=== PATIENT | male | born 1960 | race Caucasian/White ===

== ENCOUNTER 2023-03-05 10:44 | Outpatient (OUT) | payer OTHER, SELFPAY ==
--- NOTE | 2023-03-05 11:12 | XR_ITS ---
The [address] [address] Patient Name: BELLE GEORGE MRN: [id number] date: 1960 Sex: M Assigned Patient Location: [facility] Current Patient Location: [facility] Accession/Order Number: [id number] Exam Date: 03/05/2023 11:12 Report Date: 03/05/2023 13:52 At the request of: RAMAN ROSALES Procedure: XR foot LT min 3V EXAM: XR foot LT min 3V HISTORY: LEFT FOOT PAIN . The patient had an injury to the foot 2 years ago. COMPARISON: None. TECHNIQUE: 4 views of the left foot were obtained. FINDINGS: There is no evidence of an acute fracture or dislocation. Mild degenerative changes are seen at the first metatarsophalangeal joint. Remainder the joint spaces throughout the foot are intact. An osteophyte arises from the plantar aspect of the calcaneus. Small amount of arteriovascular calcification is noted. XR/XR foot LT min 3V IMPRESSION: No acute fracture or dislocation. Degenerative changes are seen at the first metatarsophalangeal joint with joint space otherwise intact throughout. A small osteophyte is seen arising from the plantar aspect of the calcaneus. Direct comparison with a previous study may be helpful. Electronically authenticated by: RAMAN ELLIOTT Date: 03/05/2023 13:52
--- NOTE | 2023-03-05 11:12 | XR_ITS ---
[address] [address] Patient Name: BELLE GEORGE MRN: [id number] date: 1960 Sex: M Assigned Patient Location: [facility] Current Patient Location: [facility] Accession/Order Number: [id number] Exam Date: 03/05/2023 11:12 Report Date: 03/05/2023 13:32 At the request of: RAMAN ROSALES Procedure: XR ankle LT min 3V EXAM: XR ankle LT min 3V HISTORY: LEFT ANKLE PAIN COMPARISON: None. TECHNIQUE: 3 views FINDINGS: No acute fracture or dislocation. Maintained ankle mortise. Unremarkable soft tissues. XR/XR ankle LT min 3V IMPRESSION: Unremarkable exam. Electronically authenticated by: DUC NORMAN Date: 03/05/2023 13:32
== END 2023-03-05 10:45 | disposition home or self-care (01) ==
LOC: RAD 10:44
PROVIDERS: PCP Internal Medicine; Visit Provider Podiatrist Foot & Ankle Surgery
DX: M25.572 Pain in left ankle and joints of left foot (principal); M25.775 Osteophyte, left foot
CPT/HCPCS: 73610; 73630

== ENCOUNTER 2023-05-17 17:16 | Emergency (ER) | payer OTHER, SELFPAY ==
[2023-05-17 17:21] VITALS: BP 152/84; PULSE 76; RESP 20; TEMP 36.6; O2SAT 98; BMI 45.4
--- NOTE | 2023-05-17 17:33 | PC.NURSE ---
Complains of pain to back side of left leg from thigh down to ankle area. Skin pink and warm, no warmth, redness, or any break in skin noted. Patient denies injury to left leg.
--- NOTE | 2023-05-17 17:45 | ED.GENADUL1 ---
HPI - General Adult General Chief complaint: Extremity Injury, Lower Stated complaint: L LEG PAIN Time Seen by Provider: 05/17/23 17:21 Source: patient Mode of arrival: Wheelchair History of Present Illness HPI narrative: patient developed pain without provocation along the left lower leg - posterior and lateral left calf. He denied any recent or prior injury to the left lower leg. It started while he was sitting in a movie theater watching a movie and then it got worse throughout the night. He went to [facility] ED around 130am and was given IM Toradol and muscle relaxer. He seemed upset in telling me the details that he did not have testing done. He was diagn osed with calf strain and given instructions to alternate heat and ice, limit activity and take the muscle relaxer prescribed Patient comes to our ED stating that the pain is no better . PMHx includes DM, HTN, high cholesterol and CAD with stents He denied prior history of vascular disease, DVT or PE. Related Data Home Medications Medication Instructions Recorded Confirmed allopurinol 100 mg tablet 100 mg PO DAILY 05/17/23 05/17/23 atorvastatin 40 mg tablet 40 mg PO DAILY 05/17/23 05/17/23 clopidogrel 75 mg tablet 75 mg PO DAILY 05/17/23 05/17/23 clotrimazole-betamethasone 1 1 applic topical BID 05/17/23 05/17/23 %-0.05 % topical cream gabapentin 300 mg capsule 300 mg PO QPM 05/17/23 05/17/23 isosorbide mononitrate 30 mg 30 mg PO DAILY 05/17/23 05/17/23 tablet,extended release 24 hr lisinopril 20 mg tablet 20 mg PO DAILY 05/17/23 05/17/23 metformin 1,000 mg tablet 1,000 mg PO BID 05/17/23 05/17/23 semaglutide 2 mg/dose (8 mg/3 mL) 2 mg subcut QWEEK 05/17/23 05/17/23 subcutaneous pen injector (Ozempic) tamsulosin 0.4 mg capsule 0.4 mg PO DAILY 05/17/23 05/17/23 tizanidine 4 mg tablet 4 mg PO Q6H PRN muscle spasticity 05/17/23 05/17/23 Allergies Allergy/AdvReac Type Severity Reaction Status Date / Time No Known Drug Allergies Allergy Verified 05/17/23 17:26 Exam Narrative Exam Narrative: Nurses notes and vital signs reviewed and patient is not hypoxic. afebrile General: Well-appearing and in no apparent distress. Skin: Warm, dry, no pallor noted. No rash. Cardiovascular: Regular Rate and Rhythm without murmur, gallop or rub. Respiratory: No accessory muscle use or respiratory distress. Lungs are clear to auscultation, no wheezing, rales or rhonchi Musculoskeletal: Soft tissue tenderness along the posterior and lateral aspect of the left lower leg. Leah's negative. No left popliteal tenderness. No erythema, swelling or ecchymosis noted in the left lower leg. No left thigh or hamstring tenderness. No left knee effusion. Left ankle and foot with normal ROM, no calf or popliteal tenderness, no lower extremity edema/swelling Neurological: A&O x4. No cranial nerve dysfunction observed. No truncal ataxia. Moves all extremities. Sensation intact. Psychiatric: Cooperative and interactive. Normal mood and affect. Constitutional Vital Signs, click to edit/add: Last Vital Signs Temp 97.8 F 05/17/23 17:21 Pulse 76 05/17/23 17:21 Resp 20 05/17/23 17:21 BP 152/84 H 05/17/23 17:21 Pulse Ox 98 05/17/23 17:21 O2 Del Method Room Air 05/17/23 17:21 Course Vital Signs Vital signs: Vital Signs Temperature 97.8 F 05/17/23 17:21 Pulse Rate 76 05/17/23 17:21 Respiratory Rate 20 05/17/23 17:21 Blood Pressure 152/84 H 05/17/23 17:21 Pulse Oximetry 98 05/17/23 17:21 Oxygen Delivery Method Room Air 05/17/23 17:21 Temperature 97.8 F 05/17/23 17:21 Pulse Rate 76 05/17/23 17:21 Respiratory Rate 20 05/17/23 17:21 Blood Pressure 152/84 H 05/17/23 17:21 Pulse Oximetry 98 05/17/23 17:21 Oxygen Delivery Method Room Air 05/17/23 17:21 Medical Decision Making MDM Narrative Medical decision making narrative: d-dimer was negative, so I do not suspect deep vein thrombosis based on combination of this result and his examination. The patient has peripheral neuropathy so I cannot say what to what extent this affecting his leg pain. He was given IM Dilaudid in the emergency Department before being discharged home. He takes Plavix I cannot give additional NSAID. Yard he has Percocet at home as well as muscle relaxer. He does take gabapentin daily at night and I recommended he take that twice daily for the next few days see if that this pain. I instructed him to call his primary care provider on Friday to discuss further. Lab Data Labs: Lab Results 05/17/23 Range/Units 17:55 WBC 6.1 (4.0-11.0) 10^3/uL RBC 3.99 L (4.70-6.10) 10^6/uL Hgb 12.4 L (14.0-18.0) g/dL Hct 37.1 L (42.0-54.0) % MCV 93.0 (80.0-94.0) fL MCH 31.1 (25.9-34.0) pg MCHC 33.4 (29.9-35.2) g/dL RDW 12.9 (11.0-15.0) % Plt Count 224 (150-450) 10^3/uL MPV 10.4 (9.5-13.5) fL Neut % (Auto) 65.8 (43.0-75.0) % Lymph % (Auto) 22.8 (20.5-60.0) % Whiteside % (Auto) 8.6 (1.7-12.0) % Eos % (Auto) 2.3 (0.9-7.0) % Baso % (Auto) 0.2 (0.2-2.0) % Neut # (Auto) 4.0 (1.4-6.5) 10^3/uL Lymph # (Auto) 1.4 (1.2-3.8) 10^3/uL Whiteside # (Auto) 0.5 (0.3-0.8) 10^3/uL Eos # (Auto) 0.1 (0.0-0.7) 10^3/uL Baso # (Auto) 0.0 (0.0-0.1) 10^3/uL Abs Immat Gran (auto) 0.02 (0.00-0.03) 10^3/uL Imm/Tot Granulo (auto) 0.3 (0.0-0.5) % D-Dimer 0.22 (<=0.59) mg/L FEU Sodium 139 (136-145) mmol/L Potassium 4.5 (3.5-5.1) mmol/L Chloride 103 (98-107) mmol/L Carbon Dioxide 24.4 (21.0-32.0) mmol/L Anion Gap 16.1 BUN 22.0 H (7.0-18.0) mg/dL Creatinine 1.25 (0.70-1.30) mg/dL Est GFR ( Amer) >60 (>=60) Est GFR (Non-Af Amer) 59 L (>=60) BUN/Creatinine Ratio 17.6 Glucose 100 (74-106) mg/dL Calcium 8.9 (8.5-10.1) mg/dL Discharge Plan Discharge Chief Complaint: Extremity Injury, Lower Clinical Impression: Lower leg pain, Peripheral neuropathy Patient Disposition: Home, Self-Care Time of Disposition Decision: 18:29 Prescriptions / Home Meds: No Action allopurinol 100 mg tablet 100 mg PO DAILY atorvastatin 40 mg tablet 40 mg PO DAILY clopidogrel 75 mg tablet 75 mg PO DAILY clotrimazole-betamethasone 1-0.05 % cream 1 applic TOPICAL BID gabapentin 300 mg capsule 300 mg PO QPM isosorbide mononitrate 30 mg tablet extended release 24 hr 30 mg PO DAILY lisinopril 20 mg tablet 20 mg PO DAILY metformin 1,000 mg tablet 1,000 mg PO BID Ozempic 2 mg/dose (8 mg/3 mL) pen injector 2 mg SUBCUT QWEEK tamsulosin 0.4 mg capsule 0.4 mg PO DAILY tizanidine 4 mg tablet 4 mg PO Q6H PRN (Reason: muscle spasticity) Instructions: Peripheral Neuropathy (ED), Leg Pain (ED) Stand Alone Forms: Portal Instructions Referrals: ROSA M BEARD [Primary Care Provider] - 1 week
[2023-05-17] MEDS: ONDANSETRON 4 MG RAPDIS TABLET SL (17:47)
[2023-05-17 18:03] LABS: Basophils Percent Auto 0.2 % (0.2-2.0); Eosinophils Absolute Auto 0.1 10^3/uL (0.0-0.7); Eosinophils Percent Auto 2.3 % (0.9-7.0); Hematocrit 37.1 % (42.0-54.0); Hemoglobin 12.4 g/dL (14.0-18.0); Immature Granulocytes Abs Auto 0.02 10^3/uL (0.00-0.03); Immature Granulocytes Pct Auto 0.3 % (0.0-0.5); Lymphocytes Absolute Auto 1.4 10^3/uL (1.2-3.8); Lymphocytes Percent Auto 22.8 % (20.5-60.0); Mean Corpuscular HGB Conc 33.4 g/dL (29.9-35.2); Mean Corpuscular Hemoglobin 31.1 pg (25.9-34.0); Mean Platelet Volume 10.4 fL (9.5-13.5); Monocytes Absolute Auto 0.5 10^3/uL (0.3-0.8); Monocytes Percent Auto 8.6 % (1.7-12.0); Neutrophils Percent Auto 65.8 % (43.0-75.0); Platelet Count 224 10^3/uL (150-450); Red Blood Count 3.99 10^6/uL (4.70-6.10); Red Cell Distribution Width 12.9 % (11.0-15.0); White Blood Count 6.1 10^3/uL (4.0-11.0)
[2023-05-17 18:11] LABS: Anion Gap 16.1; BUN Creatinine Ratio 17.6; Calcium 8.9 mg/dL (8.5-10.1); Carbon Dioxide 24.4 mmol/L (21.0-32.0); Chloride 103 mmol/L (98-107); Estimated GFR (African America >60 (>=60); Estimated GFR (Non-African Ame 59 (>=60); Glucose 100 mg/dL (74-106); Potassium 4.5 mmol/L (3.5-5.1); Sodium 139 mmol/L (136-145)
[2023-05-17 18:24] LABS: D Dimer 0.22 mg/L FEU (<=0.59)
[2023-05-17] MEDS: HYDROMORPHONE HCL 1 MG/ML CARTRIDGE IM (18:51)
[2023-05-17 18:54] VITALS: BP 147/68; PULSE 70; RESP 20; O2SAT 97
== END 2023-05-17 19:08 | disposition home or self-care (01) ==
PROVIDERS: Emergency Provider Emergency Medicine; PCP Internal Medicine
DX: G62.9 Polyneuropathy, unspecified (principal); M79.605 Pain in left leg; E11.9 Type 2 diabetes mellitus without complications; I10 Essential (primary) hypertension; E78.00 Pure hypercholesterolemia, unspecified; I25.10 Atherosclerotic heart disease of native coronary artery without angina pectoris; Z95.5 Presence of coronary angioplasty implant and graft; Z79.899 Other long term (current) drug therapy; Z79.84 Long term (current) use of oral hypoglycemic drugs
CPT/HCPCS: 36415; 80048; 85025; 85378; 96372; 99284; J1170

== ENCOUNTER 2023-07-31 10:33 | Outpatient (OUT) | payer OTHER, SELFPAY ==
--- NOTE | 2023-07-31 | CONS_ITS ---
CONSULTATION DATE: 07/31/2023 TO: Dr. Garcia CHIEF COMPLAINT: Includes severe lower back pain, left leg pain. HISTORY OF PRESENT ILLNESS: Review of systems, past medical/surgical history were obtained and documented on the health questionnaire and is available upon request. He reports having a three month history of lower back pain and leg pain, which started suddenly. It occurred spontaneously and increased rapidly to its current state, where he now has 3-7/10 pain in the above mentioned areas, described as deep, aching in character with a sharp component. It is aggravated with activities such as standing, walking and performing transitioning maneuvers. Patient feels most comfortable in the semi-recumbent position. Denies any change in bowel and bladder habits, and reports tingling and numbness of his left lower extremity. CURRENT MEDICATION: Includes gabapentin 300 mg t.i.d. Although he was prescribed t.i.d., he takes this usually twice a day and sometimes even just once a day. He has also been enrolled in physical therapy, mainly aquatic therapy. He has been doing this for at least the last six weeks and reports he will be finishing up supervised therapy shortly. EXAM: His examination is notable for patient having mild hypoesthesia along the left L5 dermatome, very mild weakness of the left EHL. Straight leg raise is positive at approximately 90 degrees. Depressed left Achilles reflex. He had no signs consistent with myelopathy involving the lower extremities. IMAGING: I did review his lumbar MRI, was notable for a left L5 nerve root impingement, significant disc bulge at L4-5, and concomitant left L5 radiculopathy by EMG. IMPRESSION: Patient with chronic pain secondary to left L5 radiculopathy from displaced disc. RECOMMENDATIONS: I recommend he consider lumbar epidural steroid injection. We will reduce the dose of corticosteroid to 40 mg Depo-Medrol 1 mL. I have asked him to discontinue gabapentin. I have given him a weaning protocol, and we will start him on Zonegran 100 mg to 200 mg at h.s., and then we will stagger this with the use of baclofen 10 mg pills, half a pill to one pill at h.s. He is to start this approximately 2-4 days after initiating therapy with Zonegran. I have asked him to continue with aquatic therapy. I have gone over the details of the procedure with the patient. All his questions were answered. He agrees to proceed with the outlined plan. As part of providing excellent, safe, comprehensive care, the following was completed at our patient's visit: 1. A medication reconciliation and review to ensure accurate knowledge of current/active medications, including asking our patients to inform us about any [id number] medications or herbal remedies/nutritional supplements/alternative remedies. 2. A review to specifically ensure our patients have had annual screening for: elevated body mass index (BMI, see intake chart for exact total), tobacco use, screening for depression, and screening for unhealthy alcohol use. When screening is concerning, patients are provided with education and the specific recommendation to discuss the concerning health issue and treatment options with their primary care provider. SUSI
== END 2023-07-31 10:34 | disposition home or self-care (01) ==
LOC: PM 10:34
PROVIDERS: PCP Internal Medicine; Visit Provider Anesthesiology Pain Medicine
DX: M54.16 Radiculopathy, lumbar region (principal); M51.26 Other intervertebral disc displacement, lumbar region
CPT/HCPCS: G0463

== ENCOUNTER 2023-08-19 09:52 | Day surgery (SDC) | payer OTHER, SELFPAY ==
[2023-08-19 10:15] VITALS: BP 142/81; PULSE 70; RESP 16; TEMP 36.2; O2SAT 99
[2023-08-19 10:20] LABS: Glucometer 156 mg/dL (74-106)
[2023-08-19] MEDS: LIDOCAINE HCL 2% PF 100 MG/5 ML VIAL 2 ML INJ (11:41)
[2023-08-19] MEDS: METHYLPREDNISOLONE ACETATE 80 MG/ML VIAL INJ (11:41)
[2023-08-19] MEDS: 0.9 % SODIUM CHLORIDE 10 ML SYRINGE - SALINE FLUSH 2 ML INJ (11:41)
[2023-08-19] MEDS: BUPIVACAINE HCL 0.25% PF 25 MG/10 ML VIAL 2 ML INJ (11:41)
[2023-08-19] MEDS: IOHEXOL 240 MG/ML - 10 ML VIAL INJ (11:41)
--- NOTE | 2023-08-19 11:57 | P.ON_ITS ---
Date of procedure: 08/19/23 Pre-op diagnosis: Lumbar Radiculopathy Post-op diagnosis: same as pre-op Procedure: Lumbar 4/5 Epidural Steroid Injection Under fluoroscopic guidance Immediate complications none Solution used for injection: Marcaine 0.25% 2mL, 2cc Normal saline, Depo-Medrol 80mg Omnipaque 3 mL Anesthesia local 2% lidocaine up to 4ml Timeout process compliant After informed consent obtained. Patient brought to the procedure room placed in the prone position. Skin overlying the area was prepped and draped in a sterile fashion using betadine. 25 gauge needle used to raise a skin wheel with local anesthetic over the target area identified under fluoroscopy. A 17 gauge Touhy needle Was inserted over the anesthetized area and directed towards the inter- space under fluoroscopic guidance. Epidural space was identified with loss of resistance technique to air. Needle Tip placement confirmed with injection of contrast solution. Steroid solution was then injected. Anesthesia: Local Surgeon: Yancy Rodrigues Condition: stable
[2023-08-21 10:55] VITALS: BP 160/90; BP 164/82; PULSE 68; PULSE 72; RESP 20; O2SAT 97; O2SAT 98
== END 2023-08-19 11:52 | disposition home or self-care (01) ==
LOC: SURGOUT 09:52
PROVIDERS: PCP Internal Medicine; Visit Provider Anesthesiology Pain Medicine
DX: M54.16 Radiculopathy, lumbar region (principal)
CPT/HCPCS: 36415; 62323; 82948; J0665; J1040; Q9966

== ENCOUNTER 2023-08-28 09:37 | Outpatient (OUT) | payer OTHER, SELFPAY ==
--- OUTSIDE RECORDS SUMMARY | 2023-08-28 09:45 | XMS_ITS | CCD ---
Author Name Unknown Address [address] [place] [address] Organization [facility] Care Team Providers Care Web Analytics Developer Name Role Phone Sanju Beard Unavailable Unavailable Unavailable SANJU BEARD Primary Care Physician Unavail able Jermaine Turk Unavailable DO Sanju Beard Primary Care Provider DO Sanju Beard Attending Provider [phone] DR SANJU BEARD Primary Care Unavailable DOMINGUEZ, DR MARTE Admitting Unavailable DOMINGUEZ, DR MARTE Attending Unavailable DOMINGUEZ, DR MARTE Consulting Unavailable MARIAMA, DR ANAM Duong Consulting Unavailable DOMINGUEZ, DR MARTE Consulting Unavailable DOMINGUEZ, DR MARTE Admitting Unavailable DOMINGUEZ, DR MARTE Attending Unavailable CHIRAG, DR MEDEROS Primary Care Unavailable DOMINGUEZ, DR MARTE Admitting Unavailable DOMINGUEZ, DR MARTE Attending Unavailable DOMINGUEZ, DR MARTE Consulting Unavailable CHIRAG, DR MEDEROS Primary Care Unavailable MARIAMA, DR ANAM Duong Consulting Unavailable DOMINGUEZ, DR MARTE Admitting Unavailable DOMINGUEZ, DR MARTE Attending Unavailable DOMINGUEZ, DR MARTE Consulting Unavailable CHIRAG, DR MEDEROS Primary Care Unavailable IRENE PATINO Consulting Unavailable DOMINGUEZ, DR MARTE Admitting Unavailable DOMINGUEZ, DR MARTE Attending Unavailable DOMINGUEZ, DR MARTE Consulting Unavailable CHIRAG, DR MEDEROS Primary Care Unavailable CHACHA PANDYA Consulting Unavailable GEENA FLEMING Consulting Unavailable DOMINGUEZ, DR MARTE Admitting Unavailable DOMINGUEZ, DR MARTE Attending Unavailable DOMINGUEZ, DR MARTE Consulting Unavailable CHIRAG, DR MEDEROS Primary Care Unavailable Lani Luevano Admitting Unavailable Lani Luevano Referring Unavailable Sanju Beard Primary Care Unavailable Lani Luevano Attending Unavailable Sanju Beard Primary Care Unavailable Fer Beasley Attending Unavailable Fer Beasley Admitting Unavailable Lani Luevano Admitting Unavailable Sanju Beard Primary Care Unavailable Lani Luevano Attending Unavailable Henny Katz Attending Unavailable Henny Katz Admitting Unavailable Sanju Beard Primary Care Unavailable Estuardo Mix Consulting Unavailable Aleksandr Stewart Consulting Unavailable Steve Plaza Consulting Unavailable Antonio Bartlett Jr Unavailable Denise Mcintosh Consulting Unavailable Daniel Mg Consulting Unavailable Jennifer Ogden Consulting Unavailable Lani Luevano Consulting Unavailable Srinivas Majano Consulting Unavailable Everette Posadas Consulting Unavail able Ishan Justice Consulting Unavailable Ti Martinez Consulting Unavailab Aura Almaraz Consulting Unavailable Maribell Murguia Consulting Unavailable Joseph Boyce Consulting Unavailab Yas Marte Consulting Unavailable Jermaine Turk Consulting Unavailable Lani Luevano Attending Unavailable Lani Luevano Admitting Unavailable Sanju Beard [facility] Unavailable Sanju Beard [facility] Unavailable Sanju Beard Admitting Unavailable Sanju Beard Attending Unavailable Dr. Sanju Beard [facility] Katie Beard, Dr. Sanju Fletcher [facility] Katie Posadas II, Dr. Everette Marte Referring Unavailable Everette Luevano Attending Unavailable Dr. Sanju Beard [facility] Sanju Rowell [facility] Unavailable Axel Light Admitting Unavailable Axel Light Attending Unavailable Leodan GAY Referring Unavailable Leodan GAY Attending Unavailable Leodan GAY Admitting Unavailable Leodan GAY Admitting Unavailable Leodan GAY Attending Unavailable Estuardo MIX Attending Unavailable SANJU BEARD Referring Unavailable Joe Limon Attending Unavailable Leodan GAY Admitting Unavailable Leodan GAY Attending Unavailable NONE, XXXX Referring Unavailable Leodan GAY Attending Unavailable Leodan GAY Admitting Unavailable JAX, XXXX Referring Unavailable Joe Limon Attending Unavailable Joe Limon Admitting Unavailable Joe Limon Referring Unavailable IVA TINSLEY Attending Unavailable SANJU BEARD Referring Unavailable BRANDT ANTONIO Attending Unavailable BRANDT ANTONIO Referring Unavailable BRANDT ANTONIO Attending Unavailable YEYO TRUONG Attending Unavailable SANJU BEARD Attending Unavailable Allergies Allergy Classification Reported Allergen(s) Allergy Type Date of Onset Reaction(s) Facility (1 source) No Known Medication Allergies; Translations: [No Known Medication Allergies] Propensity to adverse reactions to drug (disorder) [facility] Repository Medications Current Medications Medication Drug Class(es) Dates Sig (Normalized) Sig (Original) 3 ML semaglutide 1.34 MG/ML Pen Injector [Ozempic] (6 sources) Start: 07-31-2022 Ozempic (1 mg dose) 4 mg/3 mL subcutaneous solution Refills(s) 0 Start Date: 07/31/22 Status: Ordered allopurinol 100 mg oral tablet (20 sources) Xanthine Oxidase Inhibitor Start: 10-11-2018 take 1 mg by mouth twice daily allopurinol 100 mg Tab mg tab(s), Oral, BID, Refills(s) 0 Start Date: 12/03/21 Status: Ordered take 1 tablet by mouth once ramsey y Allopurinol 100 MG Oral Tablet TAKE 1 TABLET DAILY. Quantity: 90 Refills: 3 Ordered: 30-Oct-2021 DO Active aspirin 81 mg delayed release oral tablet (20 sources) Platelet Aggregation Inhibitor, Nonsteroidal Anti-inflammatory Drug Start: 12-03-2021 take 1 mg by mouth once daily aspirin 81 mg Oral EC Tab mg tab(s), Oral, Daily, Refills(s) 0 Start Date: 12/03/21 Status: Ordered Start: 12-03-2021 take 1 mg by mouth once daily aspirin 81 mg Oral EC Tab mg tab(s), Oral, Daily, Refills(s) 0 Start Date: 12/03/21 Status: Ordered Start: 10-11-2018 take 81 mg by mouth once daily Aspirin Active 81 MG PO Daily October 11, 2018 1:00am atorvastatin 40 mg oral tablet (20 sources) HMG-CoA Reductase Inhibitor Start: 11-19-2021 take 1 mg by mouth once daily atorvastatin 40 mg Tab mg tab(s), Oral, Daily, Refills(s) 0 Start Date: 12/03/21 Status: Ordered Start: 10-16-2018 End: 11-19-2021 take 80 mg by mouth once daily in the evening Atorvastatin Discontinued 80 MG PO Every evening October 16, 2018 1:00am November 19, 2021 2:02pm Start: 10-13-2018 End: 10-16-2018 take 20 mg by mouth at bedtime Atorvastatin Discontinu ed 20 MG PO Bedtime October 13, 2018 1:00am October 16, 2018 10:04am carvedilol 6.25 mg oral tablet (20 sources) alpha-Adrenergic Petr, beta-Adrenergic Petr Start: 02-26-2022 take 1 tablet by mouth twice daily carvedilol 6.25 mg Tab 6.25 mg = 1 tab(s), Oral, BID Start Date: 02/26/22 Status: Ordered Start: 10-16-2018 take 1 tablet by jose th twice daily Carvedilol 12.5 MG Oral Tablet Take 1 tablet twice a day Quantity: 180 Refills: 3 Ordered: 28-Sep-2021 Everette Posadas MD Start : 28-Sep-2021 Active Start: 10-11-2018 End: 10-16-2018 take 1 tablet by mouth twice daily Carvedilol (Coreg) 6.25 mg Tablet Discontinued 6.25 MG PO Twice daily October 11, 2018 1:00am October 16, 2018 10:04am cephalexin 500 mg oral capsule (20 sources) Cephalosporin Antibacterial Start: 01-03-2022 take 1 capsule by mouth once daily Keflex 500 mg Cap 500 mg = 1 cap(s), Oral, Daily, # 30 cap(s), Refills(s) 0, Pharmacy: [id number], 185, cm, 12/03/21 10:02:00 EDT, Height/Length Dosing, 142, kg, 12/03/21 10:02:00 EDT, Weight Dosing Start Date: 01/03/22 Status: Ordered Start: 12-03-2021 take 1 capsule by mo [facility] once daily Keflex 500 mg Cap 500 mg = 1 cap(s), Oral, Daily, # 30 cap(s), Refills(s) 0, Pharmacy: [id number], 185, cm, 12/03/21 10:02:00 EDT, Height/Length Dosing, 142, kg, 12/03/21 10:02:00 EDT, Weight Dosing Start Date: 12/03/21 Status: Ordered Start: 11-23-2021 End: 01-01-2022 take 500 mg by mouth every six hours Cephalexin Active 500 MG PO Q6H January 01, 2022 9:20am Start: 04-16-2021 End: 11-19-2021 take 500 mg by mouth twice daily Cephalexin Discontinued 500 MG PO Twice daily 14 April 16, 2021 12:00am November 19, 2021 2:02pm cholecalciferol 0.125 mg oral tablet (2 sources) Vitamin D Start: 10-15-2018 take 1 tablet by mouth once daily in the morning Cholecalciferol (Vitamin D3) (Vitamin D3) 5,000 unit Tablet Active 5000 UNIT PO Every morning October 15, 2018 1:00am clopidogrel 75 mg oral tablet (20 sources) [id number] Platelet Inhibitor Start: 01-10-2022 End: 12-21-2023 take 1 tablet by mouth once daily Plavix 75 mg Tab 75 mg = 1 tab(s), Oral, Daily, X 90 day(s), # 90 tab(s), Refills(s) 3, Pharmacy: [id number], 185, cm, 07/31/22 11:06:00 EST, Height/Length Dosing, 150, kg, 07/31/22 11:06:00 EST, Weight Dosing Start Date: 12/26/22 Stop Date: 12/21/23 Status: Ordered Start: 01-10-2022 take 4 tablets by mouth once P lavix 75 mg Tab 300 mg = 4 tab(s), Oral, Once, 300 mg Loading Dose, # 4 tab(s), Refills(s) 0, Pharmacy: [id number], 186, cm, 01/10/22 14:52:00 EDT, Height/Length Dosing, 149, kg, 01/10/22 14:52:00 EDT, Weight Dosing Start Date: 01/10/22 Status: Ordered dulaglutide (12 sources) GLP-1 Receptor Agonist Start: 12-03-2021 Trulici ty Pen SubCutaneous, qWeek, Refills(s) 0 Start Date: 12/03/21 Status: Ordered Start: 10-11-2018 End: 11-19-2021 inject 1.5 mg by subcutaneous injection every week Dulaglutide Discontinued 1.5 MG SUBCUT every week October 15, 2018 1:00am November 19, 2021 6:09pm QTHURSDAY Trulicity 4.5 MG /0.5ML as directed Subcutaneous ONCE A WEEK Active Dulaglutide (Trulicity) 4.5 mg/0.5 mL pen injector (2 sources) Start: 11-19-2021 Dulaglutide (Trulicity) 4.5 mg/0.5 mL pen injector Active 4.5 MG SUBCUT TH November 19, 2021 12:00am indomethacin 25 mg oral capsule (7 sources) Nonsteroidal Anti-inflammatory Drug Start: 07-09-2022 take 1 mg by mouth three times daily indomethacin 25 mg Cap mg cap(s), Oral, TID Start Date: 07/09/22 Status: Ordered Insulin Aspart U-100 (Novolog Flexpen U-100 Insulin) 100 unit/mL (3 mL) insulin pen (2 sources) Start: 11-19-2021 inject 1 dose by subcutaneous injection three times daily Insulin Aspart U-100 (Novolog Flexpen U-100 Insulin) 100 unit/mL (3 mL) insulin pen Active 1 sliding scale dose SUBCUT Three times daily November 19, 2021 12:00am NovoLog (18 sources) Insulin Analog Start: 12-03-2021 NovoLog SubCutaneous, TIDAC, Refills(s) 0 Start Date: 12/03/21 Status: Ordered NovoLOG FlexPen 100 UNIT/ML as directed Subcutaneous SLIDING SCALE Active NovoLOG PenFill 100 UNIT/ML SOLN INJECT SUBCUTANEOUSLY DIRECTED. Quantity: 0 Refills: 0 Ordered: 30-Oct-2021 DO Active 3 ml insulin detemir 100 unt/ml pen injector (20 sources) Insulin Analog Start: 12-03-2021 Levemir FlexTo uch 100 units/mL subcutaneous solution SubCutaneous, Refills(s) 0 Start Date: 12/03/21 Status: Ordered Start: 12-03-2021 Levemir FlexTo uch 100 units/mL subcutaneous solution SubCutaneous, Refills(s) 0 Start Date: 12/03/21 Status: Ordered Start: 10-11-2018 Insulin Detemi r U-100 (Levemir Flextouch U-100 Insuln) 100 unit/mL (3 mL) Insulin Pen Active 32 UNIT SUBCUT Twice daily October 11, 2018 1:00am Isosorbide Dinitrate (14 sources) Nitrate Vasodilator Start: 12-03-2021 isosorbide dinitrate Oral, Refills(s) 0 Start Date: 12/03/21 Status: Ordered lisinopril 20 mg oral tablet (20 sources) Angiotensin Converting Enzyme Inhibitor Start: 10-16-2018 End: 01-01-2022 take 1 mg by mouth once daily lisinopril 20 mg Tab mg tab(s), Oral, Daily, Refills(s) 0 Start Date: 12/03/21 Status: Ordered Start: 10-11-2018 End: 10-16-2018 take 10 mg by mouth at bedtime Lisinopril Discontinued 10 MG PO Bedtime October 11, 2018 1:00am October 16, 2018 10:03am metFORMIN hydrochloride 1000 mg oral tablet (20 sources) Biguanide Start: 10-11-2018 End: 01-01-2022 take 1 mg by mouth twice daily metformin 1000 mg oral tablet mg tab(s), Oral, BID, Refills(s) 0 Start Date: 12/03/21 Status: Ordered take 1 tablet by jose th every twelve hours metFORMIN HCl - 1000 MG Oral Tablet TAKE 1 TABLET EVERY 12 HOURS. Quantity: 0 Refills: 0 Ordered: 30-Oct-2021 DO Active Multivitamins and Minerals (14 sources) Start: 12-03-2021 Multivitamins and Minerals Refill(s) 0 Start Date: 12/03/21 Status: Ordered nitroglycerin 0.4 mg/actuat mucosal spray (9 sources) Nitrate Vasodilator Start: 07-09-2022 nitroglyce rin 0.4 mg SubL [place] mg spray(s), SubLingual, q5min Start Date: 07/09/22 Status: Ordered Start: 10-13-2018 End: 02-10-2019 Nitroglycerin Discontinued 0 .4 MG SUBLINGUAL every 5 to 15 minutes October 13, 2018 1:00am February 10, 2019 12:02am until response; do not exceed 3 doses per episode Suflave oral powder for reconstitution kit (3 sources) Start: 05-02-2023 Suflave oral powder for reconstitution kit See Instructions, 1 EA, Refill(s) 0, Oral Please see instructions given by provider, [facility], 185, cm, 05/02/23 11:10:00 EDT, Height/Length Dosing, 158, kg, 05/02/23 11:10:00 EDT, Weight Dosing Start Date: 05/02/23 Status: Ordered tamsulosin hydrochloride 0.4 mg oral capsule (7 sources) alpha-Adrenergic Petr Start: 07-09-2022 take 1 capsule by mouth once daily tamsulosin 0.4 mg Cap 0.4 mg = 1 cap(s), Oral, Daily, # 90 cap(s), Refills(s) 3, Pharmacy: [facility], 185, cm, 07/09/22 10:50:00 EST, Height/Length Dosing, 151.4, kg, 07/09/22 10:50:00 EST, Weight Dosing Start Date: 07/09/22 Status: Ordered temazepam 15 mg oral capsule (7 sources) Benzodiazepine Start: 07-09-2022 take 1 mg by mouth once daily at bedtime temazepam 15 mg Cap mg cap(s), Oral, Once a day (at bedtime) Start Date: 07/09/22 Status: Ordered Vitamin D3 (14 sources) Start: 12-03-2021 Vitamin D3 Refills(s) 0 Start Date: 12/03/21 Status: Ordered Vitamin D3 125 MCG (5000 UT) (1 source) Vitamin D3 125 M CG (5000 UT) as directed Orally Active Zinc (3 sources) Start: 11-19-2021 take 50 mg by mouth once daily at bedtime Zinc Active 50 MG PO Daily at bedtime November 19, 2021 12:00am take 1 tablet by mouth once rasmey y Zinc 50 MG 1 tablet Orally Once a day Active Completed/Discontinued Medications Medication Drug Class(es) Dates Sig (Normalized) Sig (Original) benzonatate 200 mg oral capsule (2 sources) Non-narcotic Antitussive Start: 04-16-2021 End: 11-19-2021 take 200 mg by mouth three times daily Benzonatate Discontinued 200 MG PO Three times daily April 16, 2021 12:00am November 19, 2021 2:02pm celecoxib 200 mg oral capsule (10 sources) Nonsteroidal Anti-inflammatory Drug Start: 11-19-2021 End: 11-23-2021 take 1 capsule by mouth once daily Celecoxib (Celebrex) 200 mg Capsule Discontinued 200 MG PO Daily November 19, 2021 12:00am November 23, 2021 11:34am ciprofloxacin 500 mg oral tablet (4 sources) Quinolone Antimicrobial Start: 02-26-2022 take 1 tablet by mouth every twelve hours Cipro 500 mg Tab 500 mg = 1 tab(s), Oral, q12hr, Take 1 tab after stent removal the day of stent removal and 1 tab 12 hours after that., # 2 tab(s), Refills(s) 0, Pharmacy: [id number], 185, cm, 02/25/22 8:41:00 EDT, Height/Length Dosing, 146, kg, ... Start Date: 02/26/22 Status: Ordered Start: 12-03-2021 take 1 mg by mouth e very twelve hours Cipro 250 mg Tab mg tab(s), Oral, q12hr, Refills(s) 0 Start Date: 12/03/21 Status: Ordered diclofenac sodium 0.01 mg/mg topical gel (9 sources) Nonsteroidal Anti-inflammatory Drug Start: 07-09-2022 Voltaren Gel 1% Gel gm, Topical, QID Start Date: 07/09/22 Status: Ordered Start: 11-21-2021 Diclofenac Sod ium (Voltaren Arthritis Pain) 1 % Gel Active 2 GM TOPICAL Four times daily November 21, 2021 12:00am ibuprofen 800 mg oral tablet (2 sources) Nonsteroidal Anti-inflammatory Drug Start: 10-11-2018 End: 10-13-2018 take 800 mg by mouth three times daily Ibuprofen Discontinued 800 MG PO Three times daily October 11, 2018 1:00am October 13, 2018 3:00pm 3 ml insulin lispro 100 unt/ml pen injector (2 sources) Insulin Analog Start: 10-11-2018 End: 11-19-2021 inject 25 [IU] by subcutaneous injection once Insulin Lispro Discontinued 25 UNITS SUBCUT 3x/Day at 7a,12p,5p October 11, 2018 1:00am November 19, 2021 6:06pm isosorbide mononitrate 20 mg oral tablet (17 sources) Nitrate Vasodilator Start: 11-19-2021 End: 11-19-2021 take 30 mg by mouth once daily Isosorbide Mononitrate Discontinued 30 MG PO Daily November 19, 2021 2:04pm November 19, 2021 6:12pm Start: 09-17-2021 take 1 tablet by jose th once daily Isosorbide Mononitrate ER 30 MG Oral Tablet Extended Release 24 Hour Take 1 tablet daily Quantity: 90 Refills: 3 Ordered: 20-Sep-2021 Everette Posadas MD Start : 17-Sep-2021 Active Start: 10-16-2018 End: 11-19-2021 take 10 mg by mouth twice daily Isosorbide Mononitrate Discontinued 10 MG PO Twice Daily at 0700 and 1400 30 30 October 16, 2018 1:00am November 19, 2021 2:04pm K-Effervescent 25 mEq oral tablet, effervescent (7 sources) Start: 07-09-2022 take 1 tablet by mouth twice daily K-Effervescent 25 mEq oral tablet, effervescent 25 mEq = 1 tab(s), Oral, BID, # 180 tab(s), Refills(s) 3, Pharmacy: [facility], 185, cm, 07/09/22 10:50:00 EST, Height/Length Dosing, 151.4, kg, 07/09/22 10:50:00 EST, Weight Dosing Start Date: 07/09/22 Status: Ordered Multivitamin preparation (2 sources) Start: 10-11-2018 End: 01-01-2022 take 1 tablet by mouth once daily Multivitamin Discontinued 1 TAB PO Daily October 11, 2018 1:00am January 01, 2022 9:20am NovoLOG PenFill 100 UNIT/ML SOLN (5 sources) NovoLOG PenFill 100 UNIT/ML SOLN INJECT SUBCUTANEOUSLY DIRECTED. Quantity: 0 Refills: 0 Ordered: 30-Oct-2021 DO Active phenazopyridine hydrochloride 200 mg oral tablet (2 sources) Start: 04-16-2021 End: 11-19-2021 take 200 mg by mouth three times daily at mealtime Phenazopyridine Discontinued 200 MG PO Three times daily 05 13April 16, 2021 12:00am November 19, 2021 2:23pm administer with a full glass of water after each meal predniSONE 50 mg oral tablet (2 sources) Start: 04-16-2021 End: 11-19-2021 take 50 mg by mouth once daily Prednisone Discontinued 50 MG PO Daily 11 12April 16, 2021 12:00am November 19, 2021 2:03pm simvastatin 40 mg oral tablet (2 sources) HMG-CoA Reductase Inhibitor Start: 10-11-2018 End: 10-13-2018 take 40 mg by mouth at bedtime Simvastatin Discontinued 40 MG PO Bedtime October 11, 2018 1:00am October 13, 2018 3:01pm ticagrelor 90 mg oral tablet (2 sources) Start: 10-13-2018 End: 11-19-2021 take 1 tablet by mouth twice daily Ticagrelor (Brilinta) 90 mg Tablet Discontinued 90 MG PO Twice daily 180 90 October 13, 2018 1:00am November 19, 2021 2:03pm Trulicity 4.5 MG/0.5ML Subcutaneous Solution Pen-injector (8 sources) Trulicity 4.5 MG/0.5ML Subcutaneous Solution Pen-injector Inject once weekly Quantity: 0 Refills: 0 Ordered: 30-Oct-2021 DO Active Problems Active Problems Problem Classification Problem Date Documented Da te Episodic/Chronic Abdominal pain (1 source) Flank pain; Translations: [Flank pain] Episodic Acute myocardial infarction (3 sources) Myocardial infarction; Translations: [Myocardial infarction type 2] Onset: 11-19-2021 11-23-2021 Chronic Calculus of urinary tract (20 sources) Kidney stone; Translations: [Calculus of kidney] Onset: 11-19-2021 Resolved: 12-27-2021 Episodic Chronic obstructive pulmonary disease and bronchiectasis (2 sources) Bronchitis; Translations: [Bronchitis, not specified as acute or chronic] 04-16-2021 Episodic Conditions associated with dizziness or vertigo (1 source) Conditions associated with dizziness or vertigo; Translations: [H81.12 - Benign paroxysmal vertigo, left ear] Onset: 12-25-2021 Coronary atherosclerosis and other heart disease (15 sources) Coronary arteriosclerosis; Translations: [Coronary atherosclerosis of unspecified type of vessel, [place] or graft] Onset: 02-18-2022 10-12-2018 Chronic Diabetes mellitus with complications (2 sources) Hyperosmolarity due to secondary diabetes mellitus; Translations: [Type 2 diabetes mellitus with hyperosmolarity without nonketotic hyperglycemic-hyperos molar coma (NKHHC)] Onset: 12-27-2021 Resolved: 12-27-2021 Chronic Diabetes mellitus without complication (20 sources) Diabetes mellitus; Translations: [Diabetes mellitus without mention of complication, type II or unspecified type, not stated as uncontrolled] Onset: 11-19-2021 12-03-2021 Chronic Diabetes mellitus without complication (2 sources) Acute hyperglycemia; Translations: [Hyperglycemia, unspecified] 11-19-2021 Episodic Disorders of lipid metabolism (20 sources) Hyperlipidemia; Translations: [Other and unspecified hyperlipidemia] Onset: 02-18-2022 12-03-2021 Chronic Essential hypertension (20 sources) Benign essential hypertension; Translations: [Benign essential hypertension] Onset: 11-19-2021 Resolved: 12-27-2021 12-03-2021 Chronic Hyperplasia of prostate (8 sources) Benign prostatic hypertrophy without outflow obstruction; Translations: [Benign prostatic hyperplasia without lower urinary tract symptoms] Onset: 07-09-2022 Chronic Nonspecific chest pain (2 sources) Chest pain; Translations: [Chest pain, unspecified] 10-11-2018 Episodic Osteoarthritis (1 source) Unspecified osteoarthritis, unspecified site; Translations: [UNSPECIFIED OSTEOARTHRITIS UNS SITE] Onset: 02-18-2022 Chronic Other aftercare (1 source) penitentiary (current) use of aspirin; Translations: [SNF CURRENT USE OF ASPIRIN] Onset: 02-18-2022 Episodic Other aftercare (1 source) rat exterminator (current) use of oral hypoglycemic drugs; Translations: [SNF USE ORAL HYPOGLYCEMIC DX] Onset: 02-18-2022 Episodic Other aftercare (1 source) Other alf (current) drug therapy; Translations: [OTH GOLF PROFESSIONAL CURRENT DRUG THERAPY] Onset: 02-18-2022 Episodic Other aftercare (1 source) rat exterminator (current) use of insulin; Translations: [SNF CURRENT USE OF INSULIN] Onset: 02-18-2022 Episodic Other aftercare (2 sources) Long-term current use of aspirin; Translations: [penitentiary (current) use of aspirin] Onset: 07-09-2022 Episodic Other aftercare (1 source) Long-term current use of anticoagulant; Translations: [penitentiary (current) use of anticoagulants] Onset: 05-02-2023 Episodic Other and unspecified benign neoplasm (1 source) Serrated polyp of colon; Translations: [Serrated polyp of colon] Episodic Other connective tissue disease (1 source) Presence of right artificial hip joint; Translations: [PRESENCE RIGHT ARTIFICIAL HIP JOINT] Onset: 02-18-2022 Chronic Other connective tissue disease (8 sources) Muscle pain; Translations: [Myalgia and myositis, unspecified] Episodic Other gastrointestinal disorders (1 source) Abnormal feces; Translations: [Other fecal abnormalities] Onset: 05-02-2023 Episodic Other injuries and conditions due to external causes (1 source) Foreign body in bladder; Translations: [Foreign body in bladder, initial encounter] Onset: 12-03-2021 Episodic Other lower respiratory disease (8 sources) Dyspnea; Translations: [Shortness of breath] Episodic Other nutritional; endocrine; and metabolic disorders (20 sources) Body mass index 40+ - severely obese; Translations: [Body Mass Index 45.0-49.9, adult] Onset: 05-02-2023 Chronic Other nutritional; endocrine; and metabolic disorders (20 sources) Morbid obesity; Translations: [Morbid (severe) obesity due to excess calories] Onset: 12-03-2021 Chronic Other nutritional; endocrine; and metabolic disorders (1 source) Obesity, unspecified; Translations: [OBESITY UNSPECIFIED] Onset: 02-18-2022 Chronic Other nutritional; endocrine; and metabolic disorders (1 source) Body mass index (BMI) 40.0-44.9, adult; Translations: [BODY MASS INDEX BMI 40.0-44.9 ADULT] Onset: 02-18-2022 Chronic Other nutritional; endocrine; and metabolic disorders (1 source) Morbid (severe) obesity due to excess calories; Translations: [E66.01 - Morbid (severe) obesity due to excess calories] Onset: 11-19-2021 Chronic Other nutritional; endocrine; and metabolic disorders (2 sources) History of diabetes mellitus type 2; Translations: [Personal history of other endocrine, nutritional and metabolic disease] 11-19-2021 Episodic Other screening for suspected conditions (not mental disorders or infectious disease) (11 sources) Thallium stress test abnormal; Translations: [Other nonspecific abnormal results of function study of cardiovascular system] Onset: 11-19-2021 10-12-2018 Episodic Residual codes; unclassified (2 sources) Obstructive sleep apnea syndrome; Translations: [Obstructive sleep apnea (adult) (pediatric)] Chronic Residual codes; unclassified (1 source) Sleep apnea, unspecified; Translations: [SLEEP APNEA UNSPECIFIED] Onset: 02-18-2022 Chronic Unclassified (7 sources) Long-term current use of aspirin 07-09-2022 Unclassified (1 source) Z01.812 - Encounter for preprocedural laboratory examination; Translations: [Z01.812 - Encounter for preprocedural laboratory examination] Onset: 01-01-2022 Unclassified (1 source) R06.02 - Shortness of breath; Translations: [R06.02 - Shortness of breath] Onset: 12-26-2021 Unclassified (3 sources) Drug therapy finding 05-02-2023 Urinary tract infections (4 sources) Urinary tract infectious disease; Translations: [Urinary tract infection, site not specified] 11-19-2021 Episodic Urinary tract infections (1 source) Urinary tract infections; Translations: [N39.0 - Urinary tract infection, site not specified] Onset: 11-19-2021 Past or Other Problems Problem Classification Problem Date Documented Da te Episodic/Chronic Acute and unspecified renal failure (6 sources) Acute kidney failure, unspecified; Translations: [Injury of kidney] Onset: 11-19-2021 Resolved: 12-27-2021 Episodic Conditions associated with dizziness or vertigo (1 source) Dizziness and giddiness; Translations: [Dizziness and giddiness] Onset: 04-03-2022 Episodic Coronary atherosclerosis and other heart disease (2 sources) Presence of coronary angioplasty implant and graft; Translations: [PRESENCE COR ANGPLSTY IMPLANT AND GRAFT] Onset: 11-19-2021 Episodic Fluid and electrolyte disorders (3 sources) Hyponatremia; Translations: [Hypo-osmolality and hyponatremia] Onset: 11-19-2021 11-19-2021 Episodic Immunizations and screening for infectious disease (1 source) Contact with and (suspected) exposure to tuberculosis; Translations: [CONTACT WITH EXPOSURE TUBERCULOSIS] Onset: 02-07-2022 Episodic Malaise and fatigue (1 source) Weakness; Translations: [R53.1 - Weakness] Onset: 11-19-2021 Episodic Other aftercare (1 source) penitentiary (current) use of anticoagulants; Translations: [SNF CURRNT USE ANTICOAGULANTS] Onset: 02-07-2022 Episodic Other injuries and conditions due to external causes (1 source) Foreign body in bladder, initial encounter; Translations: [FOREIGN BODY BLADDER INITIAL ENCNTR] Onset: 12-05-2021 Episodic Other nervous system disorders (1 source) Other abnormalities of gait and mobility; Translations: [R26.89 - Other abnormalities of gait and mobility] Onset: 11-19-2021 Episodic Other nutritional; endocrine; and metabolic disorders (1 source) Personal history of other endocrine, nutritional and metabolic disease; Translations: [Z86.39 - Personal history of other endocrine, nutritional and metabolic disease] Onset: 11-19-2021 Episodic Unclassified (8 sources) Never smoked tobacco; Translations: [Never a smoker] Results Test Name Value Interpretation Reference Range Facility [facility] 08-13-2023 Forms [id number]# 1.00TIFF Normal [facility] MR LUMBAR SPINE WO CONTRASTo n 07-09-2023 MR LUMBAR SPINE WO CONTRAST EXAM: MR LUMBAR SPINE WO CONTRAST History: LUMBAR RADICULOPATHY Technique: Multiplanar multisequence MRI of the lumbar spine was obtained without intravenous contrast. Comparison: Lumbar spine radiographs May 23, 2023 Findings: The conus medullaris ends normally. The alignment of the lumbar spine is anatomic. The vertebral body heights are well maintained. There is no aggressive bone marrow signal abnormality. Mild intervertebral disc height loss at L3-L4 through L5-S1 intraosseous hemangiomas noted within multiple vertebral bodies. L1-L2: No significant disc bulge or high-grade spinal canal or neuroforaminal stenosis. L2-L3: Small disc bulge. Mild facet arthropathy. No neural foraminal or spinal canal stenosis. L3-L4: Small disc bulge with tiny central annular fissure. Mild facet arthropathy. Mild bilateral neural foraminal stenosis. Mild spinal canal stenosis. L4-L5: Small disc bulge with tiny central annular fissure. Superimposed left central disc extrusion measures approximately 5 mm in AP dimension by 12 mm in transverse dimension and courses inferiorly along the posterior aspect of L5 for a length of approximately 11 mm. There is impingement of the left L5 nerve between this disc protrusion in the anterior margin of the left L4 facet joint prior to its entry into the neural foramen. Mild bilateral facet arthropathy. Mild bilateral neural foraminal stenosis. L5-S1: Small disc bulge. Mild facet arthropathy. No neural foraminal or spinal canal stenosis. Visualized paravertebral soft tissues appear within normal limits. IMPRESSION: Degenerative changes of the lumbar spine as detailed. ELECTRONICALLY SIGNED BY: Steve Can, DO Normal Not Available Reminderson 07-01-2023 Reminders - From: Lou Bartlett MA To: N - Clinical; Sent: 07/01/2023 09:51:32 EST Show up: 05/12/2026 09:51:00 EDT Subject: Colonoscopy recall 3 years Reminder/Recall Last colonoscopy: 06/12/2023 Repeat: 3 years Reason: Tubular Adenoma Normal [facility] Postoperative Documentson Postoperative Documents [id number]# 1.00TIFF Normal [facility] IntraOperative Documentson 1 08-17-2022 IntraOperative Documents [id number]#1 .00TIFF Normal [facility] Consenton 06-13-2023 Consent [id number]# 1.00TIFF Normal [facility] Discharge Instructionson Discharge Instructions [id number]# 1.00TIFF Normal [facility] Main OR Intraoperative Recor don 06-13-2023 Main OR Intraoperative Record IntraOp Document Type FT Summary Primary Physician: Joe Limon MD Finalized Date/Time: 06/13/23 14:51:07 Pt. Name: MIRABESSYEVERETTE/Sex: 1960 Male Med Rec #: [id number] Physician: Joe Limon MD Financial #: [id number] Pt. Type: O Room/Bed: Endo 10/09 Admit/Disch: 06/12/23 14:00:52 - 06/12/23 15:59:00 Institution: Case Times FT Entry 1 Patient Times In Room 06/12/23 15:02:00 Out Room 06/12/23 15:27:00 Procedure Times Start 06/12/23 15:08:00 Stop 06/12/23 15:25:00 Anesthesia Times Start 06/12/23 15:02:00 Stop 06/12/23 15:27:00 Time at [facility] 06/12/23 15:20:00 Last Modified By: Yola Schreiber RN 06/12/23 15:27:22 General Comments: 06/13/23 chart opened for charge review per Cecelia Santamaria RN. [place] Case Attendance FT Entry 1 Entry 2 Entry 3 Case Attendee Dbe Lopez CRNA, RN, Minerva Long Role Performed [employer] - Primary Staff - Other Time In 06/12/23 15:02:00 06/12/23 15:02:00 06/12/23 15:02:00 Time Out 06/12/23 15:27:00 06/12/23 15:27:00 06/12/23 15:27:00 Procedure COLONOSCOPY(.) COLONOSCOPY(.) COLONOSCOPY(.) Comments Last Modified By: Abdoul PHILLIP, Yola Schreiber RN, Yola Schreiber RN, Yola You 06/12/23 15:27:31 06/12/23 15:27:31 06/12/23 15:27:31 Entry 4 Entry 5 Case Attendee Kaitlyn Salas MD, John E. Role Performed Scrub - Primary Surgeon - Primary Time In 06/12/23 15:02:00 06/12/23 15:02:00 Time Out 06/12/23 15:27:00 06/12/23 15:27:00 Procedure COLONOSCOPY(.) COLONOSCOPY(.) Comments Last Modified By: Abdoul PHILLIP, Yola Schreiber RN, Yola You 06/12/23 15:27:31 06/12/23 15:27:31 Perioperative Protocols FT Pre-Care Text: Implements protective measures prior to operative or invasive procedure, confirms identity before the operative or invasive procedure, verifies operative procedure, surgical site, and laterality Entry 1 Procedure(s) COLONOSCOPY(.) Patient Identity Birthday, ID Band Verified (select at Check, Patient least 2): Participation Consents / H and P Anesthesia Consent, Operative Site N/A Verified HandP, Surgery/Procedure Marking Verified Consent Surgical Site No Laterality Verified n/a Verified Procedure Verified Yes Correct Patient Yes Position Verified Availability Equipment, Medication Prep Dry n/a Verified (If Applicable) PreOp Antibiotic No Time Out Deb Lopez CRNA, Given Participants Abdoul PHILLIP, Aldo Hood Kirstyn K, Kaitlyn Salas Mourany MD, John E. Time Out Complete 06/12/23 15:05:00 Outcomes Met? Yes Last Modified By: Yola Schreiber RN 06/12/23 15:05:21 Post-Care Text: The patient is free from signs and symptoms of injury caused by extraneous objects Allergy Information FT Pre-Care Text: Verifies allergies Entry 1 Allergies Reviewed? Yes Allergies Reviewed Self/Patient With Outcomes Met? Yes Last Modified By: Yola Schreiber RN 06/12/23 15:05:28 Post-Care Text: The patient received appropriate medication(s) safely administered during the perioperative period Surgical Procedures FT Entry 1 Procedure Description Procedure COLONOSCOPY Modifiers . Surgeon Description Colonoscopy with sigmoid colon polypectomy with hot snare. descending colon polypectomies x2. Primary Procedure Yes Primary Surgeon Joe Limon MD Start 06/12/23 15:08:00 Stop 06/12/23 15:25:00 Anesthesia Type General Surgical Service General Wound Class 2 - Clean-Contaminated Last Modified By: Yola Schreiber RN 06/12/23 15:27:36 General Case Data FT Pre-Care Text: Classifies surgical wound, implements aseptic technique, initiates traffic control Entry 1 Case Information OR ENDO 1 FT Case Level Level 2 Wound Class 2 - Clean-Contaminated Specialty General ASA Class 2 Preop Diagnosis Positive cologuard Postop Same As Preop No Postop Diagnosis Sigmoid colon polyp, Outcomes Met? Yes descending colon polyps Last Modified By: Yola Schreiber RN 06/12/23 15:20:53 Post-Care Text: The patient is free from signs and symptoms of infection Skin Assessment (Pre Procedure) FT Pre-Care Text: Implements protective measures to prevent skin/ tissue injury due to thermal or mechanical sources Evaluates for signs and symptoms of physical injury to skin and tissue Entry 1 Skin Integrity Intact, Lucan, Warm, and Skin Abnormality No Dry Outcomes Met? Yes Last Modified By: Yola Schreiber RN 06/12/23 15:06:04 Post-Care Text: The patient is free from signs and symptoms of injury caused by extraneous objects Patient Positioning FT Pre-Care Text: Identifies physical alterations that require additional precautions for procedure-specific positioning, verifies presence of prosthetics or corrective devices, positions the patient, evaluates the patient for signs and symptoms of injury as a result of positioning Entry 1 Procedure COLONOSCOPY(.) Body Position Lateral, (more content not included)... Normal [facility] Consent for Treatmenton Consent for Treatment [id number]#1 .00TIFF Normal [facility] Discharge Instructionson Discharge Instructions EVERETTE GEORGE :1960 Visit Date:06/12/2023 Inpatient Discharge Instructions Your Care Team Admitting Physician - Joe Limon MD Referring Physician - Joe Limon MD Reason for Your Visit POSITIVE COLAGAURD Your Diagnosis Positive colorectal cancer screening using Cologuard test Tests Performed Pathology Tissue Exam -- Results Pending -- Please visit your patient portal for your results or contact your primary care physician. This Is Your Medications List allopurinol (allopurinol 100 mg Tab) aspirin (aspirin 81 mg Oral EC Tab) atorvastatin (atorvastatin 40 mg Tab) carvedilol (carvedilol 6.25 mg Tab) cephalexin (Keflex 500 mg Cap) cholecalciferol (Vitamin D3) clopidogrel (Plavix 75 mg Tab) clopidogrel (Plavix 75 mg Tab) diclofenac topical (Voltaren Gel 1% Gel) gabapentin (gabapentin 300 mg Cap) indomethacin (indomethacin 25 mg Cap) insulin aspart (NovoLog) insulin detemir (Levemir FlexTouch 100 units/mL subcutaneous solution) isosorbide dinitrate lisinopril (lisinopril 20 mg Tab) metformin (metformin 1000 mg oral tablet) multivitamin with minerals (Multivitamins and Minerals) nitroglycerin (nitroglycerin 0.4 mg SubL [place]) potassium bicarbonate (K-Effervescent 25 mEq oral tablet, effervescent) semaglutide (Ozempic (1 mg dose) 4 mg/3 mL subcutaneous solution) tamsulosin (tamsulosin 0.4 mg Cap) temazepam (temazepam 15 mg Cap) Procedure History Cystoscopic removal of ureteric stent (02/26/2022), Cystoscopic removal of ureteric stent (02/14/2022), Stone retrieval basket (02/14/2022), Cardiac catheterization, left heart (01/11/2022), Cystoscopy (11/20/2021), Cystourethroscopy with dilation of urethral stricture, Placement of stent in cardiac conduit, Prosthetic arthroplasty of hip, Total replacement of hip. Discharge Vitals Temperature (Temporal Artery) 36.9 ?C Heart Rate (Monitored) 75 Respiratory Rate 10 Blood Pressure 97/85 Height 185 cm Weight 158 kg BMI 46.17 What to do next Instructions From Your Doctor Event Name Event Result Pharmacy Information Other: [place], [place] Previously Scheduled Follow-Up Appointments Friday 10:30 AM EST With: DOMINGUEZ ACEVEDO, Estuardo Peralta Where: [facility] Comment on above: Result Comment: Elec tronically Signed By: Hermes PHILLIP, Vanessa\.br\Date and Time Signed: 06/12/23 15:40 EDT Inpatient Patient Summaryon 06-12-2023 Inpatient Patient Summary [place] [id number] [facility] Clinical Discharge Instructions PERSON INFORMATION Name: EVERETTE GEORGE [facility]IANS Admitting Physician: Joe Limon MD Attending Physician: Joe Limon MD PCP: SANJU BEARD DO Discharge Diagnosis: Comment: PATIENT EDUCATION INFORMATION Instructions: Colonoscopy, Adult, Care After Medication Leaflets: Follow up: Type Location Start Finish [facility] Office Visit [facility] 07/09/2023 10:30 AM 07/09/2023 10:45 AM Confirmed MEDICATION LIST Medications to Continue with No Changes Other Medications allopurinol (allopurinol 100 mg Tab) By Mouth 2 times a day. aspirin (aspirin 81 mg Oral EC Tab) By Mouth every day. atorvastatin (atorvastatin 40 mg Tab) By Mouth every day. carvedilol (carvedilol 6.25 mg Tab) 1 Tablets By Mouth 2 times a day. cephalexin (Keflex 500 mg Cap) 1 Capsules By Mouth every day. Refills: 0. cholecalciferol (Vitamin D3) clopidogrel (Plavix 75 mg Tab) 1 Tablets By Mouth every day. clopidogrel (Plavix 75 mg Tab) 1 Tablets By Mouth every day for 90 Days. Refills: 3. diclofenac topical (Voltaren Gel 1% Gel) Topical 4 times a day. gabapentin (gabapentin 300 mg Cap) 1 Capsules By Mouth 2 times a day. indomethacin (indomethacin 25 mg Cap) By Mouth 3 times a day. insulin aspart (NovoLog) Subcutaneous before meals. insulin detemir (Levemir FlexTouch 100 units/mL subcutaneous solution) Subcutaneous. isosorbide dinitrate By Mouth. lisinopril (lisinopril 20 mg Tab) By Mouth every day. metformin (metformin 1000 mg oral tablet) By Mouth 2 times a day. multivitamin with minerals (Multivitamins and Minerals) nitroglycerin (nitroglycerin 0.4 mg SubL [place]) Sublingual every 5 minutes. potassium bicarbonate (K-Effervescent 25 mEq oral tablet, effervescent) 1 Tablets By Mouth 2 times a day. Refills: 3. semaglutide (Ozempic (1 mg dose) 4 mg/3 mL subcutaneous solution) tamsulosin (tamsulosin 0.4 mg Cap) 1 Capsules By Mouth every day. Refills: 3. temazepam (temazepam 15 mg Cap) By Mouth once a day (at bedtime). Comment: Normal [facility] Main OR PACU I Recordon Main OR PACU I Record PACU Phase I Document Type FT Summary Primary Physician: Joe Limon MD Finalized Date/Time: 06/12/23 16:15:00 Pt. Name: EVERETTE GEORGE Madeline Hinds./Sex: 1960 Male Med Rec #: [id number] Physician: Joe Limon MD Financial #: [id number] Pt. Type: O Room/Bed: Endo 10/09 Admit/Disch: 06/12/23 14:00:52 - Institution: Case Times PACU I FT Pre-Care Text: Identifies barriers to communication and implements measures to provide psychological support Develops individualized plan of care, and ensures continuity of care Maintains patient's dignity and privacy, and maintains patient confidentiality Identifies and reports philosophical, cultural, and spiritual beliefs and values Identifies individual values and wishes concerning care Implements aseptic technique, and administers prescribed antibiotic therapy and immunizing agents as ordered Evaluates postoperative tissue perfusion Implements thermoregulation measures, and monitors body temperature Evaluates postoperative respiratory status Evaluates postoperative cardiac status Evaluates postoperative neurological status Assesses pain control, collaborated in initiating patient-controlled analgesia and implements alternative methods of pain control Verifies allergies, administers prescribed medications and solutions, evaluates response to medications Entry 1 In PACU I 06/12/23 15:29:00 Discharge from PACU 06/12/23 15:59:00 I Outcomes Met? Yes Last Modified By: Vanessa Mirza RN 06/12/23 16:14:43 Post-Care Text: The patient demonstrates knowledge of the expected response to the operative or invasive procedure The patient's care is consistent with the individualized perioperative plan of care The patient's right to privacy is maintained The patient's value system, lifestyle, ethnicity, and culture are considered, respected, and incorporated into the perioperative plan of care The patient participates in decisions affecting his or her perioperative plan of care The patient is free from signs and symptoms of infection The patient has wound/tissue perfusion consistent with or improved from baseline levels established preoperatively The patient is at or returning to normothermia at the conclusion of the immediate postoperative period The patient's respiratory function is consistent with or improved from baseline levels established preoperatively The patient's cardiovascular status is consistent with or improved from baseline levels established preoperatively The patient's cardiovascular status is consistent with or improved from baseline levels established preoperatively The patient demonstrates and/or reports adequate pain control throughout the perioperative period The patient received appropriate medication(s), safely administered during the perioperative period Acuity Level PACU I FT Entry 1 Start Time 06/12/23 15:29:00 Stop Time 06/12/23 15:59:00 Acuity Level Acuity Level I Last Modified By: Vanessa Mirza RN 06/12/23 16:14:56 Finalized By: Vanessa Mirza RN Document Signatures Signed By: Vanessa Mirza RN 06/12/23 16:15 Normal [facility] Main OR Preoperative Recordo n 06-12-2023 Main OR Preoperative Record Holding Area Document Type FT Summary Primary Physician: Joe Limon MD Finalized Date/Time: 06/12/23 14:16:20 Pt. Name: REYNALDORADHAEVERETTE D.O.B./Sex: 1960 Male Med Rec #: [id number] Physician: Joe Limon MD Financial #: [id number] Pt. Type: O Room/Bed: Endo 10/09 Admit/Disch: 06/12/23 14:00:52 - Institution: Case Times Holding FT Pre-Care Text: Verifies consent for planned procedure, identifies individual values and wishes concerning care, includes family members in perioperative teaching Secures patient's records' belongings, and valuables, maintains patient's dignity and privacy, and maintains patient confidentiality Entry 1 In Holding 06/12/23 14:05:00 Outcomes Met? Yes Last Modified By: Shira Ribeiro RN 06/12/23 14:15:17 Post-Care Text: The patient participates in decisions affecting his or her perioperative plan of care The patient's right to privacy is maintained Surgery Checklist FT Entry 1 Patient Birthday, ID Band Procedure History and Physical, Identification: Check, Patient Verification: Surgical Consent, With Participation Patient NPO after Midnight: Yes Date/Time: 06/12/23 10:00:00 Personal Items: Glasses, Jewelry Personal Items glasses, ring, right Comment: hip replacement, clothes, shoes Limitations: n/A Complaints of Pain: No Pain Comment: denies Operative Site n/a Marking: Marked By: n/a Availability Equipment Verified: Does Patient Smoke No Patient states Yes Comment - Adult - Genet postop adult Supervision supervision available Case Cancelled in No Holding Area see comments below for reason Last Modified By: Shira Ribeiro RN 06/12/23 14:16:17 General Comments: Pt finished colon prep at 1000, states stool is clear liquid yellow /,RN Finalized By: Shira Ribeiro RN Document Signatures Signed By: Shira Ribeiro RN 06/12/23 14:16 Normal [facility] Monitor Recordon 06-12-2023 Monitor Record [id number] 1.00TIFF Normal [facility] Monitor Record [id number]# 1.00TIFF Normal [facility] Operative Reporton Operative Report Patient: EVERETTE GEORGE Age: 63 years Sex: Male : 1960 Associated Diagnoses: None Author: Joe Limon MD Pre-Procedure Procedure Date 06/12/2023 16:13:00 . Procedure Type: Colonoscopy with removal of tumor(s), polyp(s), or other lesion(s) by snare technique. Procedure provider Performed by Joe Limon MD. Current history and physical Documented on chart. Cystoscopic removal of ureteric stent/Lt ([id number]) on 02/26/2022 at 61 Years. Cystoscopic removal of ureteric stent ([id number]) on 02/14/2022 at 61 Years. Stone retrieval basket ([id number]) on 02/14/2022 at 61 Years. Cardiac catheterization, left heart ([id number]) on 01/11/2022 at 61 Years. Cystoscopy laft stent placement ([id number]) on 11/20/2021 at 61 Years. Placement of stent in cardiac conduit ([id number]). Cystourethroscopy with dilation of urethral stricture ([id number]). Total replacement of hip (procedure) ([id number]). Insertion of hip prosthesis (procedure) ([id number]).. Past Medical History No active or resolved past medical history items have been selected or recorded.. Family History Heart disease Father Mother Diabetes mellitus type 2 Brother Sister . Procedure History Cystoscopic removal of ureteric stent/Lt ([id number]) on 02/26/2022 at 61 Years. Cystoscopic removal of ureteric stent ([id number]) on 02/14/2022 at 61 Years. Stone retrieval basket ([id number]) on 02/14/2022 at 61 Years. Cardiac catheterization, left heart ([id number]) on 01/11/2022 at 61 Years. Cystoscopy laft stent placement ([id number]) on 11/20/2021 at 61 Years. Placement of stent in cardiac conduit ([id number]). Cystourethroscopy with dilation of urethral stricture ([id number]). Total replacement of hip (procedure) ([id number]). Insertion of hip prosthesis (procedure) ([id number]).. Colorectal neoplasm risk assessment Average risk. Informed Consent After discussing the rationale, risks and benefits, and alternatives to this procedure, the patient provided signed consent for the procedure. Pre-procedure diagnosis: Diagnostic: Positive Cologuard. Medications (Selected) Inpatient Medications Ordered Lactated Ringers IV Deja 1000 mL 1,000 mL: 1,000 mL, IV, 100 mL/hr, Routine, Start date 06/12/23 14:08:00 EDT, 10 hour(s), Total volume (mL): 1,000 Sodium Chloride 0.9% IV Deja 1000 mL 1,000 mL: 1,000 mL, IV, 20 mL/hr, Routine, Start date 06/12/23 6:40:00 EDT, 50 hour(s), Total volume (mL): 1,000 Prescriptions Prescribed K-Effervescent 25 mEq oral tablet, effervescent: 25 mEq = 1 tab(s), Oral, BID, # 180 tab(s), Refills(s) 3, Pharmacy: [facility], 185, cm, 07/09/22 10:50:00 EST, Height/Length Dosing, 151.4, kg, 07/09/22 10:50:00 EST, Weight Dosing Keflex 500 mg Cap: 500 mg = 1 cap(s), Oral, Daily, # 30 cap(s), Refills(s) 0, Pharmacy: [id number], 185, cm, 12/03/21 10:02:00 EDT, Height/Length Dosing, 142, kg, 12/03/21 10:02:00 EDT, Weight Dosing Plavix 75 mg Tab: 75 mg = 1 tab(s), Oral, Daily, X 90 day(s), # 90 tab(s), Refills(s) 3, Pharmacy: [id number], 185, cm, 07/31/22 11:06:00 EST, Height/Length Dosing, 150, kg, 07/31/22 11:06:00 EST, Weight Dosing tamsulosin 0.4 mg Cap: 0.4 mg = 1 cap(s), Oral, Daily, # 90 cap(s), Refills(s) 3, Pharmacy: [facility], 185, cm, 07/09/22 10:50:00 EST, Height/Length Dosing, 151.4, kg, 07/09/22 10:50:00 EST, Weight Dosing Documented Medications Documented Levemir FlexTouch 100 units/mL subcutaneous solution: SubCutaneous, Refills(s) 0, Blood glucose Multivitamins and Minerals: Refill(s) 0, Prophylaxis NovoLog: SubCutaneous, TIDAC, Refills(s) 0, Blood glucose Ozempic (1 mg dose) 4 mg/3 mL subcutaneous solution: Refills(s) 0, Blood glucose Plavix 75 mg Tab: 75 mg = 1 tab(s), Oral, Daily, Blood Thinner Vitamin D3: Refills(s) 0, Prophylaxis Voltaren Gel 1% Gel: gm, Topical, QID, Pain allopurinol 100 mg Tab: mg tab(s), Oral, BID, Refills(s) 0, Gout pain aspirin 81 mg Oral EC Tab: mg tab(s), Oral, Daily, Refills(s) 0, Prophylaxis atorvastatin 40 mg Tab: mg tab(s), Oral, Daily, Refills(s) 0, High cholesterol carvedilol 6.25 mg Tab: 6.25 mg = 1 tab(s), Oral, BID, High blood pressure gabapentin 300 mg Cap: 300 mg = 1 cap(s), Oral, BID, Refills(s) 0, Neuropathy indomethacin 25 mg Cap: mg cap(s), Oral, TID, Inflammation isosorbide dinitrate: Oral, Refills(s) 0, High blood pressure lisinopril 20 mg Tab: mg tab(s), Oral, Daily, Refills(s) 0, High blood pressure metformin 1000 mg oral tablet: mg tab(s), Oral, BID, Refills(s) 0 nitroglycerin 0.4 mg SubL [place]: mg spray(s), SubLingual, q5min, Chest pain temazepam 15 mg Cap: mg cap(s), Oral, Once a day (at bedtime), Sleep ASA Classification: Class III. . Monitoring: See anesthesia record. . Procedure The procedure was performed in the hospital. See anesthesia record for sedation given during procedure. Rectal exam was performed and was normal. The patient was positioned s (more content not included)... Normal [facility] Comment on above: Result Comment: Elec tronically Signed By: Braxton ACEVEDO, Joe Boyer.br\Date and Time Signed: 06/12/23 16:15 EDT Outpatient Surgery Discharge Instructionon 06-12-2023 Outpatient Surgery Discharge Instruction [place] [id number] Patient Discharge Instructions PERSON INFORMATION Name: EVERETTE GEORGE Date of : 1960 Current Date: 06/12/2023 15:30:43 PHYSICIANS Admitting Physician: Braxton ACEVEDO, Joe Mcknight Discharge Diagnosis: EVERETTE GEORGE has been given the following list of follow-up instructions, prescriptions, and patient education materials: IF UNABLE TO CONTACT YOUR PHYSICIAN AND YOU FEEL IT IS AN EMERGENCY, GO TO THE NEAREST EMERGENCY ROOM OR CALL 911 I, EVERETTE GEORGE, have received the attached patient education materials/instruction s and have verbalized understanding: May we do a follow up call? Yes No I was present when discharge instructions were given Patient Signature Date Clinican/Nurse Signature Date Follow up: Type Location Start Finish State [facility] Office Visit [facility] ANNALEE Mercado 07/09/2023 10:30 AM 07/09/2023 10:45 AM Confirmed Pharmacy Information: Other: [facility] You may receive a survey from [employer] asking you to rate your care experience. Your feedback is important and will help us understand what we do well and how we can improve the quality of care we provide to you, your loved ones and our community. It?s an honor to serve you. Thank you for choosing [facility] HERE ARE THE MEDICATION CHANGES THAT OCCURRED DURING YOUR HOSPITAL STAY Medications to Continue with No Changes Other Medications allopurinol (allopurinol 100 mg Tab) By Mouth 2 times a day. aspirin (aspirin 81 mg Oral EC Tab) By Mouth every day. atorvastatin (atorvastatin 40 mg Tab) By Mouth every day. carvedilol (carvedilol 6.25 mg Tab) 1 Tablets By Mouth 2 times a day. cephalexin (Keflex 500 mg Cap) 1 Capsules By Mouth every day. Refills: 0. cholecalciferol (Vitamin D3) clopidogrel (Plavix 75 mg Tab) 1 Tablets By Mouth every day. clopidogrel (Plavix 75 mg Tab) 1 Tablets By Mouth every day for 90 Days. Refills: 3. diclofenac topical (Voltaren Gel 1% Gel) Topical 4 times a day. gabapentin (gabapentin 300 mg Cap) 1 Capsules By Mouth 2 times a day. indomethacin (indomethacin 25 mg Cap) By Mouth 3 times a day. insulin aspart (NovoLog) Subcutaneous before meals. insulin detemir (Levemir FlexTouch 100 units/mL subcutaneous solution) Subcutaneous. isosorbide dinitrate By Mouth. lisinopril (lisinopril 20 mg Tab) By Mouth every day. metformin (metformin 1000 mg oral tablet) By Mouth 2 times a day. multivitamin with minerals (Multivitamins and Minerals) nitroglycerin (nitroglycerin 0.4 mg SubL [place]) Sublingual every 5 minutes. potassium bicarbonate (K-Effervescent 25 mEq oral tablet, effervescent) 1 Tablets By Mouth 2 times a day. Refills: 3. semaglutide (Ozempic (1 mg dose) 4 mg/3 mL subcutaneous solution) tamsulosin (tamsulosin 0.4 mg Cap) 1 Capsules By Mouth every day. Refills: 3. temazepam (temazepam 15 mg Cap) By Mouth once a day (at bedtime). PATIENT EDUCATION INFORMATION Instructions: Colonoscopy, Adult, Care After The following information offers guidance on how to care for yourself after your procedure. Your health care provider may also give you more specific instructions. If you have problems or questions, contact your health care provider. What can I expect after the procedure? After the procedure, it is common to have: ? A small amount of blood in your stool for 24 hours after the procedure. ? Some gas. ? Mild cramping or bloating of your abdomen. Follow these instructions at home: Eating and drinking ? Drink enough fluid to keep your urine pale yellow. ? Follow instructions from your health care provider about eating or drinking restrictions. ? Resume your normal diet as told by your health care provider. Avoid heavy or fried foods that are hard to digest. Activity ? Rest as told by your health care provider. ? Avoid sitting for a long time without moving. Get up to take short walks every 1?2 hours. This is important to improve blood flow and breathing. Ask for help if you feel weak or unsteady. ? Return to your normal activities as told by your health care provider. Ask your health care provider what activities are safe for you. Managing cramping and bloating ? Try walking around when you have cramps or feel bloated. ? If directed, apply heat to your abdomen as told by your health care provider. Use the heat source that your health care provider recommends, such as a moist heat pack or a heating pad. ? Place a towel between your skin and the heat source. (more content not included)... Normal [facility] Patient Education - Texton 1 08-12-2022 Patient Education - Text Radiology Colonoscopy, Adult, Care After The following information offers guidance on how to care for yourself after your procedure. Your health care provider may also give you more specific instructions. If you have problems or questions, contact your health care provider. What can I expect after the procedure? After the procedure, it is common to have: ? A small amount of blood in your stool for 24 hours after the procedure. ? Some gas. ? Mild cramping or bloating of your abdomen. Follow these instructions at home: Eating and drinking ? Drink enough fluid to keep your urine pale yellow. ? Follow instructions from your health care provider about eating or drinking restrictions. ? Resume your normal diet as told by your health care provider. Avoid heavy or fried foods that are hard to digest. Activity ? Rest as told by your health care provider. ? Avoid sitting for a long time without moving. Get up to take short walks every 1?2 hours. This is important to improve blood flow and breathing. Ask for help if you feel weak or unsteady. ? Return to your normal activities as told by your health care provider. Ask your health care provider what activities are safe for you. Managing cramping and bloating ? Try walking around when you have cramps or feel bloated. ? If directed, apply heat to your abdomen as told by your health care provider. Use the heat source that your health care provider recommends, such as a moist heat pack or a heating pad. ? Place a towel between your skin and the heat source. ? Leave the heat on for 20?30 minutes. ? Remove the heat if your skin turns bright red. This is especially important if you are unable to feel pain, heat, or cold. You have a greater risk of getting burned. General instructions ? If you were given a sedative during the procedure, it can affect you for several hours. Do not drive or operate machinery until your health care provider says that it is safe. ? For the first 24 hours after the procedure: ? Do not sign important documents. ? Do not drink alcohol. ? Do your regular daily activities at a slower pace than normal. ? Eat soft foods that are easy to digest. ? Take [id number]-qsmwrnx and prescription medicines only as told by your health care provider. ? Keep all follow-up visits. This is important. Contact a health care provider if: ? You have blood in your stool 2?3 days after the procedure. Get help right away if: ? You have more than a small spotting of blood in your stool. ? You have large blood clots in your stool. ? You have swelling of your abdomen. ? You have nausea or vomiting. ? You have a fever. ? You have increasing pain in your abdomen that is not relieved with medicine. These symptoms may be an emergency. Get help right away. Call 911. ? Do not wait to see if the symptoms will go away. ? Do not drive yourself to the hospital. Summary ? After the procedure, it is common to have a small amount of blood in your stool. You may also have mild cramping and bloating of your abdomen. ? If you were given a sedative during the procedure, it can affect you for several hours. Do not drive or operate machinery until your health care provider says that it is safe. ? Get help right away if you have a lot of blood in your stool, nausea or vomiting, a fever, or increased pain in your abdomen. This information is not intended to replace advice given to you by your health care provider. Make sure you discuss any questions you have with your health care provider. Document Revised: 03/20/2022 Document Reviewed: 03/20/2022 [employer] Patient Education ? 2022 [employer]. [facility] Progress Note-Physicianon Progress Note-Physician Patient: EVERETTE GEORGE Age: 63 years Sex: Male : 1960 Associated Diagnoses: None Author: Deb Lopez CRNA Preoperative Information Anesthesia Preop Info: Time patient last ate or drank 06/12/2023 09:00:00. Anesthesia history: Patient history: No prior anesthetic problems. Informed consent: Signed by patient. Re-evaluation prior to induction: Initial evaluation reviewed: No significant change. Review of Systems Respiratory: Negative except as documented in history of present illness. Cardiovascular: Negative except as documented in history of present illness. Health Status Allergies: Allergic Reactions (Selected) No Known Allergies, Allergies (1) Active Reaction No Known Allergies None Documented Current medications: (Selected) Inpatient Medications Ordered Lactated Ringers IV Deja 1000 mL 1,000 mL: 1,000 mL, IV, 100 mL/hr, Routine, Start date 06/12/23 14:08:00 EDT, 10 hour(s), Total volume (mL): 1,000 Sodium Chloride 0.9% IV Deja 1000 mL 1,000 mL: 1,000 mL, IV, 20 mL/hr, Routine, Start date 06/12/23 6:40:00 EDT, 50 hour(s), Total volume (mL): 1,000 Prescriptions Prescribed K-Effervescent 25 mEq oral tablet, effervescent: 25 mEq = 1 tab(s), Oral, BID, # 180 tab(s), Refills(s) 3, Pharmacy: [facility], 185, cm, 07/09/22 10:50:00 EST, Height/Length Dosing, 151.4, kg, 07/09/22 10:50:00 EST, Weight Dosing Keflex 500 mg Cap: 500 mg = 1 cap(s), Oral, Daily, # 30 cap(s), Refills(s) 0, Pharmacy: [id number], 185, cm, 12/03/21 10:02:00 EDT, Height/Length Dosing, 142, kg, 12/03/21 10:02:00 EDT, Weight Dosing Plavix 75 mg Tab: 75 mg = 1 tab(s), Oral, Daily, X 90 day(s), # 90 tab(s), Refills(s) 3, Pharmacy: [id number], 185, cm, 07/31/22 11:06:00 EST, Height/Length Dosing, 150, kg, 07/31/22 11:06:00 EST, Weight Dosing tamsulosin 0.4 mg Cap: 0.4 mg = 1 cap(s), Oral, Daily, # 90 cap(s), Refills(s) 3, Pharmacy: [facility], 185, cm, 07/09/22 10:50:00 EST, Height/Length Dosing, 151.4, kg, 07/09/22 10:50:00 EST, Weight Dosing Documented Medications Documented Levemir FlexTouch 100 units/mL subcutaneous solution: SubCutaneous, Refills(s) 0, Blood glucose Multivitamins and Minerals: Refill(s) 0, Prophylaxis NovoLog: SubCutaneous, TIDAC, Refills(s) 0, Blood glucose Ozempic (1 mg dose) 4 mg/3 mL subcutaneous solution: Refills(s) 0, Blood glucose Plavix 75 mg Tab: 75 mg = 1 tab(s), Oral, Daily, Blood Thinner Vitamin D3: Refills(s) 0, Prophylaxis Voltaren Gel 1% Gel: gm, Topical, QID, Pain allopurinol 100 mg Tab: mg tab(s), Oral, BID, Refills(s) 0, Gout pain aspirin 81 mg Oral EC Tab: mg tab(s), Oral, Daily, Refills(s) 0, Prophylaxis atorvastatin 40 mg Tab: mg tab(s), Oral, Daily, Refills(s) 0, High cholesterol carvedilol 6.25 mg Tab: 6.25 mg = 1 tab(s), Oral, BID, High blood pressure gabapentin 300 mg Cap: 300 mg = 1 cap(s), Oral, BID, Refills(s) 0, Neuropathy indomethacin 25 mg Cap: mg cap(s), Oral, TID, Inflammation isosorbide dinitrate: Oral, Refills(s) 0, High blood pressure lisinopril 20 mg Tab: mg tab(s), Oral, Daily, Refills(s) 0, High blood pressure metformin 1000 mg oral tablet: mg tab(s), Oral, BID, Refills(s) 0 nitroglycerin 0.4 mg SubL [place]: mg spray(s), SubLingual, q5min, Chest pain temazepam 15 mg Cap: mg cap(s), Oral, Once a day (at bedtime), Sleep, Home Medications (22) Active allopurinol 100 mg Tab , Oral, BID aspirin 81 mg Oral EC Tab , Oral, Daily atorvastatin 40 mg Tab , Oral, Daily carvedilol 6.25 mg Tab 6.25 mg = 1 tab(s), Oral, BID gabapentin 300 mg Cap 300 mg = 1 cap(s), Oral, BID indomethacin 25 mg Cap , Oral, TID isosorbide dinitrate , Oral K-Effervescent 25 mEq oral tablet, effervescent 25 mEq = 1 tab(s), Oral, BID Keflex 500 mg Cap 500 mg = 1 cap(s), Oral, Daily Levemir FlexTouch 100 units/mL subcutaneous solution , SubCutaneous lisinopril 20 mg Tab , Oral, Daily metformin 1000 mg oral tablet , Oral, BID Multivitamins and Minerals nitroglycerin 0.4 mg SubL [place] , SubLingual, q5min NovoLog , SubCutaneous, TIDAC Ozempic (1 mg dose) 4 mg/3 mL subcutaneous solution Plavix 75 mg Tab 75 mg = 1 tab(s), Oral, Daily Plavix 75 mg Tab 75 mg = 1 tab(s), Oral, Daily tamsulosin 0.4 mg Cap 0.4 mg = 1 cap(s), Oral, Daily temazepam 15 mg Cap , Oral, Once a day (at bedtime) Vitamin D3 Voltaren Gel 1% Gel , Topical, QID , Medications (2) Active Scheduled: (0) Continuous: (2) Lactated Ringers 1,000 mL 1,000 mL, IV, 100 mL/hr Sodium Chloride 0.9% 1,000 mL 1,000 mL, IV, 20 mL/hr PRN: (0) Problem list: All Problems Aspirin long-term use / SNOMED CT 7087854617 / Confirmed BMI 45.0-49.9, adult / SNOMED CT 4750028425 / Confirmed BPH (benign prostatic hyperplasia) / SNOMED CT 026489284 / Confirmed Diabetes / SNOMED CT 033085563 / Confirmed HTN (hypertension) / SNOMED CT 9240649547 / Confirmed Hyperlipidemia / SNOMED CT 96337399 / Confirm (more content not included)... Normal [facility] Comment on above: Result Comment: Elec tronically Signed By: Deb Lopez CRNA\.br\Date and Time Signed: 06/12/23 16:11 EDT Progress Note-Physician Patient: EVERETTE GEORGE Age: 63 years Sex: Male : 1960 Associated Diagnoses: None Author: Deb Lopez CRNA Postoperative Information Postoperative disposition: Postoperative disposition: Home. Optimetrix number: Optimetrix number [id number]. Anesthetic utilized: General. Health Status Allergies: Allergic Reactions (Selected) No Known Allergies Physical Examination Vital Signs 06/12/2023 15:40 EDT Heart Rate Monitored 75 bpm Respiratory Rate Monitored 12 br/min Systolic Blood Pressure 133 mmHg Diastolic Blood Pressure 57 mmHg LOW Blood Pressure Location Left arm Mean Arterial Pressure, Cuff 82 mmHg SpO2 98 % 06/12/2023 15:35 EDT Heart Rate Monitored 75 bpm Respiratory Rate Monitored 10 br/min Systolic Blood Pressure 97 mmHg Diastolic Blood Pressure 85 mmHg Blood Pressure Location Left arm Mean Arterial Pressure, Cuff 89 mmHg SpO2 97 % 06/12/2023 15:29 EDT Temperature Temporal Artery 36.9 DegC Heart Rate Monitored 83 bpm Respiratory Rate Monitored 22 br/min Systolic Blood Pressure 128 mmHg Diastolic Blood Pressure 71 mmHg Blood Pressure Location Left arm Mean Arterial Pressure, Cuff 90 mmHg SpO2 96 % 06/12/2023 15:25 EDT Heart Rate Monitored 81 bpm bpm Respiratory Rate 17 br/min br/min SpO2 98 % % 06/12/2023 15:24 EDT Systolic Blood Pressure 114 mmHg mmHg Diastolic Blood Pressure 77 mmHg mmHg 06/12/2023 15:21 EDT Systolic Blood Pressure 111 mmHg mmHg Diastolic Blood Pressure 69 mmHg mmHg 06/12/2023 15:20 EDT Heart Rate Monitored 84 bpm bpm Respiratory Rate 17 br/min br/min SpO2 98 % % 06/12/2023 15:18 EDT Systolic Blood Pressure 148 mmHg mmHg Diastolic Blood Pressure 93 mmHg mmHg 06/12/2023 15:15 EDT Heart Rate Monitored 77 bpm bpm Respiratory Rate 18 br/min br/min Systolic Blood Pressure 103 mmHg mmHg Diastolic Blood Pressure 94 mmHg mmHg SpO2 99 % % 06/12/2023 15:12 EDT Systolic Blood Pressure 97 mmHg mmHg Diastolic Blood Pressure 68 mmHg mmHg 06/12/2023 15:10 EDT Heart Rate Monitored 79 bpm bpm Respiratory Rate 17 br/min br/min SpO2 99 % % 06/12/2023 15:09 EDT Systolic Blood Pressure 117 mmHg mmHg Diastolic Blood Pressure 67 mmHg mmHg 06/12/2023 15:06 EDT Systolic Blood Pressure 137 mmHg mmHg Diastolic Blood Pressure 73 mmHg mmHg 06/12/2023 15:05 EDT Heart Rate Monitored 75 bpm bpm Respiratory Rate 14 br/min br/min SpO2 100 % % 06/12/2023 15:04 EDT Systolic Blood Pressure 174 mmHg mmHg Diastolic Blood Pressure 96 mmHg mmHg 06/12/2023 15:02 EDT Systolic Blood Pressure 146 mmHg mmHg Diastolic Blood Pressure 125 mmHg mmHg 06/12/2023 14:22 EDT Systolic Blood Pressure 154 mmHg HI Diastolic Blood Pressure 85 mmHg Blood Pressure Location Left arm 06/12/2023 14:20 EDT Temperature Temporal Artery 36.3 DegC Heart Rate Monitored 75 bpm Respiratory Rate Monitored 13 br/min Systolic Blood Pressure 185 mmHg HI Diastolic Blood Pressure 101 mmHg HI Blood Pressure Location Left arm SpO2 97 % Pain Assessment: Controlled, Pain Assessment 06/12/2023 15:29 EDT Numeric Pain Scale 0 = No pain . General: Awake, Alert, Appropriate. Respiratory: Adequate air exchange, Non-labored. Cardiovascular: Stable, Normal peripheral perfusion. Neurological: Neurologic exam at baseline. No changes.. Assessment Anesthetic outcome No anesthetic complications noted. No nausea/vomiting. Review / Management Condition: Stable. Plan Transfer/Discharge: Transfer/Discharge Discharge when meets criteria ( From PACU to Ambulatory Surgery Unit, and To home ). Normal [facility] Comment on above: Result Comment: Elec tronically Signed By: Deb Lopez CRNA.pop\Date and Time Signed: 06/12/23 16:10 EDT Coding Summaryon 05-23-2023 Coding Summary [employer] 64 FuyprnasNIj5tWd+PGhlY WQ+LB6LXWYoC56daZLtlE 8yV1AXJOwGSyieHABLDYu FWiWeykNzSX3icYRiUVWq IC8+SK0pJOIiTxzmrTNma 1Y9oXT4D05ylk1xTWggwZ G1UWPpYpQpljhut4ankYo 6IDcuNmluOyBt SJDedU77REB4dX00Tw32q GTtkYUpa3hgcWq6CoShEJ FoPBV7bKrgEKrpt4JjWKO hC21xfNDum3E1 RRRzaRbnzFZwGsFawQL9b M2hVAbfbbfsz2dkacryVz k3yt34kMMkd8Q7cMU5S7O kxaS2AVDmoGGp TbhrjGNKwU6ujgcmk7lts nluUwGwYTGvLKu6MQl6ZH WxsUucRrLsCF13BMZ7PQY hixVmT9JaIKEq eWkcCkS3k0K0Mm6GB9PMQ jqqR3MHBSFKKYecpZG+PC 36hv78A8BlJrfhKzu7SZH oYAO3cWU4uY9d KQVwYWbid1E0xGK6R5Qaz kZpol7py8kdGYTaTUnzY4 8tpEVpg5C1URDizYT3JCA evUgjSiBikB76 Oyc+KBDuvKdhu0WjKrbnm 4hbc4ksaUo4WfnbSLSsdn RenGevNEA9d6LfQy1dIYW iqKI7uIP3dN7f XjPbZoG8LMzzB429BuFkf EFbWoiaZ44cM5ObpZW+PH XyPbw3RHYxtLsdRY7lV3N hZGRpbmctbGVm mAfkXV0mFQWzfualRCIge G8yDTIgN3a6JgBfYoQ3BL qjO6QmIJBvyctpFh04qI7 hHhFtCgJ0OJkc L7QiweY2DJZbdMWuFDurL PS1T66ya1F2MNUeVUSkZW N0kVT1rM2ubOjjgmftlLG mdDsgdmVydGlj JJgzOBkrM123XZSqxFteV kNvZGluZyBEYXRlOiAgMT AvMTMvMjAyMzwvdGQ+PHR pSTL8dErnNAHa rVDvKYbnTr8hzEpqsRfqW G7tRELuoynaJCKawA6xSY MljPOkaBicBP8kRKMdwqt zw181XcDxWXL8 OHIyeQArR1VpzC3nXhWxX UYxHCAsD5NixJHnTGinD1 16TOetHxM3AQLpqnRrG4L sLWFsaWduOiB0 b4P7Fz1Fe0LunlzqM2Lcd MHvCxRyMgqdQBw0H3BoVb wvdHI+NV65NJNoKS92AVo 5GGG8zWrqKMvc LPXuM1LcjQ6pWdAwBBEkI GRkOyc+PHRhYmxlIHdpZH RoPScxMDAlJyBzdHlsZT0 iKt6aDTRnKGYr lMujsELcCuAsx6gnFZDrA KviPS3hpFcpZ4OtoCB3RO Uah6m0Es27A29tX2UodZB +TZNgsBF0wBX8 gQ3jMmYdTiT9OFscF663Q dJpeFJbDewwk5rcw0vvmY h8IqB3DZTqrnMvkEldWRT 7d7CoPi75L65q IHdpZHRoPSIxNSUiIHZhb Dvauy7cbA9dPw6+PGNvbC O7rBU4pB5vSqXnZxH2UWk dE945XsAofGMk Djcry1kua5fzgKl1EwSsW VZjnaEthHyiDSA5r9XjDw 43O9ZyqVqky9QsQmf9tv1 2wAHku2L3lNR0 C8TtNKCsqbznmAKsyAxiM Q3lUTFfgagsTVNdyN4wIF WpG0x8RhHrIqM6YEnrL2J jfqL8HFRiqYIs ZLArpGFNkH6qgnazq2zok cjzJbKwVQPySMt4FAg7BU KkbUnpLaQzPHR5ObY8OLJ 8aHElgR2lkNlc qsbnaU7lVpc+YXW2hOXol WFGCN7jVacgdAM+PHRkIH U1cMqmXDscHLLqvS1uAYH yW6m7CbIzRcN5 IPysV6CjjmR8VIRfsCAwM RDlnWEXtB2bendny1fgfc jvAsLlKFBfJEd8WDj3GSB saWduOiBsZWZ0 SoC0HQF2tYBuyM6jiXvyf irodC2yRbu+QmlydGggRG U9THr0Z0UzCdp1DDZgvAn qMC7vmZZrTNvj Ud2wwToitCvnLM4tBIPyc mtiw213XbZvn3atJKHlrL QgYUxhEFO4Z72px1U8PQE wOHThCMC5qTH0 iG4lrAhufwtyfHFjfGavh bSchCpbEDoiRBtaH078CR HgmGscAnLeORb6R6UsXme 3YWGaoPwbRA1p yGEtSZxsVb1akXutnZgjI P1bYFQpxvbjx399IxRax3 cfMFFbcYGsLLtyXFL7J84 uh6G7OMRpGASw AUN7pBC7nP3cvOrxbdyqm GVmdDsgdmVydGljYWwtYW jaH749AXZbfCurDoDstHo 8S6AlBhe0ZCEk iZolZD3gjYPvMTxhIn1mk CxpqWsqIR8eQBJtgxvts8 94EcXxw2zlKUDipOXmDYb xLVG0A18jc6Z0 YUVeJSApJXF4mKE5qM1ed GlnbjogbGVmdDsgdmVydG fqZNbkIXlgR709TTGcjVb nPlBhdGllbnQg ACrhPYh6A3IxBbfcnON+P S53OGFkZC57wFSxbCWhc4 bxdZd3CzFyOQYdBVF2wZv cOLmva1FtODVb R25ztXMpv9J6AYKvvXwqg MVcWiPesQO0rX6rDVdrws dzk2aebbpnHoilr7aerk2 6oB17H72oSVhb ZHRoPSIzMCUiIHZhbGlnb v5mqM9xIy5+HSEatHC2pM T6uO1pMXOeGqA3NMfdI53 9InRvcCIvPjxj e0wko1ldyVz1NvU3SEOdq cPvpNsdLVS4f0GgOz69Z7 9sIHdpZHRoPSIyMCUiIHZ coGvkrd8mbM4c Ii8+MNGqePW7mQS1nF6vO dNwRiM1KVaoU749TnZcaR ZlUbkiD49jA6LxwVS+PHR eFpl0YNBrlYlz YI9ecABpLYkmJe1zYBA3G eBiQyWvHYzyY2RzQWSacb dqykvocJG7PYNbSMYpyM4 2Zs2eeDgbDPJj nTWHnA4wnhcmq3xrefsvF gNlIYRaBJo8UKi2TMXzrJ fgIyAnQAY3LmS9FZV8dPF ksT1eyQcdegou gG9pF2JtSAValzeuVj99k E4pBrMnDwW6UCpgZib+U1 GERY1BWspLSdpbQ2yZWDt TKGEOLI30GQ94 qLKdi9K8hHI3D8NdYPWse yphhicwpXG5OSJgIXPbvJ 92zKBhRLrzXh6mh8O8e11 8BCUqZWXzzP94 Rt6cwNrkABZgfUKTiT4am xtjq4kequxyTtMlBKIrLW b6SLo7RMVfqMpdYiToSIF 0ChA9IKL3wYWm gS3dpVhknhxpyV6mTfq+M UytLBAwARl6YXvzrQS+PH TkIID2hSbeFRhgNTPicW1 oOKYlP5p4LcJe AzQ7ONguY4VzJMLkrbjgR k28fO2bGhIvSlB9KOpdW7 IlgsZ3MJUztSDuTExdUYV 0P14pc6O9VBRc FCXnDBV1nIF3uK7buGzwf jogbGVmdDsgdmVydGljYW raXNbbI799VGUrnKqmZsT mQMicDQBdJY35 VP70jXJtv8E4oVT9I2PqE MStewnxefwvjVP5OKWwRG PlfR74rETcPAubXi5st3Q 7w091VELeRVLg fR99An5paJwnCLBfqAOVp C8bvtoni4ujkprjXyRgMA RuJWl0VOu3JNWgoJemOuY bCRX3KpJ0WGC0 eAHlkO2ilCxnzbzmiB2eA yc+TUFMRTwvdGQ+PHRkIH D4vOnqFSfsWHKniX9wDQQ nM7n8JoAaPiH3 TUiaQ0XxGBGjbzhiEg01s W4rKyUuIlJ2RDpmF7Qucm Y4GKPbwTCfBKbdUWL8I69 sd5B8KNTvYADa WNW1jCL0mJ8svLktqjsda GVmdDsgdmVydGljYWwtYW ypQ722SJTbcFxlPmVkBXT tMQ5xjXxsiAH+ UN20lw66S0JxQgbwOqc0V PLtQVH1gBV1oZ5dBLRkBO huu8M7zIH0X1XvzkYnel6 vy5qePNXuIExu N29ryRMrt7Z6JFBmwZN7F MPeuRxuHrYqzF75Hgb+PG UrqJjdj7KsLboym9qde8x nsJt4WiRqHSKs ggYgmOujQMS2z8YzBw12N 29sIHdpZHRoPSIzMCUiIH ZfdXopal5xmI3qBi6+PGN pzTK9mFM9iQ3c NdOlUzW5WIsaU630LtLol ONwWnaur2vzi9twcAy8Uc LdDSFrxoBuwLokSFA3v3Q yFx01Z1MlhEjb j6NfWyf7lc96nREsa5U9j LA5V1UxJTUajifgdHPdkR mbTV3oDXXnahibOLLcjD3 uJHJbN2k4BqHk EgZ5FEidE4WwbeZ2BTPyn KLaCCVgyKETxN3pdbvrx0 fmpimdDoNkCRRtXJb8JYk 0LWFsaWduOiBs VXK3NsL2FTS1pPRuxX0xu TgazcivaI6dVnt+UGh5c2 yidNSbVA5jbEM3QZ23BE6 1iKDne2B6yGP5 T4BrSAAppvzxfbpzaOZ2B YKfDQYbsL25Rr8fqZfvIy 0wFYIxULC1KQEjlWAaB3N dzQ6dIuPrGLWw MLJlV2LdvPBdWBdcJ592J VicZmM7OTMohqVzG8VnMN OnpYboGaR7d7E4He4DQB4 3IC34GE28zBVe o4U4cCV4B7UfMNJrrjkun khddLS8HLAgTJCrlZ29Is 7ylFavAz9gNUQhCWY4ZJT yxEAzY5RyyB2u BvGwNOYuAKQvV1FnuZTkW PumW299LXtbCwA5NHBgem TfF4XvKWOghFhyZoG9l3P 1Wt8DHx83EQ25 BD64pARda4I5lXR8N9YjT RSxmtetwlobwTA0TDYlGW LlxZ31Cd6veZhkZj9sXNF oXUS1INImyNZr Q9ZqsF3qGvKmAOChWOJiT 2YrvEOdMLboF223FAieFk L5QOIhlhIpB7VcKHTddDv nRzS9g6H6Oe0U MNykvat2V7PdEgopaZF+P K13UKZuUL56gVNzlPStb6 fnoUo6WdCbONIyCQB0uKk kHHhcw1TcTEBy Y29 (more content not included)... Normal [facility] Insurance Correspondenceon 1 Insurance Correspondence [id number]# 1.00TIFF Normal [facility] ED Clinical Summaryon 2022 ED Clinical Summary [facility] - Emergency Department [address] [place], [place] [id number] ED Clinical Summary PERSON INFORMATION Name: EVERETTE GEORGE Age: 63 Years Sex: MALE : 1960 MRN: Acct#: Visit Reason: L LEG PAIN Arrival: 05/17/2023 00:50:14 Discharge: 05/17/2023 02:15:00 LOS: 000 01:25 Check In: 05/17/2023 00:50:14 Checkout:05/17/2023 02:15:00 Address: [address] [place], [place] [id number] PCP: Sanju Beard DO PROVIDER INFORMATION Provider Role Assigned Unassigned Axel Light DO ED Provider 05/17/2023 01:04:36 Cookie Cool UNARMED SECURITY GUARD Nurse 05/17/2023 01:17:53 VITALS INFORMATION Vital Sign Triage Latest Temperature Tympanic Temperature Temporal Artery Pulse Rate 78 bpm 72 bpm O2 Sat 100 % 100 % Respiratory Rate 18 br/min 16 br/min Blood Pressure /98 mmHg /98 mmHg MEDICAL INFORMATION Medications Given: Medication Dose Route ketorolac 15 mg IM acetaminophen-oxycodo ne (THP #1 Tab acetaminophen-oxyCODO NE 325 mg-5 mg) 2 packet(s) PO tiZANidine (Zanaflex) 4 mg PO Allergy Information: No Known Medication Allergies PHYSICIAN DOCUMENTATION DISCHARGE INFORMATION: Discharge Disposition: Home Discharge Location: Home PATIENT EDUCATION INFORMATION Instructions: Hypertension, Adult, [id number]; Leg Cramps Follow-Up: With: Address: When: Geena Schroeder DO [address] [place] [id number] Within 2 to 4 days Comments: Try using heat and ice for symptom relief Do regular stretches of your back, hip, leg Use the Zanaflex muscle relaxer as needed but do not drive or operate heavy machinery while taking this or narcotic pain medications as they can make you drowsy Follow-up with your regular physician next week if your symptoms or not improving As we discussed return to the emergency department for worsening or uncontrolled pain, chest pain or shortness of breath, coughing up blood, leg swelling, fevers or redness or other concerns DIAGNOSIS: 1:Left leg pain; 2:Muscle cramp; 3:HTN (hypertension); Acute leg pain Patient Understands: Yes - Patient/family/caregi evans verbalizes understanding of instructions given Comment: Normal [facility] ED Patient Summaryon 023 ED Patient Summary [facility] - Emergency Department [address] [place] [address] PATIENT DISCHARGE INSTRUCTIONS Patient Information Name: EVERETTE GEORGE Age: 63 Years Date of : 1960 Reason For Visit: L LEG PAIN Arrival Time: 05/17/2023 00:50:14 Primary Care Physician: Sanju Beard DO Attending Physician: Axel Light DO Comment: Visit Diagnosis: Diagnoses This Visit Acute leg pain (M79.606) HTN (hypertension) (I10) Left leg pain (M79.605) Muscle cramp (R25.2) The Pharmacy at [facility] is open Friday through Friday from 9A to 6P and Friday and Friday from 9A to 5P Prescription Information: If you have been given a prescription for narcotics, seek immediate medical attention if you have any difficulty breathing or any sudden status changes such as confusion and sleepiness. If you or anyone you know is experiencing suicidal thoughts, mental health, alcohol and/or drug addiction problems; contact the [facility] 03/03 Crisis Hotline -Text 4HKQU lh 859017. If you received any narcotics, sedation, or any other medication that causes drowsiness for the next 24 hours, unless otherwise directed: ? Do not drive a car. ? Do not operate machinery such as power tools, lawn mowers, drills, sewing machines, or stoves ? Avoid alcoholic beverages and drugs for allergies, nerves, or sleep ? Do not make important personal or business decisions or sign any legal documents With: Address: When: Geena Schroeder DO [address] [place] [address] Within 2 to 4 days Comments: Try using heat and ice for symptom relief Do regular stretches of your back, hip, leg Use the Zanaflex muscle relaxer as needed but do not drive or operate heavy machinery while taking this or narcotic pain medications as they can make you drowsy Follow-up with your regular physician next week if your symptoms or not improving As we discussed return to the emergency department for worsening or uncontrolled pain, chest pain or shortness of breath, coughing up blood, leg swelling, fevers or redness or other concerns Medication Information: The exam and treatment you received today in the [facility] Emergency Department were for an urgent problem and are not intended as complete care. It is important for you to follow up with a doctor, nurse practitioner, or physician?s litigation assistant for ongoing care. If your symptoms become worse or you do not improve as expected and you are unable to reach your usual health care provider, you should return to the Emergency Department, we are available 24 hours a day. For those patients who have received Radiology results, the interpretation of your X-ray as given to you by our Emergency Department physician is only a preliminary report. The Radiologist will review your films and if there is a change in the diagnosis you will be notified by phone. Please make sure you have provided a working phone number so we can reach you if necessary. In the event that you had a lab culture while you were a patient in the Emergency Department, you will be notified by phone if there is a need to change your antibiotic. Please make sure you have provided a working phone number so we can reach you if necessary. [facility] Emergency Department has provided you with a complete list of medications post discharge. Please inform your isotope technologist/provider of your visit and for further instruction on these medications. Any specific questions regarding your chronic medications and dosages should be discussed with your primary care physician(s) and/or pharmacist. New Medications [facility], [address], [place] [id number], [phone] tiZANidine (Zanaflex 4 mg oral tablet) 1 tab(s) Oral Every 8 hours. Refills: 0. Medications to Continue That Have Not Changed Other Medications betamethasone-clotrim azole topical (betamethasone-clotri mazole 0.05%-1% topical cream) 1 sarah Topical 2 times a day. clopidogrel (clopidogrel 75 mg oral tablet) 1 tab(s) Oral every day. clopidogrel (clopidogrel 75 mg oral tablet) 1 tab(s) Oral every day. gabapentin (gabapentin 300 mg oral capsule) 1 cap(s) Oral 3 times a day. indapamide 25 Milligram Oral every day. insulin detemir (Levemir FlexPen 100 units/mL subcutaneous solution) isosorbide mononitrate (isosorbide mononitrate 30 mg oral tablet, extended release) 1 tab(s) Oral once a day (in the morning). lisinopril (lisinopril 20 mg oral tablet) 1 tab(s) Oral every day. metFORMIN (metFORMIN 1000 mg oral tablet) 1 tab(s) Oral 2 times a day. nitroglycerin as needed as needed for chest pain. semaglutide (Ozempic 8 mg/3 mL (2 mg dose) subcutaneous solution) sildenafil 50 Milligram Oral every day. tamsulosin (tamsulosin 0.4 mg oral capsule) 1 cap(s) Oral every day. temazepam (temazepam 15 mg o (more content not included)... Normal [facility] Ambulatory Visit Summaryon 0 05-02-2023 Ambulatory Visit Summary EVERETTE GEORGE :1960 Visit Date:05/02/2023 Ambulatory Visit Instructions Your Diagnosis Positive colorectal cancer screening using Cologuard test On clopidogrel therapy HTN (hypertension) Diabetes Aspirin long-term use BMI 45.0-49.9, adult Morbid obesity Your Care Team Attending Physician - Joe Limon MD Primary Care Physician - SANJU BEARD DO Referring Physician - SANJU BEARD DO This Is Your Medications List allopurinol (allopurinol 100 mg Tab) aspirin (aspirin 81 mg Oral EC Tab) atorvastatin (atorvastatin 40 mg Tab) carvedilol (carvedilol 6.25 mg Tab) cephalexin (Keflex 500 mg Cap) cholecalciferol (Vitamin D3) clopidogrel (Plavix 75 mg Tab) clopidogrel (Plavix 75 mg Tab) diclofenac topical (Voltaren Gel 1% Gel) indomethacin (indomethacin 25 mg Cap) insulin aspart (NovoLog) insulin detemir (Levemir FlexTouch 100 units/mL subcutaneous solution) isosorbide dinitrate lisinopril (lisinopril 20 mg Tab) metformin (metformin 1000 mg oral tablet) multivitamin with minerals (Multivitamins and Minerals) nitroglycerin (nitroglycerin 0.4 mg SubL [place]) potassium bicarbonate (K-Effervescent 25 mEq oral tablet, effervescent) semaglutide (Ozempic (1 mg dose) 4 mg/3 mL subcutaneous solution) tamsulosin (tamsulosin 0.4 mg Cap) temazepam (temazepam 15 mg Cap) Procedures Performed Cystoscopic removal of ureteric stent (02/26/2022), Cystoscopic removal of ureteric stent (02/14/2022), Stone retrieval basket (02/14/2022), Cardiac catheterization, left heart (01/11/2022), Cystoscopy (11/20/2021), Cystourethroscopy with dilation of urethral stricture, Placement of stent in cardiac conduit, Prosthetic arthroplasty of hip, Total replacement of hip. Discharge Vitals Heart Rate (Peripheral) 72 Respiratory Rate 16 Blood Pressure 123/72 Height 185 cm Height 73 in Weight 158 kg Weight 347.6 lb BMI 46.17 What to do next Scheduled Follow-Up Appointments Friday 10:30 AM EST With: DOMINGUEZ ACEVEDO, Estuardo Peralta Where: [facility] CHEMISTRYOrdered By: SYSTEM SYSTEM on 05-02-2023 Cholesterol [Mass/Vol] 109 mg/dL Low 120 - 200 mg/dL [facility] Remisol Cholesterol in HDL [Mass/Vol] 40 mg/dL Invalid Interpretation Code [facility] Remisol Cholesterol in LDL [Mass/Vol] 56 mg/dL Normal <=129mg/dL [facility] Remisol Cholesterol in VLDL [Mass/Vol] 18 mg/dL Normal 7 - 40 mg/dL [facility] Remisol Triglyceride [Mass/Vol] 89 mg/dL Normal <=149mg/dL [facility] Remisol Consent for Procedure/Surger yon 05-02-2023 Consent for Procedure/Surgery [id number]# 1.00CD:127 Normal [facility] Consent for Treatmenton 04-12 Consent for Treatment [id number] .00CD:127 Normal [facility] General Surgery Office/Clini c Noteon 05-02-2023 General Surgery Office/Clinic Note Chief Complaint PROCESSING REP Colonoscopy HPI Staff PROCESSING REP Everette is a 63 y.o. male here for positive Cologuard Dr. Beard referring Last colonoscopy- over 10 years ago Denies family history of colon cancer Denies rectal pain/abdominal pain/rectal bleeding/black stools/constipation Anti-coagulant Plavix History of Present Illness Everette George is a 63-year-old male who was referred to us for positive Cologuard. He did undergo a cardiac catheterization with placement of a Promus Synergy XD stent in the mid left anterior descending coronary artery on 01/11/2022. He is more than 1 year from his operation. The patient still takes aspirin. He denies family history of colon cancer. He does report occasional blood per rectum, which he suspects maybe due to hemorrhoid. Review of Systems PHQ Score Initial Depression Screen Score: 0 Constitutional: No fever, no sweats, no weight loss. Eyes: No glasses, no blurred vision, no visual loss. ENMT: No dentures, no hoarseness, no swallowing difficulties, no hearing loss, no ear infection (s), no nose bleeds. Cardiovascular: Normal blood pressure, no chest pain, regular heartbeat, no heart murmur. Respiratory: No shortness of breath, no cough, no wheezing, no asthma. Gastrointestinal: No nausea, no vomiting, no diarrhea, no constipation, no change in bowel habits, no abdominal pain, no hepatitis. Genitourinary: No kidney stones, no urine infection, no difficulty passing urine. Musculoskeletal: No pain, no weakness. Skin: No changing moles, no rash, no skin lumps. Neurologic: No seizures, no epilepsy, no headache. Psychiatric: No emotional, no psychiatric problem. Endocrine: No thyroid, no diabetes. Heme/Lymph: No bleeding problems, no anemia, no blood clots, no transfusions. Allergy/Immunologic: No swollen lymph nodes/glands, no IV drug abuse. Other: Additional ROS info: Except as noted in the above Review of Systems and in the History of Present Illness, all other systems have been reviewed and are negative or noncontributory. Physical Exam Vitals & Measurements HR: 72(Peripheral) RR: 16 BP: 123/72 SpO2: 99% HT: 73 in HT: 185 cm WT: 158 kg WT: 347.6 lb BMI: 46.17 General: No acute distress Respiratory: Unlabored breathing on room air Cardiac: Regular rate and rhythm Abdomen: Soft nontender nondistended Assessment/Plan The patient is a 63-year-old male with a recent history of cardiac catheterization performed 1 year ago with positive Cologuard. 1. Positive colorectal cancer screening using Cologuard test (R19.5: Other fecal abnormalities) Proceed with diagnostic colonoscopy after cardiac clearance from Dr. Gay. 2. On clopidogrel therapy (Z79.01: penitentiary (current) use of anticoagulants) We will need clearance from Dr. Gay to hold Plavix for 5 days before the procedure as there will likely be a polypectomy involved in this case given that it is for a positive Cologuard. 3. HTN (hypertension) (I10: Essential (primary) hypertension) The patient is to hold his lisinopril on the day of the procedure. 4. Diabetes (E11.9: Type 2 diabetes mellitus without complications) The patient is to take half dose of Levemir the morning of the procedure as it is a long-acting insulin. 5. Aspirin long-term use (Z79.82: penitentiary (current) use of aspirin) The patient is to continue his aspirin without interruption as the bleeding risk from just aspirin alone is minimal. 6. BMI 45.0-49.9, adult (Z68.42: Body mass index [BMI] 45.0-49.9, adult) Education was provided. The patient is interested in a referral to bariatric surgery, which we will pursue postoperatively. 7. Morbid obesity (E66.01: Morbid (severe) obesity due to excess calories) See above. Portions of this record may have been created with voice recognition artificial intelligence software, specifically Cuciniale, EZBOB and or Chloe + Isabel. Substitutions may have occurred voice recognition and artificial intelligence software. Documentation services were performed after patient or guardian consented to allow Process Data [employer] to record this visit. BENIGNO nanofabrication specialist and provider reviewed before signing. BENIGNO: Magy Singletary Follow-up No qualifying data available Patient Education Obesity, Adult Problem List/Past Medical History Ongoing Aspirin long-term use BMI 45.0-49.9, adult BPH (benign prostatic hyperplasia) Diabetes HTN (hypertension) Hyperlipidemia Kidney stone Morbid obesity On clopidogrel therapy Positive colorectal cancer screening using Cologuard test Ureteral stone Historical No qualifying data Procedure/Surgical History Cystoscopic removal of ureteric stent (02/26/2022), Cystoscopic removal of ureteric stent (02/14/2022), Stone retrieval basket (02/14/2022), Cardiac catheterization, left heart (01/11/2022), Cystoscopy (11/20/2021), Cystourethroscopy with dilation of urethral stricture, Placement of stent in cardiac conduit, Pr (more content not included)... Normal [facility] Comment on above: Result Comment: Elec tronically Signed By: Joe Limon MD\.br\Date and Time Signed: 05/02/23 12:47 EDT\.br\Electronically Co-Signed By: Magy Singletary.br\Date and Time Co-Signed: 05/02/23 12:44 EDT Lipid Panelon 05-02-2023 Cholesterol [Mass/Vol] 109 mg/dL Low 120-200 [facility] Comment on above: Performed By: #### 2 [id number] ####[facility] [address] [place] [address] Cholesterol in HDL [Mass/Vol] 40 mg/dL Invalid Interpretation Code [facility] Comment on above: Result Comment: HDL > or equal to 60 mg/dL: Low cardiovascular risk HDL < 40 mg/dL : High cardiovascular risk Performed By: #### 2 [id number] ####[facility] [address] [place] [address] Cholesterol in LDL [Mass/Vol] 56 mg/dL Normal <=129 [facility] Comment on above: Performed By: #### 2 [id number] ####[facility] [address] [place] [address] Cholesterol in VLDL [Mass/Vol] 18 mg/dL Normal 7-40 [facility] Comment on above: Performed By: #### 2 [id number] ####[facility] [address] [place] [address] Triglyceride [Mass/Vol] 89 mg/dL Normal <=149 [facility] Comment on above: Performed By: #### 2 [id number] ####[facility] [address] [place] [address] Patient Educationon 05-02-20 Patient Education Gastroenterology Obesity, Adult Obesity is the condition of having too much total body fat. Being overweight or obese means that your weight is greater than what is considered healthy for your body size. Obesity is determined by a measurement called BMI (body mass index). BMI is an estimate of body fat and is calculated from height and weight. For adults, a BMI of 30 or higher is considered obese. Obesity can lead to other health concerns and major illnesses, including: ? Stroke. ? Coronary artery disease (CAD). ? Type 2 diabetes. ? Some types of cancer, including cancers of the colon, breast, uterus, and gallbladder. ? High blood pressure (hypertension). ? High cholesterol. ? Gallbladder stones. Obesity can also contribute to: ? Osteoarthritis. ? Sleep apnea. ? Infertility problems. What are the causes? Common causes of this condition include: ? Eating daily meals that are high in calories, sugar, and fat. ? Drinking high amounts of sugar-sweetened beverages, such as soft drinks. ? Being born with genes that may make you more likely to become obese. ? Having a medical condition that causes obesity, including: ? Hypothyroidism. ? Polycystic ovarian syndrome (PCOS). ? Binge-eating disorder. ? Perta syndrome. ? Taking certain medicines, such as steroids, antidepressants, and seizure medicines. ? Not being physically active (sedentary lifestyle). ? Not getting enough sleep. What increases the risk? The following factors may make you more likely to develop this condition: ? Having a family history of obesity. ? Living in an area with limited access to: ? [place], recreation centers, or sidewalks. ? Healthy food choices, such as grocery stores and [employer] markets. What are the signs or symptoms? The main sign of this condition is having too much body fat. How is this diagnosed? This condition is diagnosed based on: ? Your BMI. If you are an adult with a BMI of 30 or higher, you are considered obese. ? Your waist circumference. This measures the distance around your waistline. ? Your skinfold thickness. Your health care provider may gently pinch a fold of your skin and measure it. You may have other tests to check for underlying conditions. How is this treated? Treatment for this condition often includes changing your lifestyle. Treatment may include some or all of the following: ? Dietary changes. This may include developing a healthy meal plan. ? Regular physical activity. This may include activity that causes your heart to beat faster (aerobic exercise) and strength training. Work with your health care provider to design an exercise program that works for you. ? Medicine to help you lose weight if you are unable to lose one pound a week after six weeks of healthy eating and more physical activity. ? Treating conditions that cause the obesity (underlying conditions). ? Surgery. Surgical options may include gastric banding and gastric bypass. Surgery may be done if: ? Other treatments have not helped to improve your condition. ? You have a BMI of 40 or higher. ? You have life-threatening health problems related to obesity. Follow these instructions at home: Eating and drinking ? Follow recommendations from your health care provider about what you eat and drink. Your health care provider may advise you to: ? Limit fast food, sweets, and processed snack foods. ? Choose low-fat options, such as low-fat milk instead of whole milk. ? Eat five or more servings of fruits or vegetables every day. ? Choose healthy foods when you eat out. ? Keep low-fat snacks available. ? Limit sugary drinks, such as soda, fruit juice, sweetened iced tea, and flavored milk. ? Drink enough water to keep your urine pale yellow. ? Do not follow a fad diet. Fad diets can be unhealthy and even dangerous. ? Other healthful choices include: ? Eat at home more often. This gives you more control over what you eat. ? Learn to read food labels. This will help you understand how much food is considered one serving. ? Learn what a healthy serving size is. Physical activity ? Exercise regularly, as told by your health care provider. ? Most adults should get up to 150 minutes of moderate-intensity exercise every week. ? Ask your health care provider what types of exercise are safe for you and how often you should exercise. ? Warm up and stretch before being active. ? Cool down and stretch after being active. ? Rest between periods of activity. Lifestyle ? Work with your health care provider and a dietitian to set a weight-loss goal that is healthy and reasonable for you. ? Limit your screen time. ? Find ways to reward yourself that do not involve food. ? Do not drink alcohol if: ? Your health care provider tells you not to drink. ? You are , may be , or are planning to become . ? If you drink alcohol: ? Limit how much you have to (more content not included)... Normal [facility] Physician Referralon 023 Physician Referral [id number]. 00CD:127 [facility] Consent for Treatmenton 03-11 Consent for Treatment [id number] .[id number]:127 [facility] Heart and Vascular Office/Cl inic Noteon 03-25-2023 Heart and Vascular Office/Clinic Note History of Present Illness Patient is a very pleasant 62-year-old lifelong non-smoker with a history of obesity, obstructive sleep apnea using CPAP, diabetes, hypertension, hypercholesterolemia, coronary artery disease status post angioplasty reportedly of [address] Luevano at [facility] and previously seen with Dr. Posadas. Referred to our office for abnormal stress test and apparent preoperative stratification. Patient apparently became septic with a kidney stone, and had abnormal troponins. Patient apparently requires lithotripsy for kidney stones and underwent an outpatient Lexiscan nuclear stress test which was abnormal. Apparently he was unable to get a cardiac catheterization with Dr. Luevano due to insurance issues. He was referred to us for further evaluation. We were able to obtain the Lexiscan component of the stress test but not the myocardial perfusion imaging. The patient has no recollection of where his stents were placed by Dr. Luevano, or where the stress test was abnormal. His anginal equivalent in 2019 was pain shooting across his chest as well as left arm pain all of which have resolved since his stenting. He denies any exertional chest pain, angina, or shortness of breath. He is taking and tolerating his medicines well. Given his abnormal stress test he underwent a diagnostic coronary angiogram on 01/11/2022 with the following results: CONCLUSIONS: 1. Significant critical lesion in the midportion of the left anterior descending upstream from his previously placed mid-left anterior descending stent 2. Widely patent posterolateral stent. 3. Minor nonobstructive disease of the left circumflex and RC system. 4. Hyperdynamic LV function with an ejection fraction of 65%. 5. Normal left ventricular end diastolic pressure. [1] Immediately following the cath procedure he underwent successful angioplasty on 01/11/2022 with the following results: CONCLUSIONS: 1. Successful complex Heparin and Plavix assisted angioplasty and drug-eluting stenting to the mid-left anterior descending utilizing double wire technique and multiple balloon inflations finally culminating in a 2.5 x 16 Promus Synergy XD stent postdilated in its entirety with a 3.0 x 8 noncompliant balloon. 2. Successful Mynx closure device. 3. No additional lesions that require correction at this time. [2] Subsequent to that he underwent an echocardiogram on 01/29/2022 with the following results: (01/29/2022 12:30 EDT Echo Transthoracic Complete) SUMMARY/CONCLUSION: 1. Normal left ventricular size and function with a left ventricular ejection fraction of 55-60%. 2. Trivial tricuspid regurgitation with normal right ventricular systolic pressure of 23 mmHg. 3. Stage 1 diastolic dysfunction. 4. No old echocardiograms for comparison. [3] As part of his evaluation he underwent a stress test on 03/07/2023 with the following results: (03/07/2023 13:59 EDT NM Myocardial Spect Multi Rest) CONCLUSIONS: 1. Abnormal adequate Lexiscan/MPI. The patient appears to have subtle inferior hypoperfusion which worsens slightly during Lexiscan infusion. The total extent of this hypoperfusion is 6% making this a low to medium risk study. 2. No anginal symptoms or arrhythmias noted. 3. Normal TID of 1.10. 4. Normal LV size and function with an ejection fraction of 59%. 5. This is an intermediate risk study. Recommend clinical correlation or alternative mode of testing if coronary occlusive disease is strongly suspected. [1] Patient patient is now here for follow-up to go over his testing. Testing results given to the patient.. Patient states that he feels much better, denies any chest pain, angina, shortness of breath or dyspnea on exertion. He is compliant with his CPAP. He has occasional positional lightheadedness but this is well-tolerated and has known vertigo. His main complaint is dyspnea on exertion but he is quite overweight. He has been on Isordil since his first angioplasty with Dr. Luevano. Patient is scheduled for left ankle surgery possibly in April 2023. In our office today his blood pressure is 134/74 and pulse of 72 and regular. Physical exam is as below. EKG dated 10/30/2021 shows normal sinus rhythm, low voltage, borderline EKG. EKG dated 01/10/2022 shows normal sinus rhythm at a rate of 72 beats a minute, leftward axis, no previous myocardial infarction. EKG dated 02/13/2023 shows normal sinus rhythm, left axis deviation, left anterior hemiblock, no previous myocardial infarction. [1] Review of Systems Constitutional: no fever, no chills, no weakness, no fatigue Respiratory: no shortness of breath, no cough, no orthopnea, no wheezing Cardiovascular: no chest pain, no palpitations, no edema Neuro: no dizziness no light headed no syncope Additional ROS info: Except as noted in the above Review of Systems and in the History of Present Illness all other systems have been reviewed and are negative or noncontributory. Physical Exam General: alert, no acute distres (more content not included)... Normal [facility] Comment on above: Result Comment: Elec tronically Signed By: VICTOR HUGO ACEVEDO, Leodan Doherty\.pop\Date and Time Signed: 03/25/23 11:49 EDT Physician Orderon 03-25-2023 Physician Order [id number]# 1.00CD:127 Normal [facility] NM Myocardial Spect Rest/Str ess 2 Dayon 03-11-2023 NM Myocardial Spect Rest/Stress 2 Day Exam Date/Time: 03/10/2023 15:14 EDT 03/07/2023 13:59 EDT Reason for Exam: I25.10;CAD Coronary artery disease I25.10;CAD Coronary artery disease Report LEXISCAN/MPI OVER 2 DAYS 03/06/2023 AND 03/10/2023 INDICATIONS: Coronary artery disease. STUDY: After informed consent was obtained the patient was injected with 28.9 millicuries of Cardiolite on 03/07/2023 for rest/SPECT imaging. The patient then returned on 03/10/2023 and underwent Lexiscan infusion per protocol receiving an additional 30.3 millicuries of Cardiolite for stress/SPECT imaging. RESTING ELECTROCARDIOGRAM: The patient has normal sinus rhythm, leftward axis, low voltage in the precordial and limb leads, no previous myocardial infarction noted. The patient has poor R wave progression across the precordium that may be secondary to lead misplacement. LEXISCAN ELECTROCARDIOGRAM: During Lexiscan infusion the patient's heart rate remained the same. The patient had no dynamic electrocardiogram changes or anginal symptoms noted. IMAGING: The patient appears to have normal LV size and function with an ejection fraction of 59% with normal LV end diastolic volume. TIDE is normal at 1.10. Rest perfusion imaging demonstrates subtle inferior hypoperfusion which appears to slightly worsen during stress totaling 6%. There are no other areas of ischemia noted. CONCLUSIONS: 1. Abnormal adequate Lexiscan/MPI. The patient appears to have subtle inferior hypoperfusion which worsens slightly during Lexiscan infusion. The total extent of this hypoperfusion is 6% making this a low to medium risk study. 2. No anginal symptoms or arrhythmias noted. 3. Normal TID of 1.10. 4. Normal LV size and function with an ejection fraction of 59%. 5. This is an intermediate risk study. Recommend clinical correlation or alternative mode of testing if coronary occlusive disease is strongly suspected. FINAL REPORT Signed (Electronic Signature): 03/11/2023 10:37 am Signed by: Leodan GAY MD Transcribed by: nelly Technologist: DEBI Technical Comments NM Myocardial Spect Part 2: Please See Report for NM Myocardial Spect Rest/Stress 2 Day Stress Dose (mCi Tc99M Cardiolite): 30.3 NM Myocardial Spect Rest/Stress 2 Day: Rest Dose (mCi Tc99m Cardiolite): 28.9 Normal [facility] Stress EKG Tracingson 2022 Stress EKG Tracings [id number] #1.00CD:127 [facility] Consent for Treatmenton 02-09 Consent for Treatment [id number]#1 .00CD:127 [facility] Pre-Certification Formon Pre-Certification Form [id number]# 1.00CD:127 [facility] Consent for Treatmenton Consent for Treatment [id number]#1 .00CD:127 [facility] Heart and Vascular Office/Cl inic Noteon 02-13-2023 Heart and Vascular Office/Clinic Note History of Present Illness Patient is a very pleasant 62-year-old lifelong non-smoker with a history of obesity, obstructive sleep apnea using CPAP, diabetes, hypertension, hypercholesterolemia, coronary artery disease status post angioplasty reportedly of [address] Luevano at [facility] and previously seen with Dr. Posadas. Referred to our office for abnormal stress test and apparent preoperative stratification. Patient apparently became septic with a kidney stone, and had abnormal troponins. Patient apparently requires lithotripsy for kidney stones and underwent an outpatient Lexiscan nuclear stress test which was abnormal. Apparently he was unable to get a cardiac catheterization with Dr. Luevano due to insurance issues. He was referred to us for further evaluation. We were able to obtain the Lexiscan component of the stress test but not the myocardial perfusion imaging. The patient has no recollection of where his stents were placed by Dr. Luevano, or where the stress test was abnormal. His anginal equivalent in 2019 was pain shooting across his chest as well as left arm pain all of which have resolved since his stenting. He denies any exertional chest pain, angina, or shortness of breath. He is taking and tolerating his medicines well. Given his abnormal stress test he underwent a diagnostic coronary angiogram on 01/11/2022 with the following results: CONCLUSIONS: 1. Significant critical lesion in the midportion of the left anterior descending upstream from his previously placed mid-left anterior descending stent 2. Widely patent posterolateral stent. 3. Minor nonobstructive disease of the left circumflex and RC system. 4. Hyperdynamic LV function with an ejection fraction of 65%. 5. Normal left ventricular end diastolic pressure. [1] Immediately following the cath procedure he underwent successful angioplasty on 01/11/2022 with the following results: CONCLUSIONS: 1. Successful complex Heparin and Plavix assisted angioplasty and drug-eluting stenting to the mid-left anterior descending utilizing double wire technique and multiple balloon inflations finally culminating in a 2.5 x 16 Promus Synergy XD stent postdilated in its entirety with a 3.0 x 8 noncompliant balloon. 2. Successful Mynx closure device. 3. No additional lesions that require correction at this time. [2] Subsequent to that he underwent an echocardiogram on 01/29/2022 with the following results: (01/29/2022 12:30 EDT Echo Transthoracic Complete) SUMMARY/CONCLUSION: 1. Normal left ventricular size and function with a left ventricular ejection fraction of 55-60%. 2. Trivial tricuspid regurgitation with normal right ventricular systolic pressure of 23 mmHg. 3. Stage 1 diastolic dysfunction. 4. No old echocardiograms for comparison. [3] Patient patient is now here for follow-up. Patient states that he feels much better, denies any chest pain, angina, shortness of breath or dyspnea on exertion. He is compliant with his CPAP. He has occasional positional lightheadedness but this is well-tolerated and has known vertigo. His main complaint is dyspnea on exertion but he is quite overweight. He has been on Isordil since his first angioplasty with Dr. Luevano. Patient is scheduled for left ankle surgery possibly in April 2023. In our office today his blood pressure is 129/74 and pulse of 77 and regular. Physical exam is as below. EKG dated 10/30/2021 shows normal sinus rhythm, low voltage, borderline EKG. EKG dated 01/10/2022 shows normal sinus rhythm at a rate of 72 beats a minute, leftward axis, no previous myocardial infarction. EKG dated 02/13/2023 shows normal sinus rhythm, left axis deviation, left anterior hemiblock, no previous myocardial infarction. Review of Systems Constitutional: no fever, no chills, no weakness, no fatigue Respiratory: no shortness of breath, no cough, no orthopnea, no wheezing Cardiovascular: no chest pain, no palpitations, no edema Neuro: no dizziness no light headed no syncope Additional ROS info: Except as noted in the above Review of Systems and in the History of Present Illness all other systems have been reviewed and are negative or noncontributory. Physical Exam General: alert, no acute distress Neck: Supple, noJVD nocarotid bruit Cardiovascular: regular rate and rhythm, no murmur normal peripheral perfusion Respiratory: Lungs CTA, respirations non labored Extremities: no edema Neurological: oriented x 4, LOC appropriate for age, sensation equal & normal bilaterally, speech normal Skin: Warm, dry, intact- no rash or concerning lesions Assessment/Plan 1. Coronary artery disease: The patient requires left ankle surgery in the near future, and with his known history of coronary disease, shortness of breath I recommended that he undergo a Lexiscan/MPI to evaluate for possible anterior ischemia. If this is grossly abnormal for ischemia particularly in the anterior wall and have a low threshold for repeat catheterization. If it is n (more content not included)... Normal [facility] Comment on above: Result Comment: Elec tronically Signed By: Victor Hugo ACEVEDO, Leodan Renee.br\Date and Time Signed: 02/13/23 16:00 EDT Physician Orderon 02-13-2023 Physician Order [id number]# 1.00CD:127 Normal [facility] Physician Order [id number]# 1.00CD:127 Normal [facility] Coding Summary.on 10-09-2022 Coding Summary. CD:[id number] G h0bWw+PGhlYWQ+BE1DRRK lD26sgLKdfJ2NH6jVPJ4Z JMCMCCZYML2MSZ7oxDH3U BpcP0OeurLw ZifquZFaNQ30UPp1ITT8z CbmLJrciA3poDDiX0o9La WzDL93hW72IOwtLDRlPcB 3LjZpbjsgbWFy S3gzAgDzhAYaGvf+PHRhY mxlIHdpZHRoPScxMDAlJy FnpNvaAH3uBf7nQBNsHHV vbGxhcHNlOiBj e2ucEWZtIDptLH5itDdjY 5FdkZG7ABQfs4x1Jm74nJ I+QGWcTZJ3uRjxCWljx19 2YyCxe9edFPL8 sOLxMSjxFIS4B88jb0M3K ONjBMCbKJT7zJZ2pL8ciU cmqkpnS7WseOLrQoQ2PAR 1hOTuyN4gxIzz vtzsfH7sObe+H14YMB6ZD DXQXA0OMfw7V1XuGfiixX I+FX49MWHzDD60fAVkyTD yq3oisBw6KoNr OIJgFYI4oTreWIjci4XoS ONbE68xaBVke4O5SWZfbE knvRBlUzEuaUF1kZ4uLOz ljkosk7wmrqgy Myzgk3bpet57kY33A18mS TicMWSkSMJ6NSIxKMJglW rhir8enG8dPo7+FGsqh6a qc6wotGb6QtAa KXDqmxIprBwcHSG9o1MyJ e05K4IhcJthr7PqVme3zl 05vXOux3V7zMS0PHmhKIY bgP5uJVjnYiO7 WIXoQzFvlD47vIAzCBpxJ k4lhKtsfDxqHW9rZBQobz utGWKbeC4cXLFzbMMqpWv bZK1cKGZousfu a564SuMrHRU3USFndRUiO 1SsuT2eZyZiAELvIPOeR4 PtaRLwKLvsY367YHxoAzO 8LLBlbiSwV4Gk DCVszCdnPvF6f5C7Ph5Jw 6LlmjnqOVH0RYmgDXArEb RuNgExLbX1L4WfNpe7RXI cjRptDR6wA2Uv ZCGherzkhnmukUR7VZTuD ZOvjS56mUFcEIixVw2kk3 X1r624SNTbXRQvyI83Zf3 udDogMTBwdCBU fC0pyimae4buaxufAiXuE JLuTCi5TUv2YNAuyQzhSj WsCSM7WxK3ANC7pGVjaO6 cnTiymlfpwK0a Oyc+F69hsW4mNTF4ZTA4t fwgMXFjgfSzUR04LX45D5 RyPjwvdGFibGU+PGRpdiB evBkmRE2kUsKv p7uyr1EqQMesK5XiNGJwT PbqKbd5XALmQQK1tLL1kU 6xVDXpNUsyh3T9wMQ9E3B myoJtdz6mq1tv FMEkSZszI63bmHMvw6S6N CDxoLK4DMXsbDcgGjBvdE 93Oyc+FIWrnXwlc8UpGtu bl4dpb1kdpKl7 UfHfKIJbpxJmaPzoYMP9u 9JwWv81K38qMMnvSZRdCD FpHDArTASffGpyhd3pdR8 wIi8+PGNvbCB3 wFC9lP7aHPBnYuF1YOljS 862NnKjlMDjZdkmf2dpc6 akkOg6UqFbUGVetmBxhGt eCMU2w1NjWt56 S69bDDmrXKPzBNRxWREzO COwuRybyy4oqR5zIu9+PC 1wd6pcse54bP08yEY+PHR sFWB0eNkmGLnh LKTtuH4sAFsmXmB3QKPiM sSynY05uZGbHIjxRp8flJ ijgAluNT4gVRYoxpumf24 4LyZoc5uiVJJv lXRlRKxwITE9X53dn2V4Z VDeRKIpAXC4gFE2vV5tmD lnbjogbGVmdDsgdmVydGl lEOxvGOwcF893 IHRvcDsnPlBhdGllbnQgT wZsTIg4M0AlFhg0XJPlfU guJO5kfWVwXFpyXm6laEd oyVrpYK0vJKEa rrnes792NvOvh2dzJZGow TGmGXoyAJW2L46me0B5MG RhHQWjOTK2wNT9iF1pbUb nbjogbGVmdDsg rtDjcArjLUjtHJcfM737D HRvcDsnPkJpcnRoIERhdG L1WS26HA20jSCpu2L3kTM 0G7AtBQAfukry vfvdkGK2YUEdAAVnoI24H e4moNcwHy3yKLTiMTD2CO MjsIVnU8NhiH8jMqNtMLE yOUZfY4KbpYKe IJqzP236KVqhZcQ2AOKmq qFoH3AfONNjrVqbJsO2r9 O7Or3YB1K6TR82VM32aMN ne2V2hIP5S0Rb DGXunfmjdqxauAO4WWZsW SKzhS10Fa9muWbjNi3hKO WpJVA0GLFuxAIzG4DakQ6 yOiAjMDAwMDAw X2TdtYSiKKdrI952HErfD wD7BRQtetHkJ3GlOSChwM oxScT0e9C0Li8TCJn6HP5 5MM91jGTqa8C7 aRN0R0QvBNPpsczfxlxbp LC4PFMcJIRulK59Iy0ckI bkNw8qBKTyUVR1VJAslYG nB3UwnF0bUsZm WCDxABXbL3PimZJrYFndX 047GSuoFoD3UEFwrrAfH9 VxMYXmmXekObY0i4Q2Kt7 WQHWlHJ87UFI1 vDR8EG99HC16M1AtCveqk GFibGU+PHRhYmxlIHdpZH RoPScxMDAlJyBzdHlsZT0 rZr5xIJCdKBXr rKhvrDDcQcEcb1qbVINbS NqhGE4ilDgtN9LbqPQ2NI Clf9r2Hi67T10zX5IdsZY +SNFesOQ9iGM9 iR0tQkHjKvE5JRnwQ542D qIpsTEpIvfya5kns6cocD n4VrU2XOHxitMrrGcyQER 3d8QrQz94D98j IHdpZHRoPSIxNSUiIHZhb Hnqao3ixO2mFj1+PGNvbC U8xCP7bI9lZeBhXlQ9XMu tV227XwDrnYGl Phfsi6icg6zvyYj0DnNzB KLywwXssXhwCQU8m1SdSy 04D7PaoTrdt4KhIiw0ow6 3fRGex0Z5qMM6 V6YaYIThgfwsrSJqhCmgC V0hDFFnqrfmRIEfeN4jMT JcL7d3HkFoEgN9ZNihP8M dteH3PFHgdJNe PJyqNRZ6O70hu6Q5YWPqH PDsATC6rOR8cY0wvFlaqd ogbGVmdDsgdmVydGljYWw jNOhmQ741ELLy vOyaIHNzsF2tUDAdyEBvs XtbLE9eFMHijazfQrEOZK tIDoITL4fyCZeNGNgAZJ0 gQzwvdGQ+PHRk SFG5hGnlSJhvYUQpcW3pD TAwP6o0OtGsGrW5UGaaY5 EmDRZycpamQb40rJ7tWdC yTyC0PCkoC2Th ftW1MBHtmEFjBAzjYRD4X 84lz7B1OQDaDGAzUQN2aU Q7tO0rnDiraxxazALqzAi gdmVydGljYWwt QVvoB883CXCevQcnFiH5L rZlRhX1NuB1X5IkZnt8KJ AkqYxxFV0wbPGgCYvbSl8 wlLajrRmiKJ7a WGBcykdxPNLjvR1jPIFgd RMjoIvaRE1nEBClekqpp0 42SeEhHHR5UYGvkWXeW4M yfW8xOxDvXDFs HYAnL6RxeOPlKAsjU515C DvcPmS6CVAtusHdB2KoOI ObeRzbDhL7y7M3Zv13EKB ZZWFyczwvdGQ+ JDOjGWH3pHelNYuqFWOjo H9kABYwS3x5ZoIlXyN0FQ ouN9SqBYDldmuzGn27nJ3 bLsQiQyU6OWvv I0TpmcJ0LTFmnBNhWWyeV CV3U49iz2O6SEWdDUMpZU O9tSJ9nD7udAqlkoidoTC mdDsgdmVydGlj IMvwVNozT279PUWflMvbO y7sfAB1S4GuTzw5DFVshF buWY0rnNPuUHhiDd5yzRu izDngAY1qUTUz kvhhOPJqpT8mLIQvuPTae GlvWR9lILBouwlqc228Ld TzOON8EDHyzFPxO2RxcF0 yOiAjMDAwMDAw V3XgxLSoTMckE152OHwzF pT9TEPirwAdL8ZyEJVdvV naBpW4l5Z3Ks1GJBA5ftB jmpl0I7DwVimv dHI+HQ93BDUuNT50aEGrl QMok6fucPy7MfOfXNBbWT U8dPolERcgs8WyFBYhZ41 vqIXkt9U2MTFt yEotcLKgNnYksVC1cI3fW Mrqalhig2ksuesuWatfy0 cwsh68bB52V27dBCipTBX oPSIzMCUiIHZh dJpqnj2tbA1tCm5+PGNvb ZH4rIU7hZ0mRfBsDpT6TT nxA385ZhUeiPCxJpibq7x hd8etdJt5KlQe VCDpcbYbqMzzZVS2m1ZsF h01V72fEKuwWZBxDYDfVE IbFTEmnDfobh7jwP3tCb0 +JZ2it6lxsc26 sS51qHH+KJEjDQU9eTxsI OsjWDGcxO1jVPukMgA0UH YuMqQgiQ02cYQxZCpqLn2 lkSpaiVloQN0k BBWqjlbhl869BmPuk4piL GCpuMSuZPzqFVL9G11cv1 K4KTZvAJFmLCW7bRS1iR1 hbGlnbjogbGVm dDsgdmVydGljYWwtYWxpZ 576HIWapQvgGzCfnBHwP5 cxguYLCL4eJwuclVN+PHR hGKX0vCugNKsl ZFRfyR9aMHDyE6m4ZtBfW sH8DYkpZ2WeboE4INVkuE HrKQJfbXPCcR7drdqsw8f vcjogIzAwMDAw DHr9QVy8VZEkcJnfFjXwG CT1IjH6TVV5kBFahZ1ztD adlstpmW2xJhn+RklOOjw vdGQ+PHRkIHN0 vDseAHtvBPSefK8zJLUcE 3e5JjObFrW2AFqwP3Ponv U9TEUwiNMyUCXeaMQXoT7 mnumsu8stdoik OmSwISHtFQo4ICv7RGIis LnbDmYeDYD1UyX0LZL4lR LegL0nlJztypifiU2tZxe +TVJOOjwvdGQ+ QULeUSZ8xYyxAKjhRNOxb R3mAFSoB4c8YhTgRoQ3OE fnU5LjsiU3NBOqlZGbLGK fjSJOqT7cuowe y3zmuaygNvUhGGRiUGt4C Qh0GTMwvVfdHpIlIOU5Hm S8SSX1nRKjfD4jgEyojru srR0eFgh+UGF5 EZJ8XG13UD33I0YaZfexi GFibGU+PHRhYmxlIHdpZH RoPScxMDAlJyBzdHlsZT0 yFm0eXQJrOCRm bGxh (more content not included)... Normal [facility] XR Abdomen Single View (KUB) *on 10-01-2022 XR Abdomen Single View (KUB)* Findings: Gas and stool in colon. Gas in small bowel. No diffuse small bowel dilatation. No mass effect. No abnormal calcifications. Remote bipolar right hip arthroplasty. IMPRESSION: Nonspecific abdomen. No calculi identified. Report reported and signed by Joseph Patten on 10/01/2022 1256 Normal [facility] [employer] Coding Summary.on 08-15-2022 Coding Summary. CD:[id number] G h0bWw+PGhlYWQ+RZ9ESTV zT02ddLTqtO0TO1mEFD3R ZMXLRDPGIF9JQN5zjDR5U OvuJ6ToblWk GvazrCEoZT85YYg8AYU0u XxpZRbnaK5boPKlQ8g4Rk HzYO18hR27LPmbNKFfSgJ 3LjZpbjsgbWFy T5gfKwMelSExHqd+PHRhY mxlIHdpZHRoPScxMDAlJy RbrNgbJU0pVp4pDQZyVVM vbGxhcHNlOiBj u0iaCBYfFSxuVH0xcJmtQ 3GerSM5AOMqa8q3Ea45vZ I+IFDuAIC0gIlcMBbzz42 6KdSzn8trTOX1 lPSsVBhiWHV0L26pi2B3D ZDxKQWhCHZ1vGM9yK8wkU wxmrjkU0ZcrRIpJyA2ELG 6yEMmsP3kuKkp juqqzJ3xHyk+I97ATX1UF XWDSL1CFnj8Q0UpBlmflR I+OG30MDXoDT37xKOaiDV lo8elqXp5QfIp MJEeUVS3yRaiBJgun3PpO BHgA51fnEUyz8T8GOAhdH sqxBOxDtQliCQ8mL6iGKq nyvbmc5scxwnm Htvmj2lldm87bX03A36xJ TdvLMSbUOQ6BUDmHMPorE bcnz4cnA4aSv4+MSuwn0q vs5svdXr5CzRd UGJfrvLpzUsxXIR6l4UsZ w95G8YomFxlt4VdEbs5lw 15lUDmt3O0pZC6LDumTTI ayQ4wSPqpCoD4 HBDsQnRdwD98vBFmVKucJ o2chGzxzLxkKC7gYZXehf jxDTUinF1qHWFtnJYflCo lHK4mHUUdnskw b599ZiLqBMY3ROWaeCEcZ 8OtfJ7nJhAfRMDmMWQwN5 CwpCLeDZejQ925QIlrIkM 8RMZqblNbI9Oc OGJbcBgbRsE6s0Z5Zi7Mz 4VmmmjvMDZ2MRwbPKGyPk M9QcXhQfL7H9PrQor3DPQ upBbiZF7kJ3Qc PPRtzapicznawJF6LRHnJ BSitR21oILqLCwwZl1bb6 N4u686NCTiRJUjrV52Uy2 udDogMTBwdCBU kL5hkggrr9uemqctJqAkJ PCdVWx2IAg0WPYahCmgQt BjOHT4MmR9QBL8kMZttL1 rwJvrpjxcfL6u Oyc+K61qfG3dTCM8HMA5b oktZRZvhwQvQE94JE49V2 RyPjwvdGFibGU+PGRpdiB jlKfwOZ6qDdNk e7bxr8AjSHtsS7EyGLXvF ObaQzi8XIBdERR6zYG8dT 0fYRAsMSrch3C0sXE3I9O etzYivg5nj4mx HDHmQTcwJ53wpXHwe7M4Q AMvsVM6SKSynGrjBvVfxF 93Oyc+DPAqqSqlt5PuWia oh5foy0vjxGd8 ZcMpZOMpsoHsqYqmIVK6c 0RgWp38G05iGYcmHQDhVG PvTKTqJEZwyFhfil6lvZ7 wIi8+PGNvbCB3 oGP7lU2aWFTvEqN0ZKwoI 170NkZcnOZuLajcq0zll4 nbsSd2XpSeTSUhyfCnsFx wWBH2e8FyYg04 S29aKMejVKYaOFGrYLCnW KEeqGnsep1ldM1hZf1+PC 1fn1kxsp69uR77nEI+PHR bIXZ3mUtdWGfv EYYbkE2vLBatAkI9SKKwR hQheX84cPCzLEgeIt4sqB aimIrjQZ6vHXNyulgcg65 2ZnNes1htTVUn sSGjADytWCR8N69ns0Q0Q JBmVWZaCFU4lGQ5dN3ogB lnbjogbGVmdDsgdmVydGl yNItbXThjJ122 IHRvcDsnPlBhdGllbnQgT aZaNNp9T7SlAcd4NUYpqA vuFG3jkBMmHXrhSz6ysPy svXxcSI5tEXKu aspde190JlMnc3jnUZIyt QQpVMeyNOA5C98vr8F4YK ZbMZVbZXD0oIM8sW9nxFx nbjogbGVmdDsg zjMjtJlbHSgbTLdmU507B HRvcDsnPkJpcnRoIERhdG W9YQ91GZ60pCBiu4Q9xEX 9P0EhXHMiruno fhuanNQ0UXAtWFJowK09Q w4ueKpsAb7vDRVxBKT3DX XhtEPpY2GmgF9yEjCoRGH sCWBzI9IheVQv NBhvH968DPmbOjP6VQVjj eCfP8JuGXYoaRyeJuP2t3 V8Fs9WU7J9SV97KI58qCB js2F1tPR4Y2Vg IYXocqixhkoxzHF8RPDwI IQzjP37Fk0otRgcGl5fFL JjFGP2ITPxqTKjW4RfeT1 yOiAjMDAwMDAw A1ChoRNlORbtH051SLxmJ iC3RHCodnImS2TcDISqjL gvYgA1v1I7Ac4ZJYc4RS9 1RZ56wHJmq1S4 hXU0X1WtPDWcaulejbnaz NY2MZIvMKKxxX10Kp5dzK ebVg2fOEJnCPS5YEFbyDQ wB3JkoC5cTqUq TTYdISJkD2EhnZHzMKlwY 624FYqbIzA0RQGuseEsU3 BkHJMcvGysPdC2d7Y9Fr4 ITMWxAL51SKC9 wTF9SS91NS63Z0MlQiazo GFibGU+PHRhYmxlIHdpZH RoPScxMDAlJyBzdHlsZT0 oUa5hPZHtBSMo iCijoZXoWuZam2tzVQAmW HpyXP5cyMvhN2CpiWA1GE Knq7y6Gm28B97fT7VlqUM +TEPhvMJ9sCO9 fA7hItQaCmV3LEqaV681X xBcbVGwUgneu0qjm4pzoR s7GuY1CAByadQzgRrqPJO 0v1HnEk57P74j IHdpZHRoPSIxNSUiIHZhb Bmdzi4tqF0kUi2+PGNvbC V6zFQ7aZ1rIkKsHmB5OAt vC599AgRcyPJk Ffujn3flh6ftlZn2GxApG GNtkvKsePjqIFA8i8AbPe 45X0EthFqqf3HvQmo2iy9 5dGMdi3J9nWW0 Y7HcHOOhcysviOOtbXiwT S6zITPttcqeYMAmaR8qGK WeT7d7KgSgBlC7RUtzW1L ixnX2PHDxjCCi YKxeRXI3I30cv0G1PXEeG SJpZSL7gSX6jR9njBtnpy ogbGVmdDsgdmVydGljYWw vHVntD830TRPe hOxdHFOfnM5yIWChnMHhr FjdLG3eRRUjwbtzBdRXUY cOQhTVK1tqROhGDSqNTJ8 gQzwvdGQ+PHRk BYJ1mEghSYukWRGxlN1cZ WHqA2u9NwZdCpE1BCdsL7 HzHEMblpwuNy58cX2pHuT kEnF5SUgmT7Om wmA0NPCxjTYeXFrhFHV6S 52yr0Y1DTDqGVTsLSQ8rZ R8qV0pcGiuqmqvcEXzmGd gdmVydGljYWwt IVqhL727BNTdrDnyMcK3O iDfOeC0ZlU1M3GtItc2CX IiwQgbBV0ryEDwSUhyEt9 uzRgjvKmmXJ5p WKHyebcjQBEiaL9zIRLhk UVvwQfpHY1sZKSchknrp4 43ZiZzBMC1JGSzcXOkH3L jrU7cNoIcGTKg TSSdL4GabVCpPOdhA991O YtfAmZ2HELughAsJ9GsKH JqtXioPqB9a7L6Qi20XLG ZZWFyczwvdGQ+ JNZcLDI9xSifKApuWNYuq Z8cEVWhC0y9JmNoTwB1KY oyB6JoFYEufjosKl76hI3 oTiAuFkV3LRbg M6QddpN8LCAcxQDdEOezR WH5X45vr8B2SMZsAGWeDI D6zFH8eO1ccZsrwapbyPC mdDsgdmVydGlj ZJpfDJukX384YGWqsTkzF x4krIY8W3OoNwt9LMEhiI vnDV4cjKXyGSchCi1wbYe qhZdfTX5hMDGk hkuzIZPasU3pVVRjnZUqv SixOZ0uOTBfclnfo328Px CqAUL1WCDpjYCdU9CpyK8 yOiAjMDAwMDAw T5ZhvKJuTRwmQ206JIzgV kQ7DECkxaPlK6MbGIWxjY tpCoS0i7U6Or7AwWMbORC cEV06BT23IR97 K6DrMorfxEZawQG+PHRhY mxlIHdpZHRoPScxMDAlJy CtlWyhRA9dRj1jTKMkJCD vbGxhcHNlOiBj o4goKXViCIgqMO8gnUovR 9BwwTX2PHRwb1c1Hz98B6 9sF2UfnYT+UGNpwZP6tOL 4dQ5qQdOgBbF4 OSfhR481SbYkuGFlWlihj 1vpz1fchIh9DoHiCVUnmj OzuPwkWMY4s0IsNb40O38 sIHdpZHRoPSIy DKLgAOBsfMsppr6jqE1pT i8+YUOsrOC7iUB2vL1qHo WfPuQ4XSqjB055SmKesXX sHwsoL41bK0Lw dXA+VXUsYdk6BJGheEvqW X1mfVIjEEwuTx6cWJQ9Ed RjNcEgLNleI2LhJVAxxdq czvegnNH7MQVw UYQdoN11Vn9nbTyhUe8nK VChIPD0PWHnrTEiZ7KmzD 3jVvUfQRNhCQBfR4LdjJD nYDlcM150LFqo XdE0KBOjqoWnY9TxPJXnz PpoLbZ5v0L7Pi3MaCkapV MdEJ7gPoWbOBb5J9IdVyz 2MGZdyPqpXG0l sOUjVTejGd1khSazhLgaH T3aFRYdwdruk409EfDmh7 gfTRPfsYIlGLbdZSB9N69 xn4Z6TVJrOTXc NLI0oYL2hT8trMjqmkxbf GVmdDsgdmVydGljYWwtYW jnI811JQKgzGrsQgRFFyo 5E2MiDgb9RKYp cTftDU7edSTaCVpjPd9wf FmdrKwmHF4uARAhkngxb9 26NkTyy6vlVTVwjECfZJa qTBC3T31za6K9 GCJsLHLkPNV9yPA5oK3ln GlnbjogbGVmdDsgdmVydG vuSVveVXzqZ194TCWyzEm hYq0YNab1F4Xk Ufj2FELhtKrcLY3fgVAuO LibCk6fmNrdgSmeLE9mDQ Ltasbpe077KqWsq6pePAC wcHQgVGltZXM7 A91rx9R6DYRcCZZgPNS6n UM8uT8rrWkvoutttBKvrF rxloQzrLxhUSxkHSraI98 6IHRvcDsnPlBh eWVyOjwvdGQ+BH84px58P 7XhImykUbw5GVLoNUN0kR R3mH4sSGMwBWmvl5U9wTK 3J2FsrkGyrz5h b2xs (more content not included)... Normal [facility] OXALATE 24HR URINEon 022 Oxalates, Urine 15 mg/L Normal Undefined [facility] Comment on above: Performed By: #### P THINT #### [facility] [address] [place] [address] Dr. Noemy Garrett Oxalates, Urine 24hr 45 mg/24 hr Critically high 7-44 [facility] Comment on above: Performed By: #### P THINT #### [facility] [address] [place] [address] Dr. Noemy Garrett CITRATE URINE 24HRon 022 Citric Acid, U, 24hr 480 mg/24 hr Normal 320-1240 [facility] Comment on above: Result Comment: This test was developed and its performance characteristics determined by [facility]. It has not been cleared or approved by the Food and Drug Administration. Performed By: #### C ITRATU #### [facility] [address] [place] [address] Dr. Noemy Garrett Citric Acid, Urine 160 mg/L Normal Undefined [facility] Comment on above: Performed By: #### C ITRATU #### [facility] [address] [place] [address] Dr. Noemy Garrett CHEMISTRYOrdered By: Lab ROP User on 05-01-2022 Glucose [Mass/Vol] 137 mg/dL High 55 - 99 mg/dL FTM C POC Subsection Comment on above: Result Comment: Summer elba Meter POC Device SN [id number] Invalid Interpretation Code FT POC Subsection POC User ID [id number] Invalid Interpretation Code FT POC Subsection POC Username FER FLANNERY Invalid Interpretation Code FT POC Subsection Glucose [Mass/Vol] 130 mg/dL High 55 - 99 mg/dL FTM C POC Subsection Comment on above: Result Comment: Summer elba Meter POC Device SN [id number] Invalid Interpretation Code [facility] POC Subsection POC User ID [id number] Invalid Interpretation Code FT POC Subsection POC Username FER FLANNERY Invalid Interpretation Code [facility] POC Subsection MAGNESIUM 24HR URINEon 05-01 Magnesium 24hr Urine Comment Normal 12.0-293.0 [facility] Comment on above: Result Comment: No t otal volume submitted. Unable to calculate 24 hour result. Performed By: #### P THINT #### [facility] [address] [place] [address] Dr. Noemy Garrett Magnesium UR 3.5 mg/dL Normal Not Estab. [facility] Comment on above: Performed By: #### P THINT #### [facility] [address] [place] [address] Dr. Noemy Garrett PHOSPHORUS 24HR URINEon 04-12 Phosphorus, Urine 22.9 mg/dL Normal Not Estab. [facility] Comment on above: Performed By: #### C IVORY, CL, URIC, NA, CO2, BUN, K, CA #### [facility] [address] [address] [address] Noemy Garrett Phosphorus, Urine 24hr Comment Normal 390-1425 [facility] Comment on above: Result Comment: No t otal volume submitted. Unable to calculate 24 hour result. Performed By: #### C IVORY, CL, URIC, NA, CO2, BUN, K, CA #### [facility] [address] [place] [address] Dr. Noemy Garrett PTH INTACTon 05-01-2022 PTH, Intact 17 pg/mL Normal 15-65 [facility] Comment on above: Performed By: #### P THINT #### [facility] [address] [address] [address] Noemy Garrett URIC ACID 24 HR URINEon 04-12 Uric Acid, Urine 11.2 mg/dL Normal Not Estab. The [facility] Comment on above: Performed By: #### P THINT #### [facility] [address] [address] [address] Noemy Garrett Uric Acid, Urine 24hr Comment Normal 182.4-936.8 [facility] Comment on above: Result Comment: No t otal volume submitted. Unable to calculate 24 hour result. Performed By: #### P THINT #### [facility] [address] [place] [address] Dr. Noemy Garrett BUNon 04-30-2022 Urea nitrogen [Mass/Vol] 21.0 mg/dL Critically high 7.0-18.0 [facility] Comment on above: Performed By: #### C IVORY, CL, URIC, NA, CO2, BUN, K, CA #### [facility] [address] [place] [address] Dr. Noemy Garrett CALCIUMon 04-30-2022 Calcium [Mass/Vol] 9.0 mg/dL Normal 8.5-10.1 [facility] Comment on above: Performed By: #### C IVORY, CL, URIC, NA, CO2, BUN, K, CA #### [facility] [address] [place] [address] Dr. Noemy Garrett CALCIUM 24 HR URINEon 2021 CALC, 24 HR UR 69.0 mg/24 hr Critically low 100.0-300.0 [facility] Comment on above: Performed By: #### P THINT #### [facility] [address] [place] [address] Dr. Noemy Garrett UR CALCIUM 2.3 mg/dL Critically low 5.1-21.0 [facility] Comment on above: Performed By: #### P THINT #### [facility] [address] [place] [address] Dr. Noemy Garrett CHLORIDEon 04-30-2022 Chloride [Moles/Vol] 105 mmol/L Normal 98-107 [facility] Comment on above: Performed By: #### C IVORY, CL, URIC, NA, CO2, BUN, K, CA #### [facility] [address] [place] [address] Dr. Noemy Garrett CO2on 04-30-2022 CO2 [Moles/Vol] 23.6 mmol/L Normal 21.0-32.0 [facility] Comment on above: Performed By: #### C IVORY, CL, URIC, NA, CO2, BUN, K, CA #### [facility] [address] [place] [address] Dr. Noemy Garrett CREA 24 HR URINEon 2 CREA, 24 HR UR 1733.10 mg/24 hr Normal 1,000.00- 2,00 0.00 [facility] Comment on above: Performed By: #### P THINT #### [facility] [address] [place] [address] Dr. Noemy Garrett UR TOT VOL 3000 ml/[address] [facility] Comment on above: Performed By: #### P THINT #### [facility] [address] [place] [address] Dr. Noemy Garrett URINE CREAT 57.77 mg/dL Normal 20.00-300.00 [facility] Comment on above: Performed By: #### P THINT #### [facility] [address] [place] [address] Dr. Noemy Garrett CREATININEon 04-30-2022 Creatinine [Mass/Vol] 1.17 mg/dL Normal 0.70-1.30 [facility] Comment on above: Performed By: #### C IVORY, CL, URIC, NA, CO2, BUN, K, CA #### [facility] [address] [place] [address] Dr. Noemy Garrett EGFR-AF NIGERIAN >60 Normal >=[address] [facility] Comment on above: Performed By: #### C IVORY, CL, URIC, NA, CO2, BUN, K, CA #### [facility] [address] [place] [address] Dr. Noemy Garrett EGFR-NON AF NIGERIAN >60 Normal >=60 [facility] Comment on above: Performed By: #### C IVORY, CL, URIC, NA, CO2, BUN, K, CA #### [facility] [address] [place] [address] Dr. Noemy Garrett NAon 04-30-2022 Sodium [Moles/Vol] 137 mmol/L Normal 136-145 [facility] Comment on above: Performed By: #### C IVORY, CL, URIC, NA, CO2, BUN, K, CA #### [facility] [address] [place] [address] Dr. Noemy Garrett POTASSIUMon 04-30-2022 Potassium [Moles/Vol] 5.1 mmol/L Normal 3.5-5.1 [facility] Comment on above: Performed By: #### C IVORY, CL, URIC, NA, CO2, BUN, K, CA #### [facility] [address] [place] [address] Dr. Noemy Garrett SODIUM 24 HR URINEon 022 NA, 24 HR UR 138 mmol/24 hr Normal 40-220 [facility] Comment on above: Performed By: #### P THINT #### [facility] [address] [place] [address] Dr. Noemy Garrett Sodium (U) [Moles/Vol] 46 mmol/L Normal 30-90 [facility] Comment on above: Performed By: #### P THINT #### [facility] [address] [place] [address] Dr. Noemy Garrett URIC ACID SERUMon 04-30-2022 Urate [Mass/Vol] 7.2 mg/dL Normal 3.5-7.2 [facility] Comment on above: Performed By: #### C IVORY, CL, URIC, NA, CO2, BUN, K, CA #### [facility] [address] [place] [address] Dr. Noemy Garrett CHEMISTRYOrdered By: Lab ROP User on 04-26-2022 Glucose [Mass/Vol] 163 mg/dL High 55 - 99 mg/dL FT C POC Subsection Comment on above: Result Comment: Summer elba Meter POC Device SN [id number] Invalid Interpretation Code [facility] POC Subsection POC User ID [id number] Invalid Interpretation Code [facility] POC Subsection POC Username FER FLANNERY Invalid Interpretation Code [facility] POC Subsection XR KUB 1 VIEWon 04-26-2022 XR KUB 1 VIEW EXAMINATION: XR KUB 1 VIEW HISTORY: Kidney stone COMPARISON: No relevant comparison available. FINDINGS: KIDNEY/URETER - RIGHT: No visible renal or ureteral calcifications. KIDNEY/URETER - LEFT: No visible renal or ureteral calcifications. PELVIS: No visible ureteral calcifications. Any visible calcifications favor phleboliths. BOWEL: No abnormal dilation or deviation. BONES: No acute abnormality. Mild degenerative changes. Right hip arthroplasty OTHER: Negative. No abnormal gaseous collections. IMPRESSION: No definite urinary tract calculi Electronically authenticated by: ANAM LESLIE Date: 2022-04-26 16:41 Normal [facility] XR KUB 1 VIEWon 02-27-2022 XR KUB 1 VIEW EXAMINATION: XR KUB 1 VIEW HISTORY: Kidney stone on left COMPARISON: XR KUB 12/03/2021 FINDINGS: KIDNEY/URETER - RIGHT: No visible renal or ureteral calcifications. KIDNEY/URETER - LEFT: Left ureteral stent has been removed. No visible renal or ureteral calcifications. PELVIS: No visible ureteral calcifications. Stable calcification in the caudal margin of right sacroiliac joints favoring the phleboliths.. BOWEL: No abnormal dilation or deviation. BONES: Right hip replacement. No acute abnormality. OTHER: Negative. No abnormal gaseous collections. IMPRESSION: 1. No visible urinary tract calculi. 2. Interval removal of left ureteral stent. Electronically authenticated by: GEENA MENJIVAR Date: 2022-02-27 21:01 Normal [facility] CALCULI, URINARYon 2 2,8 Dihydroxyadenine Normal [facility] Comment on above: Performed By: #### P THINT #### [facility] [address] [place] [address] Dr. Noemy Garrett Ammonium Acid Urate Normal [facility] Comment on above: Performed By: #### P THINT #### [facility] [address] [address] [address] Noemy Garrett Bilirubin Ql (U) Normal [facility] Comment on above: Performed By: #### P THINT #### [facility] [address] [address] [address] Noemy Garrett Ca Oxalate Dihydrate Normal [facility] Comment on above: Performed By: #### P THINT #### [facility] [address] [address] [address] Noemy Garrett CaHPO4 (Brushite) [facility] Comment on above: Performed By: #### P THINT #### [facility] [address] [address] [address] Noemy Garrett Calcium Bilirubinate [facility] Comment on above: Performed By: #### P THINT #### [facility] [address] [address] [address] Noemy Garrett Calcium Carbonate [facility] Comment on above: Performed By: #### P THINT #### [facility] [address] [address] [address] Noemy Garrett Calcium Oxalate Monohydrate [facility] Comment on above: Performed By: #### P THINT #### [facility] [address] [address] [address] Noemy Garrett Calcium Palmitate [facility] Comment on above: Performed By: #### P THINT #### [facility] [address] [address] [address] Noemy Garrett Calcium Phosphate Normal [facility] Comment on above: Performed By: #### P THINT #### [facility] [address] [address] [address] Noemy Garrett Calcium Stearate [facility] Comment on above: Performed By: #### P THINT #### [facility] [address] [address] [address] Noemy Garrett Carbonate Apatite [facility] Comment on above: Performed By: #### P THINT #### [facility] [address] [address] [address] Noemy Garrett Cellular Material [facility] Comment on above: Performed By: #### P THINT #### [facility] [address] [place] [address] Dr. Noemy Garrett Cholesterol [facility] Comment on above: Performed By: #### P THINT #### [facility] [address] [place] [address] Dr. Noemy Garrett Color (U) [place] Normal [facility] Comment on above: Performed By: #### P THINT #### [facility] [address] [address] [address] Noemy Garrett Comment Normal [facility] Comment on above: Performed By: #### P THINT #### [facility] [address] [place] [address] Dr. Noemy Garrett Comment Comment [facility] Comment on above: Result Comment: Calc ulus received in liquid. Wet calculi must be dried before analysis, which delays reporting of results. Leaving calculi in liquid (such as water, saline, blood, urine) may lead to changes in composition. Performed By: #### P THINT #### [facility] [address] [place] [address] Dr. Noemy Garrett Comment: Comment Normal [facility] Comment on above: Result Comment: Sara ugalde questions regarding Calculi Analysis contact [facility] at: [phone]. Performed By: #### P THINT #### [facility] [address] [place] [address] Dr. Noemy Garrett Composition Comment [facility] Comment on above: Result Comment: Perc entage (Represents the % composition) Performed By: #### P THINT #### [facility] [address] [place] [address] Dr. Noemy Garrett Cystine [facility] Comment on above: Performed By: #### P THINT #### [facility] [address] [place] [address] Dr. Noemy Garrett Disclaimer: Comment [facility] Comment on above: Result Comment: This test was developed and its performance characteristics determined by [facility]. It has not been cleared or approved by the Food and Drug Administration. Performed By: #### P THINT #### [facility] [address] [address] [address] Noemy Garrett Dried Blood [facility] Comment on above: Performed By: #### P THINT #### [facility] [address] [address] [address] Noemy Garrett Drug or Metabolite Normal [facility] Comment on above: Performed By: #### P THINT #### [facility] [address] [address] [address] Noemy Garrett Hydroxyapatite [facility] Comment on above: Performed By: #### P THINT #### [facility] [address] [address] [address] Noemy Garrett Mg NH4 PO4 (Struvite) [facility] Comment on above: Performed By: #### P THINT #### [facility] [address] [address] [address] Noemy Garrett MgHPO4 (Newberyite) Normal [facility] Comment on above: Performed By: #### P THINT #### [facility] [address] [address] [address] Noemy Garrett Other component(s) Normal [facility] Comment on above: Performed By: #### P THINT #### [facility] [address] [address] [address] Noemy Garrett PDF . Normal [facility] Comment on above: Performed By: #### P THINT #### [facility] [address] [address] [address] Noemy Garrett Photo Comment Normal [facility] Comment on above: Result Comment: Phot ograph will follow under a separate cover Performed By: #### P THINT #### [facility] [address] [address] [address] Noemy Garrett Please note: Comment Normal [facility] Comment on above: Result Comment: Calc mary report will follow via computer, mail or monomer recovery supervisor delivery. Performed By: #### P THINT #### [facility] [address] [address] [address] Noemy Garrett Size 2x2 [facility] Comment on above: Result Comment: Mult iple pieces received. Dimensions of the largest piece reported. Performed By: #### P THINT #### [facility] [address] [address] [address] Noemy Garrett Sodium Acid Urate Normal [facility] Comment on above: Performed By: #### P THINT #### [facility] [address] [place] [address] Dr. Noemy Garrett Source Comment [facility] Comment on above: Result Comment: Left Ureter Performed By: #### P THINT #### [facility] [address] [place] [address] Dr. Noemy Garrett Triamterene [facility] Comment on above: Performed By: #### P THINT #### [facility] [address] [place] [address] Dr. Noemy Garrett Uric Acid 100 % [facility] Comment on above: Performed By: #### P THINT #### [facility] [address] [place] [address] Dr. Noemy Garrett Uric Acid Dihydrate Normal [facility] Comment on above: Performed By: #### P THINT #### [facility] [address] [place] [address] Dr. Noemy Garrett Weight 15 mg [facility] Comment on above: Performed By: #### P THINT #### [facility] [address] [place] [address] Dr. Noemy Garrett Xanthine [facility] Comment on above: Performed By: #### P THINT #### [facility] [address] [place] [address] Dr. Noemy Garrett POINT OF CARE GLUCOSEon 07-0 Glucose [Mass/Vol] 119 mg/dL Critically high 74-106 T [facility] Comment on above: Performed By: #### C IVORY, CL, URIC, NA, CO2, BUN, K, CA #### [facility] [address] [place] [address] Dr. Noemy Garrett Glucose [Mass/Vol] 149 mg/dL Critically high 74-106 T [facility] Comment on above: Performed By: #### P THINT #### [facility] [address] [place] [address] Dr. Noemy Garrett CBC AUTO DIFFon 02-04-2022 BASO # 0.0 103/ul Normal 0.0-0.1 [facility] Comment on above: Performed By: #### P THINT #### [facility] [address] [place] [address] Dr. Noemy Garrett Basophils/100 WBC (Bld) 0.6 % Normal 0.2-2.0 [facility] Comment on above: Performed By: #### P THINT #### [facility] [address] [place] [address] Dr. Noemy Garrett EO # 0.2 103/ul Normal 0.0-0.7 [facility] Comment on above: Performed By: #### P THINT #### [facility] [address] [place] [address] Dr. Noemy Garrett Eosinophils/100 WBC (Bld) 4.3 % Normal 0.9-7.0 [facility] Comment on above: Performed By: #### P THINT #### [facility] [address] [place] [address] Dr. Noemy Garrett Erythrocyte distribution width (RBC) [Ratio] 14.0 % Normal 11.0-15.0 [facility] Comment on above: Performed By: #### P THINT #### [facility] [address] [place] [address] Dr. Noemy Garrett Hematocrit (Bld) [Volume fraction] 36.3 % Critically low 42.0-54.0 [facility] Comment on above: Performed By: #### P THINT #### [facility] [address] [place] [address] Dr. Noemy Garrett Hemoglobin (Bld) [Mass/Vol] 11.7 g/dL Critically low 14.0-18.0 [facility] Comment on above: Performed By: #### P THINT #### [facility] [address] [address] [address] Noemy Garrett IG # 0.01 10e3/ul Normal 0.00-0.03 [facility] Comment on above: Performed By: #### P THINT #### [facility] [address] [place] [address] Dr. Noemy Garrett IG % 0.2 % Normal 0.0-0.5 [facility] Comment on above: Performed By: #### P THINT #### [facility] [address] [place] [address] Dr. Noemy Garrett LYMPH # 1.4 103/ul Normal 1.2-3.8 [facility] Comment on above: Performed By: #### P THINT #### [facility] [address] [place] [address] Dr. Noemy Garrett Lymphocytes/100 WBC (Bld) 26.9 % Normal 20.5-60.0 [facility] Comment on above: Performed By: #### P THINT #### [facility] [address] [place] [address] Dr. Noemy Garrett MANUAL DIFF REQ NO Normal [facility] Comment on above: Performed By: #### P THINT #### [facility] [address] [place] [address] Dr. Noemy Garrett MCH (RBC) [Entitic mass] 29.7 pg Normal 25.9-34.0 [facility] Comment on above: Performed By: #### P THINT #### [facility] [address] [place] [address] Dr. Noemy Garrett MCHC (RBC) [Mass/Vol] 32.2 g/dL Normal 29.9-35.2 [facility] Comment on above: Performed By: #### P THINT #### [facility] [address] [place] [address] Dr. Noemy Garrett MCV (RBC) [Entitic vol] 92.1 fL Normal 80.0-94.0 [facility] Comment on above: Performed By: #### P THINT #### [facility] [address] [place] [address] Dr. Noemy Garrett MONO # 0.4 103/ul Normal 0.3-0.8 [facility] Comment on above: Performed By: #### P THINT #### [facility] [address] [address] [address] Noemy Garrett Monocytes/100 WBC (Bld) 7.9 % Normal 1.7-12.0 [facility] Comment on above: Performed By: #### P THINT #### [facility] [address] [address] [address] Noemy Garrett NEUT # 3.1 103/ul Normal 1.4-6.5 [facility] Comment on above: Performed By: #### P THINT #### [facility] [address] [place] [address] Dr. Noemy Garrett Neutrophils/100 WBC (Bld) 60.1 % Normal 43.0-75.0 [facility] Comment on above: Performed By: #### P THINT #### [facility] [address] [place] [address] Dr. Noemy Garrett Platelet mean volume (Bld) [Entitic vol] 10.7 fL Normal 9.5-13.5 [facility] Comment on above: Performed By: #### P THINT #### [facility] [address] [place] [address] Dr. Noemy Garrett PLT 202 103/ul Normal 150-450 [facility] Comment on above: Performed By: #### P THINT #### [facility] [address] [address] [address] Noemy Garrett RBC 3.94 106/ul Critically low 4.70-6.10 [facility] Comment on above: Performed By: #### P THINT #### [facility] [address] [place] [address] Dr. Noemy Garrett WBC 5.2 103/ul Normal 4.0-11.0 [facility] Comment on above: Performed By: #### P THINT #### [facility] [address] [place] [address] Dr. Noemy Garrett PROF CHEM 8 (BAS METB)on Anion gap [Moles/Vol] 13.9 mmol/L Normal [facility] Comment on above: Performed By: #### P THINT #### [facility] [address] [place] [address] Dr. Noemy Garrett Calcium [Mass/Vol] 9.0 mg/dL Normal 8.5-10.1 [facility] Comment on above: Performed By: #### P THINT #### [facility] [address] [address] [address] Noemy Garrett Chloride [Moles/Vol] 109 mmol/L Critically high 98-107 [facility] Comment on above: Performed By: #### P THINT #### [facility] [address] [place] [address] Dr. Noemy Garrett CO2 [Moles/Vol] 21.3 mmol/L Normal 21.0-32.0 [facility] Comment on above: Performed By: #### P THINT #### [facility] [address] [place] [address] Dr. Noemy Garrett Creatinine [Mass/Vol] 1.09 mg/dL Normal 0.70-1.30 [facility] Comment on above: Performed By: #### P THINT #### [facility] [address] [place] [address] Dr. Noemy Garrett EGFR-AF NIGERIAN >=60 Normal >=[address] [facility] Comment on above: Performed By: #### P THINT #### [facility] [address] [place] [address] Dr. Noemy Garrett EGFR-NON AF NIGERIAN >=60 Normal >=60 [facility] Comment on above: Performed By: #### P THINT #### [facility] [address] [place] [address] Dr. Noemy Garrett Glucose [Mass/Vol] 150 mg/dL Critically high 74-106 [facility] Comment on above: Performed By: #### P THINT #### [facility] [address] [place] [address] Dr. Noemy Garrett Potassium [Moles/Vol] 5.2 mmol/L Critically high 3.5-5.1 [facility] Comment on above: Performed By: #### P THINT #### [facility] [address] [place] [address] Dr. Noemy Garrett Sodium [Moles/Vol] 139 mmol/L Normal 136-145 [facility] Comment on above: Performed By: #### P THINT #### [facility] [address] [address] [address] Noemy Garrett Urea nitrogen [Mass/Vol] 17.0 mg/dL Normal 7.0-18.0 [facility] Comment on above: Performed By: #### P THINT #### [facility] [address] [place] [address] Dr. Noemy Garrett Urea nitrogen/Creatinine [Mass ratio] 15.6 mg/mg Normal [facility] Comment on above: Performed By: #### P THINT #### [facility] [address] [place] [address] Dr. Noemy Grarett PROTIMEon 02-04-2022 INR Coag (PPP) [Relative time] 0.95 {INR} Normal [facility] Comment on above: Performed By: #### C IVORY, CL, URIC, NA, CO2, BUN, K, CA #### [facility] [address] [place] [address] Dr. Noemy Garrett INR GUIDELINES SEE BELOW Normal [facility] Comment on above: Result Comment: KIMBERLY RED INR: 2.0 - 3.0 CONDITIONS NOT LISTED BELOW 2.5 - 3.5 FOR PROSTHETIC HEART VALVE REPLACEMENT 2.5 - 3.5 RECURRENT THROMBOSIS Performed By: #### C IVORY, CL, URIC, NA, CO2, BUN, K, CA #### [facility] [address] [place] [address] Dr. Noemy Garrett PT Coag (PPP) [Time] 10.3 s Normal 9.0-11.6 [facility] Comment on above: Performed By: #### C IVORY, CL, URIC, NA, CO2, BUN, K, CA #### [facility] [address] [address] [address] Noemy Garrett PTTon 02-04-2022 aPTT Coag (Bld) [Time] 28.0 s Normal 22.3-36.2 [facility] Comment on above: Performed By: #### C IVORY, CL, URIC, NA, CO2, BUN, K, CA #### [facility] [address] [address] [address] Noemy Garrett Blood Urea Nitrogenon 2021 Urea nitrogen [Mass/Vol] 11 mg/dL Normal 9-23 [facility] Comment on above: Performed By: #### A 1C [facility] #### [facility] [address] COVID-19 Antigenon 2 COVID-19 Antigen Healthcare Worker?: N Reference Range: Negative Negative results, from patients with symptom onset beyond five days, should be treated as presumptive and confirmation with a molecular assay, if necessary, for patient management, may be performed. Negative results do not rule out COVID-19 and should not be used as the sole basis for treatment or patient management decisions, including infection control decisions. Negative results should be considered in the context of a patient's recent exposures, history and the presence of clinical signs and symptoms consistent with COVID-19. The Zuleyka SARS Antigen ELIDA does not differentiate between SARS-CoV and SARS-CoV-2. This test was developed and its performance characteristic determined by [employer] and validated at [facility]. This test has not been FDA cleared or approved. This test has been authorized by FDA under an Emergency Use Authorization (EUA). This test has been validated in accordance with the FDA's Guidance Document (Policy for Diagnostics Testing in Laboratories Certified to Perform High Complexity Testing under CLIA prior to Emergency Use Authorization for Coronavirus Disease-2019 during the Public Health Emergency) issued on November 11, 2019. This test is only authorized for the duration of time the declaration that circumstances exist justifying the authorization of the emergency use of in vitro diagnostic tests for detection of SARS-CoV-2 virus and/or diagnosis of COVID-19 infection under section 564(b)(1) of the Act, 21 U.S.C. 360bbb-3(b)(1), unless the authorization is terminated or revoked sooner. SARS-CoV+SARS-CoV-2 (COVID-19) Ag [Presence] in Respiratory specimen by Rapid immunoassay Negative for SARS Antigen by ELIDA PERFORMED BY: [place] [address] PATHOLOGIST LANGUAGES AND LITERATURE INSTRUCTOR RUDY MARIANO M.D. Normal [facility] Comment on above: Performed By: #### B PROCESSING REP #### [address] Coagulation Profileon 2021 aPTT Coag (Bld) [Time] 39.2 s High 25.1-36.5 [facility] Comment on above: Result Comment: PERF ORMED BY: [place] [address] PATHOLOGIST LANGUAGES AND LITERATURE INSTRUCTOR RUDY MARIANO M.D. Performed By: #### A 1C [facility] eA #### [address] INR Coag (PPP) [Relative time] 1.0 {INR} Normal [facility] Comment on above: Result Comment: INR Therapeutic Range A) Pre- and Peroperative OAT started two weeks before surgery. NOT HIP SURGERY: 1.5 - 2.5 HIP SURGERY: 2 - 3 B) Primary and secondary prevention of venous THROMBOSIS: 2 - 3 C) Active venous thrombosis, pulmonary embolism and prevention of recurrent venous thrombosis: 2 - 3 D) Prevention of arterial thromboembolism including patients with mechanical heart valves: 3 - 4.5 Performed By: #### A 1C [facility] eA #### [address] PT Coag (PPP) [Time] 11.1 s Normal 9.0-12.9 [facility] Comment on above: Performed By: #### A 1C [facility] eA #### [address] Complete Blood Count Auto Di ffon 01-01-2022 Basophils (Bld) [#/Vol] 0.0 10*3/uL Normal 0.0-0.2 [facility] Comment on above: Result Comment: PERF ORMED BY: [place] [address] PATHOLOGIST LANGUAGES AND LITERATURE INSTRUCTOR RUDY MARIANO M.D. Performed By: #### A 1C WT eA #### [facility] [address] Basophils/100 WBC (Bld) 0.6 % Normal . [facility] Comment on above: Performed By: #### A 1C WT eA #### [address] Eosinophils (Bld) [#/Vol] 0.4 10*3/uL Normal 0.0-0.45 [facility] Comment on above: Performed By: #### A 1C WT eA #### [address] Eosinophils/100 WBC (Bld) 8.4 % Normal . [facility] Comment on above: Performed By: #### A 1C WT eA #### [address] Erythrocyte distribution width (RBC) [Ratio] 13.8 % Normal 12.0-14.8 [facility] Comment on above: Performed By: #### A 1C WT eA #### [address] Hematocrit (Bld) [Volume fraction] 37.4 % Low 38.8-50.0 [facility] Comment on above: Performed By: #### A 1C WT eA #### [address] Hemoglobin (Bld) [Mass/Vol] 12.3 g/dL Low 13.0-17.0 [facility] Comment on above: Performed By: #### A 1C WT eA #### [address] Lymphocytes (Bld) [#/Vol] 1.5 10*3/uL Normal 1.00-4.8 [facility] Comment on above: Performed By: #### A 1C WT eA #### [facility] [address] Lymphocytes/100 WBC (Bld) 29.4 % Normal . [facility] Comment on above: Performed By: #### A 1C [facility] eA #### [facility] [address] MCH (RBC) [Entitic mass] 29.7 pg Normal 27.5-35.2 [facility] Comment on above: Performed By: #### A 1C [facility] eA #### [address] MCV (RBC) [Entitic vol] 90.0 fL Normal 83.5-101 [facility] Comment on above: Performed By: #### A 1C [facility] eA #### [address] Mean Corpuscular HGB Conc 33.0 g/dL Normal 32.5-35.6 [facility] Comment on above: Performed By: #### A 1C [facility] #### [place] [address] [place] Monocytes (Bld) [#/Vol] 0.4 10*3/uL Normal 0.0-0.8 [facility] Comment on above: Performed By: #### A 1C [facility] #### [place] [address] [place] Monocytes/100 WBC (Bld) 6.9 % Normal . [facility] Comment on above: Performed By: #### A 1C [facility] eA #### [address] Neutrophils (Bld) [#/Vol] 2.8 10*3/uL Normal 1.8-7.7 [facility] Comment on above: Performed By: #### A 1C [facility] e[facility] #### [address] Neutrophils/100 WBC (Bld) 54.7 % Normal . [facility] Comment on above: Performed By: #### A 1C [facility] eA #### [address] [address] [place] Nucleated RBC/100 WBC (Bld) [Ratio] 0.2 % Normal 0-0.5 [facility] Comment on above: Performed By: #### A [facility] eA #### [address] Platelet mean volume (Bld) [Entitic vol] 8.9 fL Normal 6.6-10.1 [facility] Comment on above: Performed By: #### A 1C [facility] eA #### [address] Platelets (Bld) [#/Vol] 231 10*3/uL Normal 150-450 [facility] Comment on above: Performed By: #### A [facility] eA #### [address] RBC (Bld) [#/Vol] 4.15 10*6/uL Normal 3.90-5.60 [facility] Comment on above: Performed By: #### A [facility] e[facility] #### [address] WBC (Bld) [#/Vol] 5.1 10*3/uL Normal 4.5-11.0 [facility] Comment on above: Performed By: #### A [facility] e[facility] #### [address] Creatinineon 01-01-2022 Creatinine [Mass/Vol] 1.09 mg/dL Normal 0.64-1.27 [facility] Comment on above: Performed By: #### A [facility] e[facility] #### [address] Estimated GFR ( Isabelle > [address] [facility] Comment on above: Result Comment: GFR estimated reference range: According to KDOQI guidelines, <60 ml/min/1.73m2 is sufficient to diagnose a patient with chronic kidney disease. Performed By: #### A 1C [facility] e[facility] #### [address] Estimated GFR (Non- Am > 60 [facility] Comment on above: Performed By: #### A 1C WT eA #### [facility] [address] [place] [address] [place] ECG 12 lead ECGon 01-01-2022 ECG 12 lead ECG [facility] [address] [place] [address] [place] [address] Electrocardiograph Report Signed Patient: Everette George MR#: [id number] : 1960 Acct:[id number] Age/Sex: 61 / M ADM Date: 01/01/22 Loc: Room: Type: [facility] Attending Dr: Lani Luevano DO Ordering Provider: Lani Luevano DO Date of Service: 01/01/22 ECG/ECG 12 lead ECG: cardiac cath Copies to: Test Reason : Blood Pressure : / mmHG Vent. Rate : 072 BPM Atrial Rate : 072 BPM P-R Int : 186 ms QRS Dur : 078 ms QT Int : 368 ms P-R-T Axes : 051 -15 049 degrees QTc Int : 402 ms Normal sinus rhythm Low voltage QRS Borderline ECG When compared with ECG of 22-NOV-2021 07:24, ST no longer depressed in Inferior leads T wave inversion no longer evident in Inferior leads T wave inversion no longer evident in Anterolateral leads QT has shortened Confirmed by RESHMA ACEVEDO, ISHAN (Formerly [facility], [facility]) on 01/01/2022 10:43:18 AM Referred By: CHIRAG LUEVANO Electronically Signed By:ISHAN JUSTICE MD Transcribed By: MUS Signed By Ishan Justice MD 0 01/01/[address] [facility] Electrolyteson 01-01-2022 Chloride [Moles/Vol] 106 mmol/L Normal 95-114 [facility] Comment on above: Performed By: #### A 1C WT eA #### [facility] [address] [id number] [place] CO2 [Moles/Vol] 21.1 mmol/L Low 22.0-30.0 [facility] Comment on above: Performed By: #### A 1C WT eA #### [facility] [address] [place] [address] [facility] Potassium [Moles/Vol] 4.5 mmol/L Normal 3.5-5.1 [facility] Comment on above: Performed By: #### A 1C [facility] eA #### [facility] [address] [place] [address] [facility] Sodium [Moles/Vol] 139 mmol/L Normal 136-146 [facility] Comment on above: Performed By: #### A 1C [facility] eA #### [facility] [address] [place] [address] [facility] Laboratory - Chemistry and C hemistry - challengeon 01-01-2022 Cholesterol [Mass/Vol] 94\S\94 below low threshold 140-200 [facility] 250 DO Work Phone: Comment on above: Chol less than 200 m g/dl low risk Chol 201-239 mg/dl borderline risk Chol 240 mg/dl and greater high risk Cholesterol in LDL [Mass/Vol] 37\S\37 Normal 0-100 [facility] 250 DO Work Phone: Comment on above: LDL ATP III CLASSIFI CATION LDL less than 100 mg/dL Optimal LDL 100-129 mg/dL Near or above optimal LDL 130-159 mg/dL Borderline high LDL 160-189 mg/dL High LDL greater than 189 mg/dL Very high Laboratory - Microbiology an d Antimicrobial susceptibilityon 01-01-2022 SARS-CoV-2 (COVID-19) RNA JO ANN+probe Ql (Unsp spec) [facility] 250 DO Work Phone: Lipid Panelon 01-01-2022 Cholesterol [Mass/Vol] 94 mg/dL Low 140-200 [facility] Comment on above: Result Comment: Chol less than 200 mg/dl low risk Chol 201-239 mg/dl borderline risk Chol 240 mg/dl and greater high risk Performed By: #### A 1C [facility] e[facility] #### [facility] [address] [place] [address] [facility] Cholesterol in HDL [Mass/Vol] 32 mg/dL Normal 29-71 [facility] Comment on above: Result Comment: HDL CHOL ATP-III CLASSIFICATION Cardiovascular Risk HDL > or equal to 60 mg/dL LOW HDL < 40 mg/dL HIGH Performed By: #### A 1C [facility] e[facility] #### [address] Cholesterol.total/Ch olesterol in HDL [Mass ratio] 2.9 {ratio} Normal <5.0 [facility] Comment on above: Result Comment: PERF ORMED BY: [place] [address] PATHOLOGIST LANGUAGES AND LITERATURE INSTRUCTOR RUDY MARIANO M.D. Performed By: #### A 1C [facility] e[facility] #### [address] LDL Cholesterol,Calculat ed 37 mg/dL Normal 0-100 [facility] Comment on above: Result Comment: LDL ATP III CLASSIFICATION LDL less than 100 mg/dL Optimal LDL 100-129 mg/dL Near or above optimal LDL 130-159 mg/dL Borderline high LDL 160-189 mg/dL High LDL greater than 189 mg/dL Very high Performed By: #### A [facility] e[facility] #### [address] Triglyceride w/Reflex 123 mg/dL Normal 35-149 [facility] Comment on above: Result Comment: TRIG ATP III CLASSIFICATION TRIG less than 150 mg/dL Normal TRIG 150-199 mg/dL Borderline high TRIG 200-500 mg/dL High TRIG greater than 500 mg/dL Very high Standard traceable to the Center for Disease Conrtrol and Prevention (CDC) test method. Performed By: #### A 1C [facility] e[facility] #### [address] VLDL CHOLESTEROL 24 mg/dL Normal [facility] Comment on above: Performed By: #### A 1C [facility] e[facility] #### [address] No Panel Informationon 01-01 54.7\S\54.7 Normal . [facility] 250 DO Work Phone: 8.9\S\8.9 Normal 6.6-10.1 [facility] 250 DO Work Phone: 231\S\231 Normal 150-450 [facility] 250 DO Work Phone: 13.8\S\13.8 Normal 12.0-14.8 [facility] 250 DO Work Phone: 33.0\S\33.0 Normal 32.5-35.6 [facility] 250 DO Work Phone: 29.7\S\29.7 Normal 27.5-35.2 [facility] 250 DO Work Phone: 2.8\S\2.8 Normal 1.8-7.7 [facility] 250 DO Work Phone: 0.2\S\0.2 Normal 0-0.5 [facility] 250 DO Work Phone: 0.6\S\0.[address] [facility] 250 DO Work Phone: 8.4\S\8.[address] [facility] 250 DO Work Phone: 6.9\S\6.[address] [facility] 250 DO Work Phone: 29.4\S\29.[address] [facility] 250 DO Work Phone: 0.0\S\0.0 Normal 0.0-0.2 [facility] 250 DO Work Phone: Comment on above: PERFORMED BY:[address] [address] [address] [place] [phone] MEDICAL DIRECTORRUDY MARIANO M.D. 0.4\S\0.4 Normal 0.0-0.8 [facility] 250 DO Work Phone: [phone] 1.5\S\1.5 Normal 1.00-4.8 [facility] 250 DO Work Phone: [phone] 90.0\S\90.0 Normal 83.5-101 [facility] 250 DO Work Phone: [phone] 37.4\S\37.4 below low threshold 38.8-50.0 [facility] 250 DO Work Phone: [phone] 12.3\S\12.3 below low threshold 13.0-17.0 [facility] 250 DO Work Phone: [phone] 4.15\S\4.15 Normal 3.90-5.60 [facility] alexis 250 DO Work Phone: [phone] 5.1\S\5.1 Normal 4.1-10.5 [facility] alexis 250 DO Work Phone: [phone] 39.2\S\39.2 above high threshold 25.1-36.5 [facility] alexis 250 DO Work Phone: [phone] Comment on above: PERFORMED BY:[address] [address] [address] [place], [place] [phone] MEDICAL DIRECTORRUDY MARIANO M.D. 1.0\S\1.[address] [facility] Lorie alexis 250 DO Work Phone: Comment on above: INR Therapeutic Rang e A) Pre- and Peroperative OAT started two weeks before surgery. NOT HIP SURGERY: 1.5 - 2.5 HIP SURGERY: 2 - 3 B) Primary and secondary prevention of venous THROMBOSIS: 2 - 3 C) Active venous thrombosis, pulmonary embolism and prevention of recurrent venous thrombosis: 2 - 3 D) Prevention of arterial thromboembolism including patients with mechanical heart valves: 3 - 4.5 11.1\S\11.1 Normal 9.0-12.9 [facility] 250 DO Work Phone: [phone] Negative Normal Negative -[facility] 250 DO Work Phone: [phone] Comment on above: This is a duplicate Zuleyka SARS Antigen (ELIDA) result to be used for statistical tracking purpose only.PERFORMED BY:[facility] [place], [place] [phone] MEDICAL DIRECTORRUDY MARIANO M.D. 21.1\S\21.1 below low threshold 22.0-30.0 -[facility] 250 DO Work Phone: [phone] 106\S\106 Normal 95-114 [facility] 250 DO Work Phone: [phone] 4.5\S\4.5 Normal 3.5-5.1 -[facility] 250 DO Work Phone: [phone] 139\S\139 Normal 136-146 -[facility] 250 DO Work Phone: [phone] 11\S\11 Normal 9-23 -[facility] 250 DO Work Phone: [phone] > 60 Normal -[facility] 250 DO Work Phone: [phone] Comment on above: GFR estimated refere nce range: According to KDOQI guidelines, <60 ml/min/1.73m2 is sufficient to diagnose a patient with chronic kidney disease. 1.09\S\1.09 Normal 0.64-1.27 -[facility] 250 DO Work Phone: [phone] 2.9\S\2.9 Normal <5.0 [facility] 250 DO Work Phone: [phone] Comment on above: PERFORMED BY:[facility] [place] [phone] MEDICAL DIRECTORRUDY MARIANO M.D. 24\S\24 Normal -[facility] 250 DO Work Phone: 123\S\123 Normal 35-149 -[facility] 250 DO Work Phone: Comment on above: TRIG ATP III CLASSIF ICATION TRIG less than 150 mg/dL Normal TRIG 150-199 mg/dL Borderline high TRIG 200-500 mg/dL High TRIG greater than 500 mg/dL Very high Standard traceable to the Center for Disease Conrtrol and Prevention (CDC) test method. 32\S\32 Normal 29-71 -[facility] 250 DO Work Phone: Comment on above: HDL CHOL ATP-III CLA SSIFICATION Cardiovascular Risk HDL > or equal to 60 mg/dL LOW HDL < 40 mg/dL HIGH Zuleyka Ag Negativeon 01-02-20 22 Zuleyka Ag Negative Negative Normal Negative [facility] Comment on above: Result Comment: This is a duplicate Zuleyka SARS Antigen (ELIDA) result to be used for statistical tracking purpose only. PERFORMED BY: [place] [address] PATHOLOGIST LANGUAGES AND LITERATURE INSTRUCTOR RUDY MARIANO M.D. Performed By: #### B PROCESSING REP #### [address] Complete Blood Count with Au to Diffon 12-31-2021 Basophils (Bld) [#/Vol] 0.04 10*3/uL Normal 0.00-0.20 [facility] Continuous Miner Operator Helper Comment on above: Performed By: #### L IPD, TSH, CBCAD, CMP #### [facility] [address] [place], [place] [id number] Basophils/100 WBC (Bld) 0.7 % Normal [facility] Specialist Comment on above: Performed By: #### L IPD, TSH, CBCAD, CMP #### [facility] [address] [place], [place] [id number] Eosinophils (Bld) [#/Vol] 0.42 10*3/uL Normal 0.02-0.50 [facility] [employer] Operator Helper Comment on above: Performed By: #### L IPD, TSH, CBCAD, CMP #### [facility] [address] [place], [place] [id number] Eosinophils/100 WBC (Bld) 7.6 % Normal [facility] [employer] Operator Helper Comment on above: Performed By: #### L IPD, TSH, CBCAD, CMP #### [facility] [address] [place], [place] [id number] Erythrocyte distribution width (RBC) [Ratio] 13.5 % Normal 11.0-15.0 [facility] [employer] Operator Helper Comment on above: Performed By: #### L IPD, TSH, CBCAD, CMP #### [facility] [address] [place], [place] [id number] Hematocrit (Bld) [Volume fraction] 37.4 % Low 38.5-50.0 [facility] Specialist Comment on above: Performed By: #### L IPD, TSH, CBCAD, CMP #### [facility] [address] [place], [place] [id number] Hemoglobin (Bld) [Mass/Vol] 11.8 g/dL Low 13.0-17.1 [facility] [employer] Operator Helper Comment on above: Performed By: #### L IPD, TSH, CBCAD, CMP #### [facility] [address] [place], [place] [id number] Lymphocytes (Bld) [#/Vol] 1.8 10*3/uL Normal 0.9-3.9 [facility] [employer] Operator Helper Comment on above: Performed By: #### L IPD, TSH, CBCAD, CMP #### [facility] [address] [place], [place] [phone] Lymphocytes/100 WBC (Bld) 33.3 % Normal [facility] [employer] Operator Helper Comment on above: Performed By: #### L IPD, TSH, CBCAD, CMP #### [facility] [address] [place], [place] [id number] MCH (RBC) [Entitic mass] 29.4 pg Normal 27.0-33.0 [facility] [employer] Operator Helper Comment on above: Performed By: #### L IPD, TSH, CBCAD, CMP #### [facility] [address] [place], [place] [id number] MCHC (RBC) [Mass/Vol] 31.6 g/dL Low 32.0-36.0 [facility] Continuous [employer] Operator Helper Comment on above: Performed By: #### L IPD, TSH, CBCAD, CMP #### [facility] [address] [place], [place] [id number] MCV (RBC) [Entitic vol] 93 fL Normal 80-100 [facility] Specialist Comment on above: Performed By: #### L IPD, TSH, CBCAD, CMP #### [facility] [address] [place], [place] [id number] Monocytes (Bld) [#/Vol] 0.4 10*3/uL Normal 0.2-0.9 [facility] Specialist Comment on above: Performed By: #### L IPD, TSH, CBCAD, CMP #### [facility] [address] [place], [place] [id number] Monocytes/100 WBC (Bld) 7.2 % Normal [facility] Specialist Comment on above: Performed By: #### L IPD, TSH, CBCAD, CMP #### [facility] [address] [place], [place] [id number] Neutrophils (Bld) [#/Vol] 2.8 10*3/uL Normal 1.5-7.8 [facility] Specialist Comment on above: Performed By: #### L IPD, TSH, CBCAD, CMP #### [facility] [address] [place], [place] [id number] Neutrophils/100 WBC (Bld) 51.0 % Normal [facility] Specialist Comment on above: Performed By: #### L IPD, TSH, CBCAD, CMP #### [facility] [address] [place], [place] [id number] Platelet mean volume (Bld) [Entitic vol] 11.80 fL Normal 7.50-12.50 [facility] Comment on above: Performed By: #### L IPD, TSH, CBCAD, CMP #### [facility] [address] [place], [place] [id number] Platelets (Bld) [#/Vol] 248 10*3/uL Normal 140-400 [facility] Specialist Comment on above: Performed By: #### L IPD, TSH, CBCAD, CMP #### [facility] [address] [place], [place] [id number] RBC (Bld) [#/Vol] 4.01 10*6/uL Low 4.20-5.80 [facility] Continuous Miner Operator Helper Comment on above: Performed By: #### L IPD, TSH, CBCAD, CMP #### [facility] [address] [place], [place] [id number] RDW-SD 46.0 fL Normal 37.0-50.0 [facility] Specialist Comment on above: Performed By: #### L IPD, TSH, CBCAD, CMP #### [facility] [address] [place], [place] [id number] WBC (Bld) [#/Vol] 5.5 10*3/uL Normal 3.8-11.0 [facility] Continuous Miner Operator Helper Comment on above: Performed By: #### L IPD, TSH, CBCAD, CMP #### [facility] [address] [place], [place] [id number] Comprehensive Met[facility] 12-31-2021 Albumin [Mass/Vol] 4.4 g/dL Normal 3.6-5.1 [facility] Continuous Miner Operator Helper Comment on above: Performed By: #### L IPD, TSH, CBCAD, CMP #### [facility] [address] [place], [place] [id number] Albumin/Globulin [Mass ratio] 1.5 {ratio} Normal 1.0-2.5 [facility] Specialist Comment on above: Performed By: #### L IPD, TSH, CBCAD, CMP #### [facility] [address] [place], [place] [id number] ALP [Catalytic activity/Vol] 121 U/L Normal 40-129 [facility] Specialist Comment on above: Performed By: #### L IPD, TSH, CBCAD, CMP #### [facility] [address] [place], [place] [id number] ALT [Catalytic activity/Vol] 18 U/L Normal 9-46 [facility] Specialist Comment on above: Result Comment: Spec imen is hemolyzed. Results may be affected. 07/11/2021 Female reference range changed. Performed By: #### L IPD, TSH, CBCAD, CMP #### [facility] [address] [place], [place] [id number] Anion gap [Moles/Vol] 20 mmol/L Normal 12-20 [facility] [employer] Helper Comment on above: Result Comment: Effe ctive 08/16/2019 reference range changed. Performed By: #### L IPD, TSH, CBCAD, CMP #### [facility] [address] [place], [place] [id number] AST [Catalytic activity/Vol] 27 U/L Normal 10-40 [facility] Comment on above: Result Comment: Spec imen is hemolyzed. Results may be affected. Performed By: #### L IPD, TSH, CBCAD, CMP #### [facility] [address], [place] [id number] Bilirubin [Mass/Vol] 0.43 mg/dL Normal 0.30-1.20 [facility] Comment on above: Performed By: #### L IPD, TSH, CBCAD, CMP #### [facility] [address], [place] [id number] BUN/CREA 17 Ratio Normal 6-22 [facility] Comment on above: Performed By: #### L IPD, TSH, CBCAD, CMP #### [facility] [address], [place] [id number] Calcium [Mass/Vol] 9.9 mg/dL Normal 8.6-10.2 [facility] Comment on above: Performed By: #### L IPD, TSH, CBCAD, CMP #### [facility] [address], [place] [id number] Chloride [Moles/Vol] 107 mmol/L Normal 98-107 [facility] Comment on above: Performed By: #### L IPD, TSH, CBCAD, CMP #### [facility] [address], [place] [id number] CO2 [Moles/Vol] 18 mmol/L Low 20-31 [facility] Comment on above: Performed By: #### L IPD, TSH, CBCAD, CMP #### [facility] [address], [place] [id number] Creatinine [Mass/Vol] 1.0 mg/dL Normal 0.7-1.4 [facility] Comment on above: Performed By: #### L IPD, TSH, CBCAD, CMP #### [facility] [address], [place] [id number] eGFRAA 90 mL/min/1.73m2 Normal >60 [facility] [employer] Comment on above: Performed By: #### L IPD, TSH, CBCAD, CMP #### [facility] [address], [place] [id number] eGFRNAA 74 mL/min/1.73m2 Normal >60 [facility] [employer] Comment on above: Performed By: #### L IPD, TSH, CBCAD, CMP #### [facility] [address], [place] [id number] Globulin (S) [Mass/Vol] 3.0 g/dL Normal 1.9-3.7 [facility] [employer] Comment on above: Performed By: #### L IPD, TSH, CBCAD, CMP #### [facility] [address], [place] [id number] Glucose [Mass/Vol] 148 mg/dL High 65-99 [facility] [employer] Comment on above: Result Comment: For FASTING Glucose --- ADA reference ranges: Normal 65-99 mg/dl Prediabetes 100-125 Diabetes >/= 126 Performed By: #### L IPD, TSH, CBCAD, CMP #### [facility] [address], [place] [id number] Potassium [Moles/Vol] 5.4 mmol/L Normal 3.5-5.5 [facility] [employer] Comment on above: Result Comment: Spec imen is hemolyzed. Results may be affected. Performed By: #### L IPD, TSH, CBCAD, CMP #### [facility] [address], [place] [id number] Protein [Mass/Vol] 7.4 g/dL Normal 6.1-8.1 [facility] [employer] Comment on above: Performed By: #### L IPD, TSH, CBCAD, CMP #### [facility] [address], [place] [id number] Sodium [Moles/Vol] 140 mmol/L Normal 135-146 [facility] [employer] Comment on above: Performed By: #### L IPD, TSH, CBCAD, CMP #### [facility] [address], [place] [id number] Urea nitrogen [Mass/Vol] 17 mg/dL Normal 7-25 [facility] [employer] Comment on above: Performed By: #### L IPD, TSH, CBCAD, CMP #### [facility] [address], [place] [id number] Lipid Panelon 12-31-2021 Cholesterol [Mass/Vol] 95 mg/dL Low 125-200 [facility] [employer] Comment on above: Result Comment: Low risk < 200mg/dL Borderline risk 201-239 mg/dl High risk > or equal to 240 Performed By: #### L IPD, TSH, CBCAD, CMP #### [facility] [address], [place] [id number] Cholesterol in HDL [Mass/Vol] 34 mg/dL Low >40 [facility] [employer] Comment on above: Result Comment: High Cardiovascular Risk HDL <40 mg/dL Low Cardiovascular Risk HDL > or equal to 60 mg/dl Performed By: #### L IPD, TSH, CBCAD, CMP #### [facility] [address], [place] [id number] Cholesterol in LDL [Mass/Vol] 37 mg/dL Normal [facility] Comment on above: Result Comment: LDL ATP III CLASSIFICATION LDL less than 100 mg/dl Optimal LDL 100-129 mg/dl Near or above optimal LDL 130-159 Borderline high LDL 160-189 High LDL greater than 189 mg/dl Very High Performed By: #### L IPD, TSH, CBCAD, CMP #### [facility] [address], [place] [id number] Cholesterol in VLDL [Mass/Vol] 24 mg/dL Normal [facility] Comment on above: Performed By: #### L IPD, TSH, CBCAD, CMP #### [facility] [address], [place] [id number] Cholesterol.total/Ch olesterol in HDL [Mass ratio] 3 {ratio} Normal [facility] Comment on above: Performed By: #### L IPD, TSH, CBCAD, CMP #### [facility] [address] [facility] [place] [id number] Triglyceride [Mass/Vol] 118 mg/dL Normal 30-150 [facility] [employer] Comment on above: Result Comment: TRIG ATPIII CLASSIFICATIONS TRIG less than 150 mg/dl Normal TRIG 150-199 mg/dl Borderline High TRIG 200-500 mg/dl High TRIG greather than 500 mg/dl Very High Performed By: #### L IPD, TSH, CBCAD, CMP #### [facility] [address], [place] [id number] Microalbumin (with Creat)on 12-31-2021 mALB 8.6 mg/dL Normal [facility] Comment on above: Result Comment: mALB reference range not established. Performed By: #### m ALBC #### [facility] [address], [place] [id number] mALB/Creat Ratio 96.6 MCG/MG Normal [facility] Comment on above: Result Comment: The ADA (Diabetes Care 26:S94-S98, 2002) defines abnormalities in Albumin excretion as follows: Category Result (MCG/MG Creatinine) Normal <30 Microalbuminuria 30-299 Clinical Albuminuria > or = 300 Performed By: #### m ALBC #### [facility] [address], [place] [id number] UCREA 89 mg/dL Normal 39-259 [facility] [employer] Comment on above: Performed By: #### m ALBC #### [facility] [address], [place] [id number] TSHon 12-31-2021 TSH 1.610 uIU/mL Normal 0.400-4.500 [facility] [employer] Comment on above: Performed By: #### L IPD, TSH, CBCAD, CMP #### [facility] [address], [place] [id number] NM zachariah perf SPECT rest stron 12-27-2021 NM zachariah perf SPECT rest str [facility] [place] [address] Nuclear Medicine Report Signed Patient: Everette George MR#: [id number] : 1960 Acct:[id number] Age/Sex: 61 / M ADM Date: 12/26/21 Loc: Room: Type: [facility] Attending Dr: Lani Luevano DO Ordering Provider: Lani Luevano DO Date of Service: 12/26/21 NM/NM zachariah perf SPECT rest str: CHEST PAIN Copies to: DO Ishan Pepe MD W Scott Sheldon, DO REFERRING PHYSICIAN: Benjamin Luevano DO REASON FOR STUDY: Chest pain. PROCEDURE: The patient underwent 2-day rest/stress protocol. Rest images obtained by injecting 29.1 mCi of Cardiolite. Stress images obtained by injecting 28.5 mCi of Cardiolite. Subsequently, gated SPECT and ejection fraction studies were performed. IMAGING RESULT: This appears to be a fair study. There is a small to moderate sized anteroseptal and apical wall defect that appears to be reversible consistent with yzeko-ec-omwafity area of anteroseptal and apical wall ischemia. Left ventricular ejection fraction appears normal, calculated at 60%. TID index normal at 0.64. CONCLUSION: 1. Bjewl-wb-dwifjxgp area of anteroseptal and apical wall ischemia. 2. No prior myocardial infarction. 3. Normal left ventricular systolic function and wall motion. 4. Study compared to previous study done back in 2019, previous study also reported ischemia in the anterior wall. Transcribed By: DALTON 12/27/21 1136 Dictated By: Ishan Justice MD 12/27/21 1129 Signed By: 12/27/21 1219 [facility] No Panel Informationon 12-[address] [facility] 250 DO Work Phone: No Panel Informationon 12-26 [facility] 250 DO Work Phone: STR cardiac stress/lexiscano n 12-26-2021 STR cardiac stress/lexiscan [facility] Main [place] [id number] Cardiac Stress Test Signed Patient: Everette George MR#: [id number] : 1960 Acct:[id number] Age/Sex: 61 / M ADM Date: 12/26/21 Loc: Room: Type: [facility] Attending Dr: Lani Luevano DO Copies to: MD Lani Gaytan DO Ordering Provider: Lani Luevano DO Date of Service: 12/26/21 STR/STR cardiac stress/lexiscan: nstemi, sob REASON FOR STUDY: Shortness of breath and chest pain. REFERRING PHYSICIAN: Benjamin Luevano DO PROCEDURE: The patient underwent Lexiscan myocardial perfusion study. The patient was injected with 0.4 mg of Lexiscan, following which no symptoms reported. Blood pressure and heart response to Lexiscan was physiologic. Baseline ECG showed normal sinus rhythm. No ST-T changes. Following Lexiscan, no changes were seen. CONCLUSION: 1. Lexiscan Cardiolite stress test without diagnostic ST-T changes for ischemia. 2. No provoked chest pain or arrhythmia. 3. Appropriate hemodynamic response to Lexiscan. 4. Perfusion images will be dictated separately. Transcribed By: DALTON 12/27/21 1121 Dictated By: Ishan Justice MD 12/26/21 1638 Signed By: 12/27/21 1219 [facility] XR KUB 1 VIEWon 12-03-2021 XR KUB 1 VIEW EXAMINATION: XR KUB 1 VIEW HISTORY: Ureteric stone COMPARISON: No relevant comparison available. FINDINGS: KIDNEY/URETER - RIGHT: No visible renal or ureteral calcifications. KIDNEY/URETER - LEFT: Left double-J ureteral stent. 4.5 mm calcification along the proximal stent. 3 mm calcification lateral proximal stent Additional 5 mm lower pole nephrolith PELVIS: No visible ureteral calcifications. Any visible calcifications favor phleboliths. BOWEL: No abnormal dilation or deviation. BONES: No acute abnormality. OTHER: Negative. No abnormal gaseous collections. IMPRESSION: Left ureteral stent with suspected ureterolithiasis Electronically authenticated by: ANAM LESLIE Date: 2021-12-03 17:50 Normal [facility] Complete Blood Count with Au to Diffon 11-27-2021 Basophils (Bld) [#/Vol] 0.03 10*3/uL Normal 0.00-0.20 [facility] [employer] Comment on above: Performed By: #### C BCAD, CMP #### [facility] [address], [place] [id number] Basophils/100 WBC (Bld) 0.4 % Normal [facility] [employer] Comment on above: Performed By: #### C BCAD, CMP #### [facility] [address], [place] [id number] Eosinophils (Bld) [#/Vol] 0.13 10*3/uL Normal 0.02-0.50 [facility] [employer] Comment on above: Performed By: #### Madeline ALVAREZ, CMP #### [facility] [address], [place] [id number] Eosinophils/100 WBC (Bld) 1.8 % Normal [facility] [employer] Comment on above: Performed By: #### Madeline ALVAREZ, CMP #### [facility] [address], [place] [id number] Erythrocyte distribution width (RBC) [Ratio] 12.8 % Normal 11.0-15.0 [facility] [employer] Comment on above: Performed By: #### C KIM, CMP #### [facility] [address], [place] [id number] Hematocrit (Bld) [Volume fraction] 36.6 % Low 38.5-50.0 [facility] [employer] Comment on above: Performed By: #### Madeline ALVAREZ, CMP #### [facility] [address], [place] [id number] Hemoglobin (Bld) [Mass/Vol] 11.7 g/dL Low 13.0-17.1 [facility] [employer] Comment on above: Performed By: #### Madeline ALVAREZ, CMP #### [facility] [address], [place] [id number] Lymphocytes (Bld) [#/Vol] 1.2 10*3/uL Normal 0.9-3.9 [facility] [employer] Comment on above: Performed By: #### Madeline ALVAREZ, CMP #### [facility] [address], [place] [id number] Lymphocytes/100 WBC (Bld) 17.1 % Normal [facility] [employer] Comment on above: Performed By: #### C KIM, CMP #### [facility] [address], [place] [id number] MCH (RBC) [Entitic mass] 29.2 pg Normal 27.0-33.0 [facility] [employer] Comment on above: Performed By: #### C KIM, CMP #### [facility] [address], [place] [id number] MCHC (RBC) [Mass/Vol] 32.0 g/dL Normal 32.0-36.0 [facility] Comment on above: Performed By: #### C KIM, CMP #### [facility] [address], [place] [id number] MCV (RBC) [Entitic vol] 91 fL Normal 80-100 [facility] Comment on above: Performed By: #### C KIM, CMP #### [facility] [address], [place] [id number] Monocytes (Bld) [#/Vol] 0.4 10*3/uL Normal 0.2-0.9 [facility] Comment on above: Performed By: #### C KIM, CMP #### [facility] [address], [place] [id number] Monocytes/100 WBC (Bld) 5.4 % Normal [facility] Comment on above: Performed By: #### C KIM, CMP #### [facility] [address], [place] [id number] Neutrophils (Bld) [#/Vol] 5.4 10*3/uL Normal 1.5-7.8 [facility] Comment on above: Performed By: #### C KIM, CMP #### [facility] [address], [place] [id number] Neutrophils/100 WBC (Bld) 74.6 % Normal [facility] Comment on above: Performed By: #### C KIM, CMP #### [facility] [address], [place] [id number] Platelet mean volume (Bld) [Entitic vol] 9.80 fL Normal 7.50-12.50 [facility] Comment on above: Performed By: #### C KIM, CMP #### [facility] [address], [place] [id number] Platelets (Bld) [#/Vol] 392 10*3/uL Normal 140-400 [facility] Comment on above: Performed By: #### C BCAJimmy, CMP #### [facility] [address], [place] [id number] RBC (Bld) [#/Vol] 4.01 10*6/uL Low 4.20-5.80 [facility] Comment on above: Performed By: #### C BCAD, CMP #### [facility] [address], [place] [id number] RDW-SD 42.6 fL Normal 37.0-50.0 [facility] Comment on above: Performed By: #### C BCAD, CMP #### [facility] [address], [place] [id number] WBC (Bld) [#/Vol] 7.2 10*3/uL Normal 3.8-11.0 [facility] Comment on above: Performed By: #### C BCAD, CMP #### [facility] [address], [place] [id number] Comprehensive Metabolic Pane [facility] 11-27-2021 Albumin [Mass/Vol] 3.9 g/dL Normal 3.6-5.1 [facility] Comment on above: Performed By: #### C BCAD, CMP #### [facility] [address], [place] [id number] Albumin/Globulin [Mass ratio] 1.3 {ratio} Normal 1.0-2.5 [facility] Comment on above: Performed By: #### C BCAD, CMP #### [facility] [address], [place] [id number] ALP [Catalytic activity/Vol] 121 U/L Normal 40-129 [facility] Comment on above: Performed By: #### C BCAD, CMP #### [facility] [address], [place] [id number] ALT [Catalytic activity/Vol] 52 U/L High 9-46 [facility] Comment on above: Result Comment: 07/11 Female reference range changed. Performed By: #### C BCAD, CMP #### [facility] [address], [place] [id number] Anion gap [Moles/Vol] 24 mmol/L High 12-20 [facility] [employer] Comment on above: Result Comment: Effe ctive 08/16/2019 reference range changed. Performed By: #### C BCAD, CMP #### [facility] [address], [place] [id number] AST [Catalytic activity/Vol] 37 U/L Normal 10-40 [facility] Comment on above: Performed By: #### C BCAD, CMP #### [facility] [address], [place] [id number] Bilirubin [Mass/Vol] 0.42 mg/dL Normal 0.30-1.20 [facility] Comment on above: Performed By: #### C BCAD, CMP #### [facility] [address], [place] [id number] BUN/CREA 12 Ratio Normal 6-22 [facility] Comment on above: Performed By: #### C BCAD, CMP #### [facility] [address], [place] [id number] Calcium [Mass/Vol] 9.3 mg/dL Normal 8.6-10.2 [facility] Comment on above: Performed By: #### C BCAD, CMP #### [facility] [address], [place] [id number] Chloride [Moles/Vol] 103 mmol/L Normal 98-107 [facility] Comment on above: Performed By: #### C BCAD, CMP #### [facility] [address], [place] [id number] CO2 [Moles/Vol] 19 mmol/L Low 20-31 [facility] Comment on above: Performed By: #### C BCAD, CMP #### [facility] [address], [place] [id number] Creatinine [Mass/Vol] 1.1 mg/dL Normal 0.7-1.4 [facility] Comment on above: Performed By: #### C BCAD, CMP #### [facility] [address], [place] [id number] eGFRAA 80 mL/min/1.73m2 Normal >60 [facility] Comment on above: Performed By: #### C BCAD, CMP #### [facility] [address], [place] [id number] eGFRNAA 66 mL/min/1.73m2 Normal >60 [facility] [employer] Comment on above: Performed By: #### C BCAD, CMP #### [facility] [address], [place] [id number] Globulin (S) [Mass/Vol] 3.1 g/dL Normal 1.9-3.7 [facility] [employer] Comment on above: Performed By: #### C BCAD, CMP #### [facility] [address], [place] [id number] Glucose [Mass/Vol] 191 mg/dL High 65-99 [facility] [employer] Comment on above: Result Comment: For FASTING Glucose --- ADA reference ranges: Normal 65-99 mg/dl Prediabetes 100-125 Diabetes >/= 126 Performed By: #### C BCAD, CMP #### [facility] [address], [place] [id number] Potassium [Moles/Vol] 4.9 mmol/L Normal 3.5-5.5 [facility] [employer] Comment on above: Result Comment: Spec imen is hemolyzed. Results may be affected. Performed By: #### C BCAD, CMP #### [facility] [address], [place] [id number] Protein [Mass/Vol] 7.0 g/dL Normal 6.1-8.1 [facility] [employer] Comment on above: Performed By: #### C BCAD, CMP #### [facility] [address], [place] [id number] Sodium [Moles/Vol] 141 mmol/L Normal 135-146 [facility] [employer] Comment on above: Performed By: #### C BCAD, CMP #### [facility] [address], [place] [id number] Urea nitrogen [Mass/Vol] 13 mg/dL Normal 7-25 [facility] [employer] Comment on above: Performed By: #### C BCAD, CMP #### [facility] [address], [place] [id number] Basic Metabolic Panelon 11-09 Calcium [Mass/Vol] 8.3 mg/dL Normal 8.2-10.2 [facility] Comment on above: Performed By: #### C MARIPOSA MITCHELLUAPLUS #### [facility] [address] [place] [address] [place] Chloride [Moles/Vol] 101 mmol/L Normal 95-114 [facility] Comment on above: Performed By: #### C UU, ADDONUAPLUS #### [facility] [address] [place] [id number] [place] CO2 [Moles/Vol] 23.3 mmol/L Normal 22.0-30.0 [facility] Comment on above: Performed By: #### C UU, ADDONUAPLUS #### [facility] [address] Creatinine [Mass/Vol] 1.44 mg/dL High 0.64-1.27 [facility] Comment on above: Performed By: #### C UU, ADDONUAPLUS #### [facility] [address] Creatinine Clr Calc Pharmacy 86.06 [facility] Comment on above: Performed By: #### C UU, ADDONUAPLUS #### [facility] [address] Estimated GFR ( Isabelle > 60 [facility] Comment on above: Result Comment: GFR estimated reference range: According to KDOQI guidelines, <60 ml/min/1.73m2 is sufficient to diagnose a patient with chronic kidney disease. Performed By: #### C UU, ADDONUAPLUS #### [facility] [address] [place] [address] [place] Estimated GFR (Non- Am 50 [facility] Comment on above: Performed By: #### C UU, ADDONUAPLUS #### [facility] [address] [place] [address] [place] Glucose [Mass/Vol] 125 mg/dL High 70-100 [facility] Comment on above: Result Comment: [place] om Glucose Reference Range is dependent on time and content of last meal. Glucose of more than 200 mg/dL in a nonstressed, ambulatory subject supports the diagnosis of Diabetes Mellitus. ADA recommended reference range Performed By: #### C UU, ADDONUAPLUS #### [facility] [address] Potassium [Moles/Vol] 3.5 mmol/L Normal 3.5-5.1 [facility] Comment on above: Performed By: #### C UU, ADDONUAPLUS #### [facility] [address] [place] [address] Sodium [Moles/Vol] 134 mmol/L Low 136-146 [facility] Comment on above: Performed By: #### C UU, ADDONUAPLUS #### [facility] [address] [place] [address] Urea nitrogen [Mass/Vol] 26 mg/dL High - [facility] Comment on above: Performed By: #### C UJarek, ADDONUAPLUS #### [facility] [address] [place] [address] Complete Blood Count Auto Di ffon 11-23-2021 Basophils (Bld) [#/Vol] 0.0 10*3/uL Normal 0.0-0.2 [facility] Comment on above: Result Comment: PERF ORMED BY: [place] [address] PATHOLOGIST [employer]ITERATURE INSTRUCTOR RUDY MARIANO M.D. Performed By: #### C UJarek, ADDONUAPLUS #### [facility] [address] [place] [address] Basophils/100 WBC (Bld) 0.3 % Normal . [facility] Comment on above: Performed By: #### C UU, ADDONUAPLUS #### [facility] [address] [place] [address] Eosinophils (Bld) [#/Vol] 0.1 10*3/uL Normal 0.0-0.45 [facility] Comment on above: Performed By: #### C UU, ADDONUAPLUS #### [facility] [address] [place] [address] [place] Eosinophils/100 WBC (Bld) 1.8 % Normal . [facility] Comment on above: Performed By: #### C UU, ADDONUAPLUS #### [address] Erythrocyte distribution width (RBC) [Ratio] 13.4 % Normal 12.0-14.8 [facility] Comment on above: Performed By: #### C UU, ADDONUAPLUS #### [address] Hematocrit (Bld) [Volume fraction] 31.8 % Low 38.8-50.0 [facility] Comment on above: Performed By: #### C UU, ADDONUAPLUS #### [address] Hemoglobin (Bld) [Mass/Vol] 10.9 g/dL Low 13.0-17.0 [facility] Comment on above: Performed By: #### C UU, ADDONUAPLUS #### [address] Lymphocytes (Bld) [#/Vol] 0.8 10*3/uL Low 1.00-4.8 [facility] Comment on above: Performed By: #### C UU, ADDONUAPLUS #### [address] Lymphocytes/100 WBC (Bld) 10.4 % Normal . [facility] Comment on above: Performed By: #### C UU, ADDONUAPLUS #### [address] MCH (RBC) [Entitic mass] 30.2 pg Normal 27.5-35.2 [facility] Comment on above: Performed By: #### C UU, ADDONUAPLUS #### [address] MCV (RBC) [Entitic vol] 88.4 fL Normal 83.5-101 [facility] Comment on above: Performed By: #### C UU, ADDONUAPLUS #### [address] Mean Corpuscular HGB Conc 34.2 g/dL Normal 32.5-35.6 [facility] Comment on above: Performed By: #### C UU, ADDONUAPLUS #### [facility] [address] [place] [address] Monocytes (Bld) [#/Vol] 0.9 10*3/uL High 0.0-0.8 [facility] Comment on above: Performed By: #### C UU, ADDONUAPLUS #### [address] Monocytes/100 WBC (Bld) 12.4 % Normal . [facility] Comment on above: Performed By: #### C UU, ADDONUAPLUS #### [address] Neutrophils (Bld) [#/Vol] 5.5 10*3/uL Normal 1.8-7.7 [facility] Comment on above: Performed By: #### C UU, ADDONUAPLUS #### [address] Neutrophils/100 WBC (Bld) 75.1 % Normal . [facility] Comment on above: Performed By: #### C UU, ADDONUAPLUS #### [address] Nucleated RBC/100 WBC (Bld) [Ratio] 0.0 % Normal 0-0.5 [facility] Comment on above: Performed By: #### C UU, ADDONUAPLUS #### [address] Platelet mean volume (Bld) [Entitic vol] 8.1 fL Normal 6.6-10.1 [facility] Comment on above: Performed By: #### C UU, ADDONUAPLUS #### [address] Platelets (Bld) [#/Vol] 179 10*3/uL Normal 150-450 [facility] Comment on above: Performed By: #### C UU, ADDONUAPLUS #### [address] [place] [address] [place] RBC (Bld) [#/Vol] 3.60 10*6/uL Low 3.90-5.60 [facility] Comment on above: Performed By: #### C UU, ADDONUAPLUS #### [facility] [address] WBC (Bld) [#/Vol] 7.3 10*3/uL Normal 4.5-11.0 [facility] Comment on above: Performed By: #### C UU, ADDONUAPLUS #### [facility] [address] [place] [address] Glucose Poct Glucometerson 0 11-23-2021 Glucose [Mass/Vol] 215 mg/dL Normal [facility] Comment on above: Result Comment: [place] om Glucose Reference Range is dependent on time and content of last meal. Glucose of more than 200 mg/dL in a nonstressed, ambulatory subject supports the diagnosis of Diabetes Mellitus. PERFORMED BY: [place] [address] PATHOLOGIST LANGUAGES AND LITERATURE INSTRUCTOR RUDY MARIANO M.D. Performed By: #### G LULS #### Point of Care testing , Commemt1 Glu2: Cleaned Meter Normal [facility] Comment on above: Result Comment: PERF ORMED BY: [place] [address] PATHOLOGIST LANGUAGES AND LITERATURE INSTRUCTOR RUDY MARIANO M.D. Performed By: #### G LULS #### Point of Care testing , Glucose [Mass/Vol] 124 mg/dL Normal [facility] Comment on above: Result Comment: [place] Glucose Reference Range is dependent on time and content of last meal. Glucose of more than 200 mg/dL in a nonstressed, ambulatory subject supports the diagnosis of Diabetes Mellitus. Performed By: #### G LULS #### Point of Care testing , Parathyroid Hormone Intacton 11-23-2021 Parathyroid Hormone Intact 42.3 pg/mL Normal 12-88 [facility] Comment on above: Result Comment: PERF ORMED BY: [place] [address] PATHOLOGIST LANGUAGES AND LITERATURE INSTRUCTOR RUDY MARIANO M.D. Performed By: #### C PAULA, ADDONUAPLUS #### [address] Troponin I High Sensitivityo n 11-23-2021 Troponin I High Sensitivity 128 pg/mL Off scale high 0-20 [facility] Comment on above: Result Comment: Resu lts called at 0611 on 11/23/21 PERFORMED BY: [place] [address] PATHOLOGIST LANGUAGES AND LITERATURE INSTRUCTOR RUDY MARIANO M.D. Performed By: #### C PAULA, ADDONUAPLUS #### [address] Vitamin D 25 Hydroxy Totalon 11-23-2021 Vitamin D 25 Hydroxy Total 40.4 ng/mL Normal 30-100 [facility] Comment on above: Result Comment: RHETT MIN D STATUS 25(OH)VITAMIN D RANGE (ng/mL) Deficient <20 Insufficient 20 to <30 Sufficient 30 to 100 Reference: Etelvina MF,Katerina NC, Tressa RODRIGUES, et al. Evaluation,treatment, and prevention of vitamin D deficiency; an Endocrine Society clinical practice guideline. JCEM. 2010; 96(7):1911-30. Performed By: #### C PAULA, ADDONUAPLUS #### [address] Basic Metabolic Panelon 11-09 Calcium [Mass/Vol] 8.2 mg/dL Normal 8.2-10.2 [facility] Comment on above: Performed By: #### G LULS #### Point of Care testing , Chloride [Moles/Vol] 100 mmol/L Normal 95-114 [facility] Comment on above: Performed By: #### G LULS #### Point of Care testing , CO2 [Moles/Vol] 22.2 mmol/L Normal 22.0-30.0 [facility] Comment on above: Performed By: #### G LULS #### Point of Care testing , Creatinine [Mass/Vol] 1.66 mg/dL High 0.64-1.27 [facility] Comment on above: Performed By: #### G LULS #### Point of Care testing , Creatinine Clr Calc Pharmacy 74.55 [facility] Comment on above: Result Comment: PERF ORMED BY: [facility] [place] [address] PATHOLOGIST LANGUAGES AND LITERATURE INSTRUCTOR RUDY MARIANO M.D. Performed By: #### G LULS #### Point of Care testing , Estimated GFR ( [place] [facility] Comment on above: Result Comment: GFR estimated reference range: According to KDOQI guidelines, <60 ml/min/1.73m2 is sufficient to diagnose a patient with chronic kidney disease. Performed By: #### G LULS #### Point of Care testing , Estimated GFR (Non- Am 42 [facility] Comment on above: Performed By: #### G LULS #### Point of Care testing , Glucose [Mass/Vol] 157 mg/dL High 70-100 [facility] Comment on above: Result Comment: [place] Glucose Reference Range is dependent on time and content of last meal. Glucose of more than 200 mg/dL in a nonstressed, ambulatory subject supports the diagnosis of Diabetes Mellitus. ADA recommended reference range Performed By: #### G LULS #### Point of Care testing , Potassium [Moles/Vol] 3.5 mmol/L Normal 3.5-5.1 [facility] Comment on above: Performed By: #### G LULS #### Point of Care testing , Sodium [Moles/Vol] 133 mmol/L Low 136-146 [facility] Comment on above: Performed By: #### G LULS #### Point of Care testing , Urea nitrogen [Mass/Vol] 33 mg/dL High 9-23 [facility] Comment on above: Performed By: #### G LULS #### Point of Care testing , Complete Blood Count Auto Di ffon 11-22-2021 Basophils (Bld) [#/Vol] 0.0 10*3/uL Normal 0.0-0.2 [facility] Comment on above: Result Comment: PERF ORMED BY: [facility] [place] [address] PATHOLOGIST LANGUAGES AND LITERATURE INSTRUCTOR RUDY MARIANO M.D. Performed By: #### G LULS #### Point of Care testing , Basophils/100 WBC (Bld) 0.3 % Normal . [facility] Comment on above: Performed By: #### G LULS #### Point of Care testing , Eosinophils (Bld) [#/Vol] 0.2 10*3/uL Normal 0.0-0.45 [facility] Comment on above: Performed By: #### G LULS #### Point of Care testing , Eosinophils/100 WBC (Bld) 2.0 % Normal . [facility] Comment on above: Performed By: #### G LULS #### Point of Care testing , Erythrocyte distribution width (RBC) [Ratio] 13.3 % Normal 12.0-14.8 [facility] Comment on above: Performed By: #### G LULS #### Point of Care testing , Hematocrit (Bld) [Volume fraction] 32.5 % Low 38.8-50.0 [facility] Comment on above: Performed By: #### G LULS #### Point of Care testing , Hemoglobin (Bld) [Mass/Vol] 11.1 g/dL Low 13.0-17.0 [facility] Comment on above: Performed By: #### G LULS #### Point of Care testing , Lymphocytes (Bld) [#/Vol] 0.5 10*3/uL Low 1.00-4.8 [facility] Comment on above: Performed By: #### G LULS #### Point of Care testing , Lymphocytes/100 WBC (Bld) 6.0 % Normal . [facility] Comment on above: Performed By: #### G LULS #### Point of Care testing , MCH (RBC) [Entitic mass] 30.1 pg Normal 27.5-35.2 [facility] Comment on above: Performed By: #### Sarthak GUERIN #### Point of Care testing , MCV (RBC) [Entitic vol] 88.5 fL Normal 83.5-101 [facility] Comment on above: Performed By: #### Sarthak GUERIN #### Point of Care testing , Mean Corpuscular HGB Conc 34.1 g/dL Normal 32.5-35.6 [facility] Comment on above: Performed By: #### Sarthak GUERIN #### Point of Care testing , Monocytes (Bld) [#/Vol] 0.8 10*3/uL Normal 0.0-0.8 [facility] Comment on above: Performed By: #### Sarthak GUERIN #### Point of Care testing , Monocytes/100 WBC (Bld) 10.3 % Normal . [facility] Comment on above: Performed By: #### Sarthak GUERIN #### Point of Care testing , Neutrophils (Bld) [#/Vol] 6.4 10*3/uL Normal 1.8-7.7 [facility] Comment on above: Performed By: #### Sarthak GUERIN #### Point of Care testing , Neutrophils/100 WBC (Bld) 81.4 % Normal . [facility] Comment on above: Performed By: #### Sarthak GUERIN #### Point of Care testing , Nucleated RBC/100 WBC (Bld) [Ratio] 0.0 % Normal 0-0.5 [facility] Comment on above: Performed By: #### Sarthak GUERIN #### Point of Care testing , Platelet mean volume (Bld) [Entitic vol] 8.3 fL Normal 6.6-10.1 [facility] Comment on above: Performed By: #### Sarthak GUERIN #### Point of Care testing , Platelets (Bld) [#/Vol] 137 10*3/uL Low 150-450 [facility] Comment on above: Performed By: #### Sarthak GUERIN #### Point of Care testing , RBC (Bld) [#/Vol] 3.67 10*6/uL Low 3.90-5.60 [facility] Comment on above: Performed By: #### G LULS #### Point of Care testing , WBC (Bld) [#/Vol] 7.9 10*3/uL Normal 4.5-11.0 [facility] Comment on above: Performed By: #### G LULS #### Point of Care testing , ECG 12 lead ECGon 11-22-2021 ECG 12 lead ECG [facility] [place] [address] [place] [id number] Electrocardiograph Report Signed Patient: Everette George MR#: [id number] : 1960 Acct:[id number] Age/Sex: 61 / M ADM Date: 11/19/21 Loc: Room: [address] [place] [address] Type: DIS IN Attending Dr: Henny Katz MD Ordering Provider: Lani Luevano DO Date of Service: 11/22/21 ECG/ECG 12 lead ECG: NSTEMI Copies to: Test Reason : Blood Pressure : / mmHG Vent. Rate : 069 BPM Atrial Rate : 069 BPM P-R Int : 170 ms QRS Dur : 086 ms QT Int : 444 ms P-R-T Axes : 049 027 264 degrees QTc Int : 475 ms Normal sinus rhythm Prolonged QT Abnormal ECG When compared with ECG of 20-NOV-2021 14:20, T wave inversion now evident in Inferior leads Confirmed by SANJU BEARD DO ([id number]) on 11/22/2021 12:35:28 PM Referred By: Electronically Signed By:SANJU BEARD DO Transcribed By: MUS Signed By Sanju Beard DO 11/[address] [facility] Glucose Poct Glucometerson 0 11-22-2021 Commemt1 Glu2: Cleaned Meter Normal [facility] Comment on above: Result Comment: PERF ORMED BY: [address] [address] PATHOLOGIST LANGUAGES AND LITERATURE INSTRUCTOR RUDY MARIANO M.D. Performed By: #### G LULS #### Point of Care testing , Glucose [Mass/Vol] 201 mg/dL Normal [facility] Comment on above: Result Comment: [place] Glucose Reference Range is dependent on time and content of last meal. Glucose of more than 200 mg/dL in a nonstressed, ambulatory subject supports the diagnosis of Diabetes Mellitus. Performed By: #### G LULS #### Point of Care testing , Glucose [Mass/Vol] 158 mg/dL Normal [facility] Comment on above: Result Comment: [place] Glucose Reference Range is dependent on time and content of last meal. Glucose of more than 200 mg/dL in a nonstressed, ambulatory subject supports the diagnosis of Diabetes Mellitus. PERFORMED BY: [place] [address] PATHOLOGIST LANGUAGES AND LITERATURE INSTRUCTOR RUDY MARIANO M.D. Performed By: #### G APOORVA #### Point of Care testing , Glucose [Mass/Vol] 170 mg/dL Normal [facility] Comment on above: Result Comment: [place] Glucose Reference Range is dependent on time and content of last meal. Glucose of more than 200 mg/dL in a nonstressed, ambulatory subject supports the diagnosis of Diabetes Mellitus. PERFORMED BY: [place] [address] PATHOLOGIST LANGUAGES AND LITERATURE INSTRUCTOR RUDY MARIANO M.D. Performed By: #### G APOORVA #### Point of Care testing , Glucose [Mass/Vol] 168 mg/dL Normal [facility] Comment on above: Result Comment: [place] Glucose Reference Range is dependent on time and content of last meal. Glucose of more than 200 mg/dL in a nonstressed, ambulatory subject supports the diagnosis of Diabetes Mellitus. PERFORMED BY: [place] [address] PATHOLOGIST LANGUAGES AND LITERATURE INSTRUCTOR RUDY MARIANO M.D. Performed By: #### B PROCESSING REP #### [address] Commemt1 Glu2: Cleaned Meter Normal [facility] Comment on above: Result Comment: PERF ORMED BY: [place] [address] PATHOLOGIST LANGUAGES AND LITERATURE INSTRUCTOR RUDY MARIANO M.D. Performed By: #### G APOORVA #### Point of Care testing , Glucose [Mass/Vol] 121 mg/dL Normal [facility] Comment on above: Result Comment: [facility] Glucose Reference Range is dependent on time and content of last meal. Glucose of more than 200 mg/dL in a nonstressed, ambulatory subject supports the diagnosis of Diabetes Mellitus. Performed By: #### G APOORVA #### Point of Care testing , Troponin I High Sensitivityo n 11-22-2021 Troponin I High Sensitivity 229 pg/mL Off scale high 0-20 [facility] Comment on above: Result Comment: Resu lts called at 0558 on 11/22/21 PERFORMED BY: [place] [address] PATHOLOGIST LANGUAGES AND LITERATURE INSTRUCTOR RUDY MARIANO M.D. Performed By: #### C UJarek ADDONUAPLUS #### [facility] [address] [place] [address] Basic Metabolic Panelon 11-09 Calcium [Mass/Vol] 7.7 mg/dL Low 8.2-10.2 [facility] Comment on above: Performed By: #### C UU ADDONUAPLUS #### [facility] [address] [place] [address] Chloride [Moles/Vol] 100 mmol/L Normal 95-114 [facility] Comment on above: Performed By: #### C UU ADDONUAPLUS #### [facility] [address] [place] [address] CO2 [Moles/Vol] 21.2 mmol/L Low 22.0-30.0 [facility] Comment on above: Performed By: #### C UU ADDONUAPLUS #### [facility] [address] [place] [address] Creatinine [Mass/Vol] 2.14 mg/dL High 0.64-1.27 [facility] Comment on above: Performed By: #### C UU ADDONUAPLUS #### [facility] [address] [place] [address] [place] Creatinine Clr Calc Pharmacy 57.86 [facility] Comment on above: Result Comment: PERF ORMED BY: [place] [address] PATHOLOGIST LANGUAGES AND LITERATURE INSTRUCTOR RUDY MARINAO M.D. Performed By: #### C UU, ADDONUAPLUS #### [facility] [address] [place] [address] Estimated GFR ( [place] 38 [facility] Comment on above: Result Comment: GFR estimated reference range: According to KDOQI guidelines, <60 ml/min/1.73m2 is sufficient to diagnose a patient with chronic kidney disease. Performed By: #### C UU, ADDONUAPLUS #### [address] Estimated GFR (Non- Am 32 [facility] Comment on above: Performed By: #### C UU, ADDONUAPLUS #### [address] Glucose [Mass/Vol] 143 mg/dL High 70-100 [facility] Comment on above: Result Comment: [place] Glucose Reference Range is dependent on time and content of last meal. Glucose of more than 200 mg/dL in a nonstressed, ambulatory subject supports the diagnosis of Diabetes Mellitus. ADA recommended reference range Performed By: #### C UU, ADDONUAPLUS #### [address] Potassium Normal 3.5-5.1 [facility] Comment on above: Result Comment: Spec imen hemolyzed, redraw requested Performed By: #### C UU, ADDONUAPLUS #### [facility] [address] [place] [address] [place] Sodium [Moles/Vol] 130 mmol/L Low 136-146 [facility] Comment on above: Performed By: #### C UU, ADDONUAPLUS #### [place] [address] [place] Urea nitrogen [Mass/Vol] 37 mg/dL High 9-23 [facility] Comment on above: Performed By: #### C UU, ADDONUAPLUS #### [address] Blood Cultureon 11-21-2021 Bacteria identified Cx Nom (Bld) NO GROWTH 5 DAYS PERFORMED BY: [place] [address] PATHOLOGIST LANGUAGES AND LITERATURE INSTRUCTOR RUDY MARIANO M.D. [facility] Comment on above: Performed By: #### B PROCESSING REP #### [address] Bacteria identified Cx Nom (Bld) NO GROWTH 5 DAYS PERFORMED BY: [place] [address] PATHOLOGIST LANGUAGES AND LITERATURE INSTRUCTOR RUDY MARIANO M.D. [facility] Comment on above: Performed By: #### C UU, ADDONUAPLUS #### [address] Complete Blood Count Auto Di ffon 11-21-2021 Basophils (Bld) [#/Vol] 0.0 10*3/uL Normal 0.0-0.2 [facility] Comment on above: Result Comment: PERF ORMED BY: [place] [address] PATHOLOGIST LANGUAGES AND LITERATURE INSTRUCTOR RUDY MARIANO M.D. Performed By: #### C UU, ADDONUAPLUS #### [place] [address] [place] Basophils/100 WBC (Bld) 0.2 % Normal . [facility] Comment on above: Performed By: #### C UU, ADDONUAPLUS #### [place] [address] [place] Eosinophils (Bld) [#/Vol] 0.1 10*3/uL Normal 0.0-0.45 [facility] Comment on above: Performed By: #### C UU, ADDONUAPLUS #### [place] [address] [place] Eosinophils/100 WBC (Bld) 0.9 % Normal . [facility] Comment on above: Performed By: #### C UU, ADDONUAPLUS #### [address] Erythrocyte distribution width (RBC) [Ratio] 13.2 % Normal 12.0-14.8 [facility] Comment on above: Performed By: #### C UU, ADDONUAPLUS #### [address] Hematocrit (Bld) [Volume fraction] 30.9 % Low 38.8-50.0 [facility] Comment on above: Performed By: #### C UJarek ADDONUAPLUS #### [address] Hemoglobin (Bld) [Mass/Vol] 10.7 g/dL Low 13.0-17.0 [facility] Comment on above: Performed By: #### C UU ADDONUAPLUS #### [address] Lymphocytes (Bld) [#/Vol] 0.4 10*3/uL Low 1.00-4.8 [facility] Comment on above: Performed By: #### C UJarek ADDONUAPLUS #### [address] Lymphocytes/100 WBC (Bld) 5.4 % Normal . [facility] Comment on above: Performed By: #### C UU, ADDONUAPLUS #### [address] MCH (RBC) [Entitic mass] 30.6 pg Normal 27.5-35.2 [facility] Comment on above: Performed By: #### C UU, ADDONUAPLUS #### [address] MCV (RBC) [Entitic vol] 88.6 fL Normal 83.5-101 [facility] Comment on above: Performed By: #### C UU, ADDONUAPLUS #### [address] [place] [address] [place] Mean Corpuscular HGB Conc 34.5 g/dL Normal 32.5-35.6 [facility] Comment on above: Performed By: #### C UU, ADDONUAPLUS #### [facility] [address] [place] [address] [place] Monocytes (Bld) [#/Vol] 0.6 10*3/uL Normal 0.0-0.8 [facility] Comment on above: Performed By: #### C UU, ADDONUAPLUS #### [place] [address] [place] Monocytes/100 WBC (Bld) 7.2 % Normal . [facility] Comment on above: Performed By: #### C UU, ADDONUAPLUS #### [address] Neutrophils (Bld) [#/Vol] 6.9 10*3/uL Normal 1.8-7.7 [facility] Comment on above: Performed By: #### C UU, ADDONUAPLUS #### [facility] [address] [place] [address] [place] Neutrophils/100 WBC (Bld) 86.3 % Normal . [facility] Comment on above: Performed By: #### C UU, ADDONUAPLUS #### [facility] [address] [place] [address] [place] Nucleated RBC/100 WBC (Bld) [Ratio] 0.0 % Normal 0-0.5 [facility] Comment on above: Performed By: #### C UU, ADDONUAPLUS #### [facility] [address] [place] [address] [place] Platelet mean volume (Bld) [Entitic vol] 8.9 fL Normal 6.6-10.1 [facility] Comment on above: Performed By: #### C UU, ADDONUAPLUS #### [facility] [address] [place] [address] [place] Platelets (Bld) [#/Vol] 134 10*3/uL Low 150-450 [facility] Comment on above: Performed By: #### C UU, ADDONUAPLUS #### [facility] [address] [place] [address] RBC (Bld) [#/Vol] 3.49 10*6/uL Low 3.90-5.60 [facility] Comment on above: Performed By: #### C UU, ADDONUAPLUS #### [facility] [address] [place] [address] WBC (Bld) [#/Vol] 8.0 10*3/uL Normal 4.5-11.0 [facility] Comment on above: Performed By: #### C UU, ADDONUAPLUS #### [address] Creatinine, Urine (Random)on 11-21-2021 Creatinine, Urine (Random) 127.0 mg/dL Normal [facility] Comment on above: Result Comment: No r eference range established Performed By: #### C UU, ADDONUAPLUS #### [address] ECH echo transthoracicon ECH echo transthoracic [facility] [place] [address] [place] [address] Echocardiogram Signed Patient: Everette George MR#: [id number] : 1960 Acct:[id number] Age/Sex: 61 / M ADM Date: 11/19/21 Loc: Room: [address] [place] [address] Type: DIS IN Attending Dr: Henny Katz MD Ordering Provider: Lani Luevano DO Date of Service: 11/20/2108/01/1559 ECH/ECH echo transthoracic: abnormal ekg Copies to: MD Lani Gaytan DO Height: 73 in Weight: 350 lb Performed By: LORA Mejia BSA: 2.7 m2 BP: 120/63 mmHg HR: 73 Reason For Study: abnormal ekg History: DM. HTN. HLD. [place] Obesity. PCI. DAGOBERTO. Interpretation Summary Ejection Fraction = 55-60%. The left ventricular size, thickness and function are normal The left ventricular wall motion is normal. A variety of Doppler measurements indicate impaired left ventricular relaxation, which is associated with grade I/IV or mild diastolic dysfunction. There is trace mitral regurgitation. Normal transthoracic echocardiogram. Compared to prior study, there is no significant change. Procedure/Quality: A two-dimensional transthoracic echocardiogram with color flow, Doppler and injection of contrast agent Definity was performed. A two- dimensional transthoracic echocardiogram with color flow and Doppler was performed. Left Ventricle: The left ventricular size, thickness and function are normal. Ejection Fraction = 55-60%. A variety of Doppler measurements indicate impaired left ventricular relaxation, which is associated with grade I/IV or mild diastolic dysfunction. The left ventricular wall motion is normal. Left Atrium: The left atrium appears normal in size. Right Atrium: The right atrium appears normal in size. Right Ventricle: The right ventricular size, thickness and function are normal. Aortic Valve: The aortic valve is normal in structure and function. No aortic regurgitation is present. Mitral Valve: The mitral valve is normal in structure and function. There is trace mitral regurgitation. Tricuspid Valve: The tricuspid valve is normal in structure and function. No tricuspid regurgitation. Pulmonic Valve: The pulmonic valve is normal in structure and function. Arteries: The aortic root is normal size. Pericardium/Pleura: No pericardial effusion seen. There is no pleural effusion. IVC/Hepatic Viens: The inferior vena cava is normal in size, with a normal collapsibility index. Measurements with Normals IVSd: 1.2 cm (0.7-1.1 cm)LVIDd: 5.3 cm (3.7-5.4 cm) LVPWd: 1.1 cm (0.7-1.1 cm)LVIDs: 3.8 cm (2.3-3.6 cm) LA dimension: 4.4 cm(2.3-4.0 cm)Ao root diam: 3.6 cm(2.0-3.6 cm) Doppler with Normals RVSP(TR): 20.9 mmHg (18-35mmHg) MV E max glenis: 71.6 cm/sec(0.8-1.3m/s) MV A max glenis: 72.4 cm/sec(0.0-0.0m/s) MV E/A: 0.99 (<1.5) MMode/2D Measurements Calculations RVDd: 3.2 cm FS: 29.0 % Ao root area: LVLd ap4: 9.0 cm TAPSE: 2.5 cm EDV(Teich): 10.4 cm2 EDV(MOD-sp4): RV S Glenis: 137.0 ml 226.0 ml 17.5 cm/sec ESV(Teich): LVLs ap4: 8.7 cm 61.3 ml ESV(MOD-sp4): EF(Teich): 55.3 % 96.9 ml EF(MOD-sp4): 57.1 % __ SV(MOD-sp4): LAV(MOD-sp4): LA A2 area: 17.5 cm2 129.1 ml 48.9 ml LAV(MOD-sp2): LA A4 area: 19.0 cm2 46.8 ml LA length (vol): 6.0 cm LA vol: 47.1 ml LA vol index: 17.3 ml/m2 Doppler Measurements Calculations MV dec time: MV max PG: E/E' lat: 7.2 MV dec slope: 0.36 sec 46.0 mmHg E/E' med: 14.0 199.2 cm/sec2 __ MR max glenis: TV max PG: TR max glenis: 338.3 cm/sec 18.0 mmHg 211.7 cm/sec MR max PG: TR max P.9 mmHg 17.9 mmHg RAP systole: 3.0 mmHg Transcribed By: ANV Performed At: 11/21/21 1011 Signed By: Ishan Justice MD 11/21/21 1150 [facility] Glucose Poct Glucometerson 0 11-21-2021 Commemt1 Glu2: Cleaned Meter [facility] Comment on above: Result Comment: PERF ORMED BY: [place] [address] PATHOLOGIST LANGUAGES AND LITERATURE INSTRUCTOR RUDY MARIANO M.D. Performed By: #### G LULS #### Point of Care testing , Glucose [Mass/Vol] 160 mg/dL Normal [facility] Comment on above: Result Comment: [place] om Glucose Reference Range is dependent on time and content of last meal. Glucose of more than 200 mg/dL in a nonstressed, ambulatory subject supports the diagnosis of Diabetes Mellitus. Performed By: #### G LULS #### Point of Care testing , Commemt1 Glu2: Cleaned Meter [facility] Comment on above: Result Comment: PERF ORMED BY: [place] [address] PATHOLOGIST LANGUAGES AND LITERATURE INSTRUCTOR RUDY MARIANO M.D. Performed By: #### G LULS #### Point of Care testing , Glucose [Mass/Vol] 174 mg/dL Normal [facility] Comment on above: Result Comment: [place] om Glucose Reference Range is dependent on time and content of last meal. Glucose of more than 200 mg/dL in a nonstressed, ambulatory subject supports the diagnosis of Diabetes Mellitus. Performed By: #### G LULS #### Point of Care testing , Commemt1 Glu2: Cleaned Meter [facility] Comment on above: Result Comment: PERF ORMED BY: [place] [address] PATHOLOGIST LANGUAGES AND LITERATURE INSTRUCTOR RUDY MARIANO M.D. Performed By: #### C UU, ADDONUAPLUS #### [facility] [address] [place] [address] [place] Glucose [Mass/Vol] 194 mg/dL Normal [facility] Comment on above: Result Comment: [place] om Glucose Reference Range is dependent on time and content of last meal. Glucose of more than 200 mg/dL in a nonstressed, ambulatory subject supports the diagnosis of Diabetes Mellitus. Performed By: #### C UU, ADDONUAPLUS #### [facility] [address] [place] [address] Commemt1 Glu2: Cleaned Meter Normal [facility] Comment on above: Result Comment: PERF ORMED BY: [place] [address] PATHOLOGIST LANGUAGES AND LITERATURE INSTRUCTOR RUDY MARIANO M.D. Performed By: #### G LULS #### Point of Care testing , Glucose [Mass/Vol] 122 mg/dL Normal [facility] Comment on above: Result Comment: [facility] Glucose Reference Range is dependent on time and content of last meal. Glucose of more than 200 mg/dL in a nonstressed, ambulatory subject supports the diagnosis of Diabetes Mellitus. Performed By: #### G LULS #### Point of Care testing , Redraw Potassiumon Potassium [Moles/Vol] 3.6 mmol/L Normal 3.5-5.1 [facility] Comment on above: Order Comment: FIRST SPECIMEN HEMOLYZED Result Comment: PERF ORMED BY: [place] [address] PATHOLOGIST LANGUAGES AND LITERATURE INSTRUCTOR RUDY MARIANO M.D. Performed By: #### G LULS #### Point of Care testing , Sodium, Urineon 11-21-2021 Sodium (U) [Moles/Vol] 41.0 mmol/L Normal [facility] Comment on above: Result Comment: No r eference range established Performed By: #### C UU, ADDONUAPLUS #### [address] Total Protein, Urineon 11-21 Protein (U) [Mass/Vol] 148 mg/dL High 0-9 [facility] Comment on above: Result Comment: PERF ORMED BY: [place] [address] PATHOLOGIST LANGUAGES AND LITERATURE INSTRUCTOR RUDY MARIANO M.D. Performed By: #### C UU, ADDONUAPLUS #### [facility] [address] [place] [address] Troponin I High Sensitivityo n 11-21-2021 Troponin I High Sensitivity 482 pg/mL Off scale high 0-20 [facility] Comment on above: Result Comment: Resu lts called at 0036 on 11/21/21 PERFORMED BY: [place] [address] PATHOLOGIST LANGUAGES AND LITERATURE INSTRUCTOR RUDY MARIANO M.D. Performed By: #### C UU, ADDONUAPLUS #### [address] Basic Metabolic Panelon 11-09 Calcium [Mass/Vol] 7.8 mg/dL Low 8.2-10.2 [facility] Comment on above: Performed By: #### G LULS #### Point of Care testing , Chloride [Moles/Vol] 98 mmol/L Normal 95-114 [facility] Comment on above: Performed By: #### G LULS #### Point of Care testing , CO2 [Moles/Vol] 19.8 mmol/L Low 22.0-30.0 [facility] Comment on above: Performed By: #### G LULS #### Point of Care testing , Creatinine [Mass/Vol] 2.19 mg/dL High 0.64-1.27 [facility] Comment on above: Performed By: #### G LULS #### Point of Care testing , Creatinine Clr Calc Pharmacy 56.54 [facility] Comment on above: Result Comment: PERF ORMED BY: [place] [address] PATHOLOGIST LANGUAGES AND LITERATURE INSTRUCTOR RUDY MARIANO M.D. Performed By: #### G LULS #### Point of Care testing , Estimated GFR ( [place] [facility] Comment on above: Result Comment: GFR estimated reference range: According to KDOQI guidelines, <60 ml/min/1.73m2 is sufficient to diagnose a patient with chronic kidney disease. Performed By: #### G LULS #### Point of Care testing , Estimated GFR (Non- Am 31 [facility] Comment on above: Performed By: #### G LULS #### Point of Care testing , Glucose [Mass/Vol] 301 mg/dL High 70-100 [facility] Comment on above: Result Comment: [place] Glucose Reference Range is dependent on time and content of last meal. Glucose of more than 200 mg/dL in a nonstressed, ambulatory subject supports the diagnosis of Diabetes Mellitus. ADA recommended reference range Performed By: #### G LULS #### Point of Care testing , Potassium [Moles/Vol] 4.1 mmol/L Normal 3.5-5.1 [facility] Comment on above: Performed By: #### G LULS #### Point of Care testing , Sodium [Moles/Vol] 129 mmol/L Low 136-146 [facility] Comment on above: Performed By: #### G LULS #### Point of Care testing , Urea nitrogen [Mass/Vol] 36 mg/dL High 9-23 [facility] Comment on above: Performed By: #### G LULS #### Point of Care testing , Complete Blood Count Auto Di ffon 11-20-2021 Basophils (Bld) [#/Vol] 0.0 10*3/uL Normal 0.0-0.2 [facility] Comment on above: Result Comment: PERF ORMED BY: [facility] [address] [place] [address] PATHOLOGIST LANGUAGES AND LITERATURE INSTRUCTOR RUDY MARIANO M.D. Performed By: #### G LULS #### Point of Care testing , Basophils/100 WBC (Bld) 0.1 % Normal . [facility] Comment on above: Performed By: #### G LULS #### Point of Care testing , Eosinophils (Bld) [#/Vol] 0.0 10*3/uL Normal 0.0-0.45 [facility] Comment on above: Performed By: #### G LULS #### Point of Care testing , Eosinophils/100 WBC (Bld) 0.1 % Normal . [facility] Comment on above: Performed By: #### G LULS #### Point of Care testing , Erythrocyte distribution width (RBC) [Ratio] 13.6 % Normal 12.0-14.8 [facility] Comment on above: Performed By: #### G APOORVA #### Point of Care testing , Hematocrit (Bld) [Volume fraction] 34.4 % Low 38.8-50.0 [facility] Comment on above: Performed By: #### G AMARILS #### Point of Care testing , Hemoglobin (Bld) [Mass/Vol] 11.7 g/dL Low 13.0-17.0 [facility] Comment on above: Performed By: #### G AMARILS #### Point of Care testing , Lymphocytes (Bld) [#/Vol] 0.2 10*3/uL Low 1.00-4.8 [facility] Comment on above: Performed By: #### G APOORVA #### Point of Care testing , Lymphocytes/100 WBC (Bld) 2.1 % Normal . [facility] Comment on above: Performed By: #### Sarthak FITZPATRICKLS #### Point of Care testing , MCH (RBC) [Entitic mass] 30.3 pg Normal 27.5-35.2 [facility] Comment on above: Performed By: #### G APOORVA #### Point of Care testing , MCV (RBC) [Entitic vol] 89.3 fL Normal 83.5-101 [facility] Comment on above: Performed By: #### G AMARILS #### Point of Care testing , Mean Corpuscular HGB Conc 33.9 g/dL Normal 32.5-35.6 [facility] Comment on above: Performed By: #### G APOORVA #### Point of Care testing , Monocytes (Bld) [#/Vol] 0.5 10*3/uL Normal 0.0-0.8 [facility] Comment on above: Performed By: #### G AMARILS #### Point of Care testing , Monocytes/100 WBC (Bld) 4.7 % Normal . [facility] Comment on above: Performed By: #### G AMARILS #### Point of Care testing , Neutrophils (Bld) [#/Vol] 10.0 10*3/uL High 1.8-7.7 [facility] Comment on above: Performed By: #### G LULS #### Point of Care testing , Neutrophils/100 WBC (Bld) 93.0 % Normal . [facility] Comment on above: Performed By: #### G AMARILS #### Point of Care testing , Nucleated RBC/100 WBC (Bld) [Ratio] 0.0 % Normal 0-0.5 [facility] Comment on above: Performed By: #### G LULS #### Point of Care testing , Platelet mean volume (Bld) [Entitic vol] 8.9 fL Normal 6.6-10.1 [facility] Comment on above: Performed By: #### G APOORVA #### Point of Care testing , Platelets (Bld) [#/Vol] 133 10*3/uL Low 150-450 [facility] Comment on above: Performed By: #### G AMARILS #### Point of Care testing , RBC (Bld) [#/Vol] 3.86 10*6/uL Low 3.90-5.60 [facility] Comment on above: Performed By: #### G AMARILS #### Point of Care testing , WBC (Bld) [#/Vol] 10.7 10*3/uL Normal 4.5-11.0 [facility] Comment on above: Performed By: #### G APOORVA #### Point of Care testing , ECG 12 lead ECGon 11-20-2021 ECG 12 lead ECG [facility] [place] [address] Electrocardiograph Report Signed Patient: Everette George MR#: [id number] : 1960 Acct:[id number] Age/Sex: 61 / M ADM Date: 11/19/21 Loc: Room: [address] [place] [address] Type: DIS IN Attending Dr: Henny Katz MD Ordering Provider: Rafat Savage MD Date of Service: 11/20/2108/01/1416 ECG/ECG 12 lead ECG: EKG changes Copies to: Test Reason : Blood Pressure : / mmHG Vent. Rate : 085 BPM Atrial Rate : 085 BPM P-R Int : 168 ms QRS Dur : 082 ms QT Int : 406 ms P-R-T Axes : 032 -28 166 degrees QTc Int : 483 ms Normal sinus rhythm Prolonged QT Abnormal ECG When compared with ECG of 19-NOV-2021 13:47, (Unconfirmed) No significant change was found Confirmed by SANJU BEARD DO ([id number]) on 11/20/2021 4:44:16 PM Referred By: Electronically Signed By:SANJU BEARD DO Transcribed By: MUS Signed By Sanju Beard DO 11/[address] [facility] Glucose Poct Glucometerson 0 11-20-2021 Commemt1 Glu2: Cleaned Meter Normal [facility] Comment on above: Result Comment: PERF ORMED BY: [place] [address] PATHOLOGIST LANGUAGES AND LITERATURE INSTRUCTOR RUDY MARIANO M.D. Performed By: #### G LULS #### Point of Care testing , Glucose [Mass/Vol] 162 mg/dL Normal [facility] Comment on above: Result Comment: [facility] Glucose Reference Range is dependent on time and content of last meal. Glucose of more than 200 mg/dL in a nonstressed, ambulatory subject supports the diagnosis of Diabetes Mellitus. Performed By: #### G LULS #### Point of Care testing , Glucose [Mass/Vol] 185 mg/dL Normal [facility] Comment on above: Result Comment: [facility] Glucose Reference Range is dependent on time and content of last meal. Glucose of more than 200 mg/dL in a nonstressed, ambulatory subject supports the diagnosis of Diabetes Mellitus. PERFORMED BY: [place] [address] PATHOLOGIST LANGUAGES AND LITERATURE INSTRUCTOR RUDY MARIANO M.D. Performed By: #### B PROCESSING REP #### [address] Glucose [Mass/Vol] 223 mg/dL Normal [facility] Comment on above: Result Comment: [facility] Glucose Reference Range is dependent on time and content of last meal. Glucose of more than 200 mg/dL in a nonstressed, ambulatory subject supports the diagnosis of Diabetes Mellitus. PERFORMED BY: [place] [address] PATHOLOGIST LANGUAGES AND LITERATURE INSTRUCTOR RUDY MARIANO M.D. Performed By: #### G LULS #### Point of Care testing , Glucose [Mass/Vol] 242 mg/dL Normal [facility] Comment on above: Result Comment: [place] [facility] Glucose Reference Range is dependent on time and content of last meal. Glucose of more than 200 mg/dL in a nonstressed, ambulatory subject supports the diagnosis of Diabetes Mellitus. PERFORMED BY: [place] [address] PATHOLOGIST LANGUAGES AND LITERATURE INSTRUCTOR RUDY MARIANO M.D. Performed By: #### G LULS #### Point of Care testing , Commemt1 Glu2: Cleaned Meter Normal [facility] Comment on above: Result Comment: PERF ORMED BY: [place] [address] PATHOLOGIST LANGUAGES AND LITERATURE INSTRUCTOR RUDY MARIANO M.D. Performed By: #### G LULS #### Point of Care testing , Glucose [Mass/Vol] 273 mg/dL Normal [facility] Comment on above: Result Comment: [place] om Glucose Reference Range is dependent on time and content of last meal. Glucose of more than 200 mg/dL in a nonstressed, ambulatory subject supports the diagnosis of Diabetes Mellitus. Performed By: #### G LULS #### Point of Care testing , Lactic Acidon 11-20-2021 Lactate [Moles/Vol] 1.6 mmol/L Normal 0.5-2.2 [facility] Comment on above: Result Comment: PERF ORMED BY: [place] [address] PATHOLOGIST LANGUAGES AND LITERATURE INSTRUCTOR RUDY MARIANO M.D. Performed By: #### C UU, ADDONUAPLUS #### [address] Troponin I High Sensitivityo n 11-20-2021 Troponin I High Sensitivity 674 pg/mL Off scale high 0-20 [facility] Comment on above: Result Comment: Resu lts called at 1804 on 11/20/21 PERFORMED BY: [place] [address] PATHOLOGIST LANGUAGES AND LITERATURE INSTRUCTOR RUDY MARIANO M.D. Performed By: #### B PROCESSING REP #### [facility] [address] [place] [address] Troponin I High Sensitivity 736 pg/mL Off scale high 0-20 [facility] Comment on above: Result Comment: Resu lts called at 1717 on 11/20/21 PERFORMED BY: [place] [address] PATHOLOGIST LANGUAGES AND LITERATURE INSTRUCTOR RUDY MARIANO M.D. Performed By: #### C UU, ADDONUAPLUS #### [address] A1C with Estimated Average G luon 11-19-2021 Glucose [Mass/Vol] 166 mg/dL Normal [facility] Comment on above: Result Comment: PERF ORMED BY: [place] [address] PATHOLOGIST LANGUAGES AND LITERATURE INSTRUCTOR RUDY MARIANO M.D. Performed By: #### A 1C WT eA #### [address] HbA1c (Bld) [Mass fraction] 7.4 % High 4.3-5.6 [facility] Comment on above: Result Comment: Incr eased risk for diabetes: 5.7 - 6.4 diabetes: >6.4 glycemic control for adults with diabetes: <7.0 Performed By: #### A 1C WT eA #### [address] B-Type Natriuretic Peptideon 11-19-2021 Natriuretic peptide B (Bld) [Mass/Vol] 343.0 pg/mL High 5-100 [facility] Comment on above: Result Comment: PERF ORMED BY: [place] [address] PATHOLOGIST LANGUAGES AND LITERATURE INSTRUCTOR RUDY MARIANO M.D. Performed By: #### B PROCESSING REP #### [address] Blood Cultureon 11-19-2021 Bacteria identified Cx Nom (Bld) Results called at 0752 on 11/20/21 Gram Stain Gram Negative Bacilli ORGANISM: Escherichia coli (O:ESCCOL) Organism Comments For CLAUDIA Refer to Final Report of Blood Culture Collected Date 11/19/21 PERFORMED BY: [place] [address] PATHOLOGIST LANGUAGES AND LITERATURE INSTRUCTOR RUDY MARIANO M.D. [facility] Comment on above: Performed By: #### G LULS #### Point of Care testing , Bacteria identified Cx Nom (Bld) [employer] BCID Panel results called at 0423 on 11/20/21 Gram Stain Gram Negative Bacilli ORGANISM: Escherichia coli (O:ESCCOL) Aerobic CLAUDIA Charge (NUC86) ---- SUSCEPTIBILITY --- ORGANISM: O:ESCCOL ANTIBIOTIC INTERPRETATION CLAUDIA Amikacin S <16 Ampicillin S <8 Ampicillin/Sulbactam S <8/4 Aztreonam S <4 Cefazolin S <2 Cefepime S <2 Ceftazidime S <1 Ceftazidime/Avibactam S <8 Ceftriaxone S <1 Ciprofloxacin S <1 Ertapenem S <0.5 Gentamicin S <4 Levofloxacin S <2 Meropenem S <1 Piperacillin/Tazobact am S <16 Tetracycline S <4 Tigecycline S <2 Tobramycin S <4 Trimethoprim/Sulfamet hoxazole S <2/38 [employer] BCID Panel results called at 0423 on 11/20/21 Acinetobacter baumannii Not detected Staphylococcus aureus Not detected Lizzie albicans Not detected E. Coli Detected E. cloacae complex Not detected Enterococcus Not detected Enterobacteriaceae Detected Lizzie glabrata Not detected Haemophilus influenzae Not detected Klebsiella oxytoca Not detected Klebsiella pneumoniae Not detected KPC resistance gene Not detected Lizzie krusei Not detected Listeria monocytogenes Not detected mecA resistance gene Not Applicable Neisseria meningitidis Not detected Lizzie parapsilosis Not detected Streptococcus pneumoniae Not detected Proteus Not detected Pseudomonas aeruginosa Not detected Serratia marcescens Not detected Staphylococcus Not detected Streptococcus Not detected S. pyogenes (Group A) Not detected S. agalactiae (Group B) Not detected Lizzie tropicalis Not detected Guille/B resistance gene Not Applicable KPC Comment A Not Detected result for the KPC gene does not KPC Comment 2 indicate susceptibility to carbapenems. S = SUSCEPTIBLE I = INTERMEDIATE R = RESISTANT BLANK = DATA NOT AVAILABLE, OR DRUG NOT ADVISABLE OR TESTED R* = RESISTANCE DUE TO EXTENDED SPECTRUM BETA-LACTAMASES ESBL = EXTENDED SPECTRUM BETA-LACTAMASE TFG = THYMIDINE-DEPENDENT STRAIN SMITA = BETA-LACTAMASE POSITIVE IB = INDUCIBLE BETA-LACTAMASE. APPEARS IN PLACE OF 'S' WITH SPECIES KNOWN TO POSSESS INDUCIBLE BETA-LACTAMASES. POTENTIALLY THEY MAY BECOME RESISTANT TO ALL B-LACTAM DRUGS. PERFORMED BY: [place] [address] [place] [address] PATHOLOGIST LANGUAGES AND LITERATURE INSTRUCTOR RUDY MARIANO M.D. [facility] Comment on above: Performed By: #### G APOORVA #### Point of Care testing , COVID-19 Antigenon 2 COVID-19 Antigen Healthcare Worker?: N [place] Reference [place] Reference Negative SARS-CoV+SARS-CoV-2 (COVID-19) Ag [Presence] in Respiratory specimen by Rapid immunoassay Negative for SARS Antigen by ELIDA Blank Space COVID19 Blank Space [place] Disclaimer Negative results, from patients with symptom [place] Disclaimer onset beyond five days, should be treated as [place] Disclaimer presumptive and confirmation with a molecular [place] Disclaimer assay, if necessary, for patient management, [place] Disclaimer may be performed. Negative results do not rule [place] Disclaimer out COVID-19 and should not be used as the sole [place] Disclaimer basis for treatment or patient management [place] Disclaimer decisions, including infection control decisions. [place] Disclaimer Negative results should be considered in the [place] Disclaimer context of a patient's recent exposures, history [place] Disclaimer and the presence of clinical signs and symptoms [place] Disclaimer consistent with COVID-19. COVID19 Blank Space [place] Disclaimer The [place] SARS Antigen ELIDA does not differentiate [place] Disclaimer between SARS-CoV and SARS-CoV-2. COVID19 Blank Space [place] Disclaimer This test was developed and its performance [place] Disclaimer characteristic determined by [employer] and [place] Disclaimer validated at [facility]. This [place] Disclaimer test has not been FDA cleared or approved. This [place] Disclaimer test has been authorized by FDA under an Emergency Use [place] Disclaimer Authorization (EUA). This test has been validated [place] Disclaimer in accordance with the FDA's Guidance Document (Policy [place] Disclaimer for Diagnostics Testing in Laboratories Certified to [place] Disclaimer Perform High Complexity Testing under CLIA prior to [place] Disclaimer Emergency Use Authorization for Coronavirus [place] Disclaimer iseas during the Public Health Emergency) [place] Disclaimer issued on November 11, 2019. This test is only authorized [place] Disclaimer for the duration of time the declaration that [place] Disclaimer circumstances exist justifying the authorization of [place] Disclaimer the emergency use of in vitro diagnostic tests for [place] Disclaimer detection of SARS-CoV-2 virus and/or diagnosis of [place] Disclaimer COVID-19 infection under section 564(b)(1) of the [place] Disclaimer Act, 21 U.S.C. 360bbb-3(b)(1), unless the [place] Disclaimer authorization is terminated or revoked sooner. PERFORMED BY: [address] [place] [address] PATHOLOGIST LANGUAGES AND LITERATURE INSTRUCTOR RUDY MARIANO M.D. Normal [facility] Comment on above: Performed By: #### B PROCESSING REP #### [facility] [address] [place] [address] [facility] COVID-19 [facility] 11-19-2021 SARS-CoV-2 (COVID-19) RNA JO ANN+probe Ql (Unsp spec) Negative Normal Negative [facility] Comment on above: Order Comment: Healt hcare Worker?: N Result Comment: Testing for SARS-CoV-2 by RT-PCR This test was developed and its performance characteristics determined by [employer] and validated at the [facility]. This test has not been FDA cleared or approved. This test has been authorized by FDA under an Emergency Use Authorization (EUA). This test has been validated in accordance with the FDA's Guidance Document (Policy for Diagnostics Testing in Laboratories Certified to Perform High Complexity Testing under CLIA prior to Emergency Use Authorization for Coronavirus Disease-2019 during the Public Health Emergency) issued on November 11, 2019. This test is only authorized for the duration of time the declaration that circumstances exist justifying the authorization of the emergency use of in vitro diagnostic tests for detection of SARS-CoV-2 virus and/or diagnosis of COVID-19 infection under section 564(b)(1) of the Act, 21 U.S.C. 360bbb-3(b)(1), unless the authorization is terminated or revoked sooner. PERFORMED BY: [address] [place] [address] PATHOLOGIST LANGUAGES AND LITERATURE INSTRUCTOR RUDY MARIANO M.D. Performed By: #### B PROCESSING REP #### [address] [address] [facility] [address] abdomen pelvis wo conon 0 11-19-2021 CT abdomen pelvis wo con [facility] [address] [place] [address] CT Scan Report Signed Patient: Everette George MR#: [id number] : 1960 Acct:[id number] Age/Sex: 61 / M ADM Date: 11/19/21 Loc: ER Room: Type: [facility] ER Attending Dr: Ordering Provider: Joe Bartlett MD Date of Service: 11/19/21 CT/CT abdomen pelvis wo con: [facility] Copies to: Joe Bartlett MD CT ABDOMEN AND PELVIS WITHOUT INTRAVENOUS CONTRAST: CLINICAL HISTORY: Nausea vomiting weakness fevers frequent urination for 2 days. COMPARISON: None TECHNIQUE: Spiral images were obtained through the abdomen and pelvis without intravenous contrast. This CT exam was performed using one or more following dose reduction techniques: Automated exposure control, adjustment of the mA and/or kV according to patient size, or use of iterative reconstruction technique. FINDINGS: Lung Bases: [Minimal atelectasis/scarring. ] Organs:Suboptimal evaluation due to lack of IV contrast. Hepatic steatosis. Gallbladder pancreas spleen and adrenal glands all appear unremarkable. Bilateral nephrolithiasis, largest measuring 8 mm within left kidney. Obstructing left UPJ stone measuring 5 mm with adjacent gas seen within the ureter. Abdominal aorta appears normal caliber.[ GI: Stomach is grossly unremarkable. Small bowel appears nondilated. Left colon diverticulosis. Appendix is normal.[ Pelvis:[Urinary bladder is grossly unremarkable. Prostate gland is normal in size.] Peritoneum/Retroperit oneum:No free air, free fluid or lymphadenopathy.[ Abd wall/Bones:Abdominal wall demonstrates no acute findings. Osseous structures demonstrate degenerative change. Partially visualized right hip prosthesis.[ CT/CT abdomen pelvis wo con IMPRESSION: Obstructing left UVJ stone measuring 5 mm. Small amount of adjacent gas is seen within the proximal left ureter. Superimposed infectious process cannot be excluded. Additional bilateral nonobstructing stones, largest measuring 8 mm within the left kidney. Impression dictated by: Ian Butler Jr., D.O.11/19/2021 3:45 PM Dictation Location: [place] [address] Transcribed By: [facility] 11/19/21 1540 Dictated By: Ian Butler Jr, DO 11/19/21 1537 Signed By: 11/19/[address] [facility] Complete Blood Count Auto Di ffon 11-19-2021 Basophils (Bld) [#/Vol] 0.0 10*3/uL Normal 0.0-0.2 [facility] Comment on above: Result Comment: PERF ORMED BY: [facility] [place] [address] PATHOLOGIST LANGUAGES AND LITERATURE INSTRUCTOR RUDY MARIANO M.D. Performed By: #### G LULS #### Point of Care testing , Basophils/100 WBC (Bld) 0.2 % Normal . [facility] Comment on above: Performed By: #### G LULS #### Point of Care testing , Eosinophils (Bld) [#/Vol] 0.0 10*3/uL Normal 0.0-0.45 [facility] Comment on above: Performed By: #### G LULS #### Point of Care testing , Eosinophils/100 WBC (Bld) 0.0 % Normal . [facility] Comment on above: Performed By: #### G LULS #### Point of Care testing , Erythrocyte distribution width (RBC) [Ratio] 13.6 % Normal 12.0-14.8 [facility] Comment on above: Performed By: #### G LULS #### Point of Care testing , Hematocrit (Bld) [Volume fraction] 39.2 % Normal 38.8-50.0 [facility] Comment on above: Performed By: #### G LULS #### Point of Care testing , Hemoglobin (Bld) [Mass/Vol] 13.0 g/dL Normal 13.0-17.0 [facility] Comment on above: Performed By: #### G LULS #### Point of Care testing , Lymphocytes (Bld) [#/Vol] 0.3 10*3/uL Low 1.00-4.8 [facility] Comment on above: Performed By: #### G LULS #### Point of Care testing , Lymphocytes/100 WBC (Bld) 2.0 % Normal . [facility] Comment on above: Performed By: #### G LULS #### Point of Care testing , MCH (RBC) [Entitic mass] 29.9 pg Normal 27.5-35.2 [facility] Comment on above: Performed By: #### Sarthak GUERIN #### Point of Care testing , MCV (RBC) [Entitic vol] 90.0 fL Normal 83.5-101 [facility] Comment on above: Performed By: #### Sarthak GUERIN #### Point of Care testing , Mean Corpuscular HGB Conc 33.2 g/dL Normal 32.5-35.6 [facility] Comment on above: Performed By: #### Sarthak GUERIN #### Point of Care testing , Monocytes (Bld) [#/Vol] 0.7 10*3/uL Normal 0.0-0.8 [facility] Comment on above: Performed By: #### Sarthak GUERIN #### Point of Care testing , Monocytes/100 WBC (Bld) 4.3 % Normal . [facility] Comment on above: Performed By: #### Sarthak GUERIN #### Point of Care testing , Neutrophils (Bld) [#/Vol] 15.4 10*3/uL High 1.8-7.7 [facility] Comment on above: Performed By: #### Sarthak GUERIN #### Point of Care testing , Neutrophils/100 WBC (Bld) 93.5 % Normal . [facility] Comment on above: Performed By: #### Sarthak GUERIN #### Point of Care testing , Nucleated RBC/100 WBC (Bld) [Ratio] 0.0 % Normal 0-0.5 [facility] Comment on above: Performed By: #### Sarthak GUERIN #### Point of Care testing , Platelet mean volume (Bld) [Entitic vol] 8.7 fL Normal 6.6-10.1 [facility] Comment on above: Performed By: #### Sarthak GUERIN #### Point of Care testing , Platelets (Bld) [#/Vol] 177 10*3/uL Normal 150-450 [facility] Comment on above: Performed By: #### Sarthak GUERIN #### Point of Care testing , RBC (Bld) [#/Vol] 4.36 10*6/uL Normal 3.90-5.60 [facility] Comment on above: Performed By: #### Sarthak GUERIN #### Point of Care testing , WBC (Bld) [#/Vol] 16.4 10*3/uL High 4.5-11.0 [facility] Comment on above: Performed By: #### Sarthak GUERIN #### Point of Care testing , Comprehensive Metabolic Pane faustino 11-19-2021 Albumin [Mass/Vol] 3.3 g/dL Normal 3.2-5.5 [facility] Comment on above: Performed By: #### Sarthak GUERIN #### Point of Care testing , Albumin/Globulin [Mass ratio] 1.0 {ratio} Normal [facility] Comment on above: Performed By: #### Sarthak GUERIN #### Point of Care testing , ALP [Catalytic activity/Vol] 100 U/L High 32-92 [facility] Comment on above: Performed By: #### Sarthak GUERIN #### Point of Care testing , ALT [Catalytic activity/Vol] 23 U/L Normal 10-60 [facility] Comment on above: Performed By: #### Sarthak GUERIN #### Point of Care testing , AST [Catalytic activity/Vol] 26 U/L Normal 10-42 [facility] Comment on above: Performed By: #### Sarthak FITZPATRICKLS #### Point of Care testing , Bilirubin [Mass/Vol] 1.6 mg/dL High 0.3-1.2 [facility] Comment on above: Result Comment: Samp les from patients who have taken Naproxen have shown spurious elevation in Total Bilirubin levels. A metabolite of Naproxen, O-desmethylnaproxen, has been shown to interfere with the Jenloren-Shilpa method for measuring Total Bilirubin. Performed By: #### Sarthak FITZPATRICKLS #### Point of Care testing , Calcium [Mass/Vol] 8.3 mg/dL Normal 8.2-10.2 [facility] Comment on above: Performed By: #### Sarthak FITZPATRICKLS #### Point of Care testing , Chloride [Moles/Vol] 93 mmol/L Low 95-114 [facility] Comment on above: Performed By: #### G LULS #### Point of Care testing , CO2 [Moles/Vol] 21.9 mmol/L Low 22.0-30.0 [facility] Comment on above: Performed By: #### G LULS #### Point of Care testing , Creatinine [Mass/Vol] 2.28 mg/dL High 0.64-1.27 [facility] Comment on above: Performed By: #### G LULS #### Point of Care testing , Creatinine Clr Calc Pharmacy 54.31 [facility] Comment on above: Result Comment: PERF ORMED BY: [facility] [address] [address] PATHOLOGIST LANGUAGES AND LITERATURE INSTRUCTOR RUDY MARIANO M.D. Performed By: #### G LULS #### Point of Care testing , Estimated GFR ( [place] [facility] Comment on above: Result Comment: GFR estimated reference range: According to KDOQI guidelines, <60 ml/min/1.73m2 is sufficient to diagnose a patient with chronic kidney disease. Performed By: #### G LULS #### Point of Care testing , Estimated GFR (Non- Am [facility] Comment on above: Performed By: #### G LULS #### Point of Care testing , Globulin (S) [Mass/Vol] 3.4 g/dL [facility] Comment on above: Performed By: #### G LULS #### Point of Care testing , Glucose [Mass/Vol] 345 mg/dL High 70-100 [facility] Comment on above: Result Comment: [place] om Glucose Reference Range is dependent on time and content of last meal. Glucose of more than 200 mg/dL in a nonstressed, ambulatory subject supports the diagnosis of Diabetes Mellitus. ADA recommended reference range Performed By: #### G LULS #### Point of Care testing , Potassium [Moles/Vol] 4.6 mmol/L Normal 3.5-5.1 [facility] Comment on above: Performed By: #### G LULS #### Point of Care testing , Protein [Mass/Vol] 6.7 g/dL Normal 6.1-7.9 [facility] Comment on above: Performed By: #### G LULS #### Point of Care testing , Sodium [Moles/Vol] 128 mmol/L Low 136-146 [facility] Comment on above: Performed By: #### G LULS #### Point of Care testing , Urea nitrogen [Mass/Vol] 35 mg/dL High 9-23 [facility] Comment on above: Performed By: #### G LULS #### Point of Care testing , Dipstick and Microscopicon 0 11-19-2021 Appearance (U) Cloudy Critically abnormal Clear [facility] Comment on above: Order Comment: Name Collection Type:: Clean-Voided Midstream Performed By: #### C UU, ADDONUAPLUS #### [facility] [address] [place] [address] [place] Bacteria,Urine 4+ High None Seen [facility] Comment on above: Order Comment: Name Collection Type:: Clean-Voided Midstream Performed By: #### C UU, ADDONUAPLUS #### [facility] [address] [place] [address] [place] Bilirubin,Urine Negative Normal Negative [facility] Comment on above: Order Comment: Name Collection Type:: Clean-Voided Midstream Performed By: #### C UU, ADDONUAPLUS #### [facility] [address] [place] [address] [place] Color (U) Yellow Normal Yellow [facility] Comment on above: Order Comment: Name Collection Type:: Clean-Voided Midstream Performed By: #### C UU, ADDONUAPLUS #### [facility] [address] [place] [address] [place] Glucose Ql (U) 500 mg/dL High Normal [facility] Comment on above: Order Comment: Name Collection Type:: Clean-Voided Midstream Performed By: #### C UU, ADDONUAPLUS #### [facility] [address] [place] [address] [place] Hyaline Casts,Urine 0-8 Normal 0-8 [facility] Comment on above: Order Comment: Name Collection Type:: Clean-Voided Midstream Result Comment: PERF ORMED BY: [place] [address] PATHOLOGIST LANGUAGES AND LITERATURE INSTRUCTOR RUDY MARIANO M.D. Performed By: #### C UU, ADDONUAPLUS #### [address] Ketones Ql (U) 1+ High Negative [facility] Comment on above: Order Comment: Name Collection Type:: Clean-Voided Midstream Performed By: #### C UU, ADDONUAPLUS #### [address] Leukocyte esterase Test strip Ql (U) 3+ High Negative [facility] Comment on above: Order Comment: Name Collection Type:: Clean-Voided Midstream Performed By: #### C UU, ADDONUAPLUS #### [address] Nitrite,Urine Positive High Negative [facility] Comment on above: Order Comment: Name Collection Type:: Clean-Voided Midstream Performed By: #### C UU, ADDONUAPLUS #### [address] Occult Blood,Urine 2+ High Negative [facility] Comment on above: Order Comment: Name Collection Type:: Clean-Voided Midstream Result Comment: PERF ORMED BY: [place] [address] PATHOLOGIST LANGUAGES AND LITERATURE INSTRUCTOR RUDY MARIANO M.D. Performed By: #### C UU, ADDONUAPLUS #### [address] pH (U) 5.0 [pH] Normal 5.0-9.0 [facility] Comment on above: Order Comment: Name Collection Type:: Clean-Voided Midstream Performed By: #### C UU, ADDONUAPLUS #### [address] Protein (U) [Mass/Vol] 300 mg/dL High Negative [facility] Comment on above: Order Comment: Name Collection Type:: Clean-Voided Midstream Performed By: #### C UU, ADDONUAPLUS #### [facility] [address] [place] [address] RBC,Urine 1-2 Normal 0-4 [facility] Comment on above: Order Comment: Name Collection Type:: Clean-Voided Midstream Performed By: #### C UU, ADDONUAPLUS #### [address] Specificy [place],Urine 1.019 Normal 1.001-1.030 [facility] Comment on above: Order Comment: Name Collection Type:: Clean-Voided Midstream Performed By: #### C UU, ADDONUAPLUS #### [address] Squamous Epithelial Cell,Urine 0-1 Normal 0-2 [facility] Comment on above: Order Comment: Name Collection Type:: Clean-Voided Midstream Performed By: #### C UU, ADDONUAPLUS #### [address] Urobilinogen,Urine Normal Normal Normal [facility] Comment on above: Order Comment: Name Collection Type:: Clean-Voided Midstream Performed By: #### C UU, ADDONUAPLUS #### [facility] [address] [place] [address] [place] WBC,Urine Innumerable High 0-4 [facility] Comment on above: Order Comment: Name Collection Type:: Clean-Voided Midstream Performed By: #### C UU, ADDONUAPLUS #### [place] [address] [place] ECG 12 lead ECGon 11-19-2021 ECG 12 lead ECG [facility] [place] [address] [place] [address] Electrocardiograph Report Signed Patient: Everette George MR#: [id number] : 1960 Acct:[id number] Age/Sex: 61 / M ADM Date: 11/19/21 Loc: Room: [address] [place] [address] Type: DIS IN Attending Dr: Henny Katz MD Ordering Provider: Joe Bartlett MD Date of Service: 11/19/2107/02/1347 ECG/ECG 12 lead ECG: pain Copies to: Test Reason : Blood Pressure : / mmHG Vent. Rate : 097 BPM Atrial Rate : 097 BPM P-R Int : 172 ms QRS Dur : 080 ms QT Int : 390 ms P-R-T Axes : 024 -21 141 degrees QTc Int : 495 ms Normal sinus rhythm Prolonged QT Abnormal ECG When compared with ECG of 16-OCT-2018 14:09, T wave inversion more evident in Anterolateral leads QT has lengthened Confirmed by SANJU BEARD DO ([id number]) on 11/20/2021 4:44:06 PM Referred By: Electronically Signed By:SANJU BEARD DO Transcribed By: MUS Signed By Sanju Beard DO 11/[address] [facility] Lactic Acidon 11-19-2021 Lactate [Moles/Vol] 2.2 mmol/L Off scale high 0.5-2.2 [facility] Comment on above: Result Comment: Resu lts called at 1713 on 11/19/21 PERFORMED BY: [place] [address] PATHOLOGIST LANGUAGES AND LITERATURE INSTRUCTOR RUDY MARIANO M.D. Performed By: #### B PROCESSING REP #### [address] Lactic Acid Reflexon 022 Lactic Acid Reflex 2.0 mmol/L Off scale high 0.5-2.2 [facility] Comment on above: Order Comment: and o n his way up per stephen russell Result Comment: Resu lts called at 2210 on 11/19/21 PERFORMED BY: [place] [address] PATHOLOGIST LANGUAGES AND LITERATURE INSTRUCTOR RUDY MARIANO M.D. Performed By: #### G LULS #### Point of Care testing , Zuleyka Ag Negativeon 11-20-19 Zuleyka Ag Negative Negative Normal Negative [facility] Comment on above: Result Comment: This is a duplicate Zuleyka SARS Antigen (ELIDA) result to be used for statistical tracking purpose only. PERFORMED BY: [place] [address] PATHOLOGIST LANGUAGES AND LITERATURE INSTRUCTOR RUDY MARIANO M.D. Performed By: #### B PROCESSING REP #### [address] Urine Cultureon 11-19-2021 Bacteria identified Cx Nom (U) ORGANISM: Escherichia coli (O:ESCCOL) [place] Count >100,000 Aerobic CLAUDIA Charge (NUC86) ---- SUSCEPTIBILITY --- ORGANISM: O:ESCCOL ANTIBIOTIC INTERPRETATION CLAUDIA Amikacin S <16 Ampicillin S <8 Ampicillin/Sulbactam S <8/4 Aztreonam S <4 Cefazolin S <2 Cefepime S <2 Ceftazidime S <1 Ceftazidime/Avibactam S <8 Ceftriaxone S <1 Ciprofloxacin S <1 Ertapenem S <0.5 Gentamicin S <4 Levofloxacin S <2 Meropenem S <1 Nitrofurantoin S <32 Piperacillin/Tazobact am S <16 Tetracycline S <4 Tigecycline S <2 Tobramycin S <4 Trimethoprim/Sulfamet hoxazole S <2/38 S = SUSCEPTIBLE I = INTERMEDIATE R = RESISTANT BLANK = DATA NOT AVAILABLE, OR DRUG NOT ADVISABLE OR TESTED R* = RESISTANCE DUE TO EXTENDED SPECTRUM BETA-LACTAMASES ESBL = EXTENDED SPECTRUM BETA-LACTAMASE TFG = THYMIDINE-DEPENDENT STRAIN SMITA = BETA-LACTAMASE POSITIVE IB = INDUCIBLE BETA-LACTAMASE. APPEARS IN PLACE OF 'S' WITH SPECIES KNOWN TO POSSESS INDUCIBLE BETA-LACTAMASES. POTENTIALLY THEY MAY BECOME RESISTANT TO ALL B-LACTAM DRUGS. PERFORMED BY: [place] [address] PATHOLOGIST LANGUAGES AND LITERATURE INSTRUCTOR RUDY MARIANO M.D. Normal [facility] Comment on above: Performed By: #### C UU, ADDONUAPLUS #### [facility] [address] [place] [id number] [place] XR chest 1V portableon 11-19 XR chest 1V portable [facility] [place] [address] [place] [id number] XRay Report Signed Patient: Everette George MR#: [id number] : 1960 Acct:[id number] Age/Sex: 61 / M ADM Date: 11/19/21 Loc: ER Room: Type: [facility] ER Attending Dr: Ordering Provider: Joe Bartlett MD Date of Service: 11/19/21 XR/XR chest 1V portable: Nausea/Vomiting/Diarr hea Copies to: Joe Bartlett MD SINGLE VIEW CHEST CLINICAL HISTORY: Nausea, vomiting, weakness, fevers and frequent urination since Friday. COMPARISON: Chest 04/16/2021 FINDINGS: Cardiomegaly with vascular congestion, similar to the prior study. No focal consolidation, pneumothorax, large pleural effusion or free air. XR/XR chest 1V portable IMPRESSION: CHF FINDINGS, SIMILAR TO THE PRIOR STUDY. NO ACUTE PROCESS IS SEEN. Impression dictated by: Ian Butler Jr., DTrueOTrue11/19/2021 3:46 PM Dictation Location: [place] [address] Transcribed By: [facility] 11/19/21 1546 Dictated By: Ian Butler Jr, DO 11/19/21 1546 Signed By: 11/19/[address] [facility] Basic Metabolic Panelon 10-10 Anion gap [Moles/Vol] 20 mmol/L Normal 12-20 [facility] [employer] Comment on above: Result Comment: Effe ctive 08/16/2019 reference range changed. Performed By: #### B MP #### [facility] [address] [place], [place] [id number] Calcium [Mass/Vol] 9.3 mg/dL Normal 8.6-10.2 [facility] [employer] Comment on above: Performed By: #### B MP #### [facility] [address] [facility] [place] [id number] Chloride [Moles/Vol] 106 mmol/L Normal 98-107 [facility] Comment on above: Performed By: #### B MP #### [facility] [address] [place], [place] [id number] CO2 [Moles/Vol] 20 mmol/L Normal 20-31 [facility] Comment on above: Performed By: #### B MP #### [facility] [address] [facility] [place] [id number] Creatinine [Mass/Vol] 1.0 mg/dL Normal 0.7-1.4 [facility] Comment on above: Performed By: #### B MP #### [facility] [address] [facility] [id number] eGFRAA 97 mL/min/1.73m2 Normal >60 [facility] Comment on above: Performed By: #### B MP #### [facility] [address] [place], [place] [id number] eGFRNAA 80 mL/min/1.73m2 Normal >60 [facility] Comment on above: Performed By: #### B MP #### [facility] [address] [place], [place] [id number] Glucose [Mass/Vol] 163 mg/dL High 65-99 [facility] Comment on above: Result Comment: For FASTING Glucose --- ADA reference ranges: Normal 65-99 mg/dl Prediabetes 100-125 Diabetes >/= 126 Performed By: #### B MP #### [facility] [address] [place], [place] [id number] Potassium [Moles/Vol] 4.7 mmol/L Normal 3.5-5.5 [facility] Comment on above: Performed By: #### B MP #### [facility] [address] [place], [place] [id number] Sodium [Moles/Vol] 141 mmol/L Normal 135-146 [facility] Comment on above: Performed By: #### B MP #### [facility] [address] [facility] [place] [id number] Urea nitrogen [Mass/Vol] 23 mg/dL Normal 7-25 [facility] Specialist Comment on above: Performed By: #### B MP #### [facility] [address] [place], [place] [phone] Office Visit (Cardiology)on 10-30-2021 Follow-up visit Diagnoses/Problems Assessed History of PTCA (V45.82) (Z98.61) Hyperlipidemia (272.4) (E78.5) Benign essential hypertension (401.1) (I10) ASHD (arteriosclerotic heart disease) (414.00) (I25.10) Diabetes mellitus (250.00) (E11.9) Preoperative cardiovascular examination (V72.81) (Z01.810) Morbid obesity with BMI of 45.0-49.9, adult (278.01,V85.42) (E66.01,Z68.42) Never a smoker Orders ASHD (arteriosclerotic heart disease), Benign essential hypertension Renew: Lisinopril 20 MG Oral Tablet; Take 1 tablet daily ASHD (arteriosclerotic heart disease), Benign essential hypertension, History of PTCA Renew: Aspirin EC 81 MG Oral Tablet Delayed Release; TAKE 1 TABLET DAILY ASHD (arteriosclerotic heart disease), Benign essential hypertension, Preoperative cardiovascular examination IO EKG Electrocardiogram- 12 Lead; Status:Complete; Done: 30Oct2021 ASHD (arteriosclerotic heart disease), History of PTCA, Hyperlipidemia Renew: Atorvastatin Calcium 40 MG Oral Tablet; TAKE 1 TABLET AT BEDTIME SocHx: Never a smoker Tobacco Use Screening; Status:Complete; Done: 30Oct2021 Patient Instructions By signing my name below, IPolly LPN ,Liban, attest that this documentation has been prepared under the direction and in the presence of Dr. Everette Posadas MD. Please bring all medicines, vitamins, and herbal supplements with you when you come to the office. Prescriptions will not be filled unless you are compliant with your follow up appointments or have a follow up appointment scheduled as per instruction of your physician. Refills should be requested at the time of your visit. Follow up in [address] Everette Luevano DO Patient is cleared for orthopedic surgery with Dr. Roper from a cardiac standpoint. Chief Complaint EVERETTE GEORGE is being seen for [facility] AM[facility]. History of Present Illness Seen for preoperative risk assessment. He normally sees Dr. Luevano but was mistakenly put on my schedule. He is an individual with a history of coronary disease and intervention 4 years ago. Prior to the diagnosis he had symptoms that prompted noninvasive evaluation with stress testing that was mildly abnormal. Thereafter he presented to the hospital with classic symptomatology and underwent coronary angiogram and was found to have two-vessel disease which was intervened upon. He states that since then he has had no symptoms although he did have a false alarm about a week after intervention. Risk factor management appears to be adequate and appropriate diabetes hypertension and hyperlipidemia are well controlled. He is obviously overweight and the merits of diet lifestyle modification exercise and weight loss were advocated. I did suggest to him, though, that appears he has no signs or symptoms of progressive coronary disease and I suggest that he proceed with the surgical procedure as intended. He was encouraged to follow-up with Dr. Luevano as before. Current Meds Medication NameInstruction Allopurinol 100 MG Oral TabletTAKE 1 TABLET DAILY. Aspirin EC 81 MG Oral Tablet Delayed ReleaseTAKE 1 TABLET DAILY. Carvedilol 12.5 MG Oral TabletTake 1 tablet twice a day Celecoxib 200 MG Oral CapsuleTAKE 1 CAPSULE DAILY WITH A MEAL. Isosorbide Mononitrate ER 30 MG Oral Tablet Extended Release 24 HourTake 1 tablet daily Levemir FlexTouch 100 UNIT/ML Subcutaneous Solution Pen-injectorINJECT SUBCUTANEOUSLY DIRECTED. Lipitor 40 MG Oral TabletTAKE 1 TABLET AT BEDTIME. Lisinopril 20 MG Oral TabletTake 1 tablet daily metFORMIN HCl - 1000 MG Oral TabletTAKE 1 TABLET EVERY 12 HOURS. NovoLOG PenFill 100 UNIT/ML SOLNINJECT SUBCUTANEOUSLY DIRECTED. Trulicity 4.5 MG/0.5ML Subcutaneous Solution Pen-injectorInject once weekly Allergies Medication No Known Drug Allergies Recorded By: Ashanti Judd; 10/30/2021 8:41:50 AM Social History Problems Never a smoker No alcohol use No illicit drug use Occasional caffeine consumption Review of Systems Constitutional: not feeling tired. Eyes: no eyesight problems. ENT: no hearing loss and no nosebleeds. Cardiovascular: no intermittent leg claudication and as noted in HPI. Respiratory: no chronic cough and no shortness of breath. Gastrointestinal: no change in bowel habits and no blood in stools. Genitourinary: no urinary frequency and no hematuria. Skin: no skin rashes. Neurological: no seizures and no frequent falls. Psychiatric: no depression and not suicidal. All other systems have been reviewed and are negative for complaint. Vitals Vital Signs Recorded: 30Oct2021 12:27PMRecorded: 30Oct2021 10:08AM Heart [id number], Apical Dqisaanr355, RUE, Fuwskqz009, LUE, Sitting Eidhrxjjb90, RUE, Obdxsqg51, LUE, Sitting Height6 ft 1 in Ylmhqm893 lb 12.8 oz BMI Serwhbhatv04.94 kg/m2 BSA Calculated2.75 Tobacco Useb) No EKG done in office today. Physical Exam Constitutional: alert and in no acute distress. Eyes: no erythema, swelling (more content not included)... Normal SDI Tobacco Screening.on 022 Tobacco use status [facility] b) No -[facility] [employer] 600 DO Work Phone: MRI Ankle w/o + w/ Lefton MRI Ankle w/o + w/ Left HISTORY: Left anterior ankle pain. Lump around 6 months. No specific trauma. Reported aspiration, no fluid came out. TECHNIQUE: Routine MRI of the ankle/hindfoot and portions of the midfootwith and without contrast. Given 20 mL of intravenous ProHance. Comparison: None RESULT: Cartilage: Mild tibiotalar degenerative changes with small amount of subchondral cystic change. Mild degenerative changes subtalar joint. Ligaments: Talofibular ligaments, tibiofibular ligaments, calcaneofibular ligament and deltoid ligament all appear to be intact. Tendons: Marker placed anteriorly/dorsally at the level of the distal tibia. At this site, there is complete rupture/tear of the tibialis anterior tendon, which is retracted to the marker with only fluid in the visualized more distal tendon sheath, and surrounding edema. Other extensor tendons appear intact. Medial flexor tendons this appear intact. Longitudinal split-type tearing involving peroneus brevis within the retromalleolar groove. Peroneus longus appears intact. Moderate to severe Achilles tendinosis with the tendon measuring 1.3 cm in AP dimension, without tear. Joint Fluid: Physiologic quantity of joint fluid. Bone Marrow: No evidence for fracture, osteochondral lesion, osteomyelitis. Plantar Aponeurosis: Minimal thickening with enthesophyte at origin, otherwise unremarkable. Sinus Tarsi: Sinus tarsi is within normal limits. Muscle: Muscle bulk and signal intensity is within normal limits. Tarsal Tunnel: Tarsal tunnel is within normal limits. Other: No suspicious enhancement. IMPRESSION: Complete rupture/tear of the tibialis anterior tendon, which is retracted to the level of the marker. Longitudinal split tear involving peroneus brevis in the retromalleolar groove. Moderate to severe Achilles tendinosis without tear. Mild tibiotalar and subtalar joint osteoarthritis. Report reported and signed by Leodan Calderon on 10/10/2021 1614 Normal [facility] Specialist Vital Signs Date Time Vital Sign Value Performing Clinician Facility 05-02-2023 11:10-0400 Diastolic blood pressure 72 mm[Hg] Joe Limon [facility] [place] 05-02-2023 11:10-0400 Heart rate 72 /min Joe Limon [facility] 05-02-2023 11:10-0400 Respiratory rate 16 /min Joe Limon [facility] 05-02-2023 11:10-0400 SaO2% (BldA) [Mass fraction] 99 % Joe Limon [facility] 05-02-2023 11:10-0400 Systolic blood pressure 123 mm[Hg] Joe Limon [facility] 03-25-2023 11:25-0400 Diastolic blood pressure 74 mm[Hg] Leodan GAY [facility] 03-25-2023 11:25-0400 Heart rate 72 /min Leodan GAY [facility] 03-25-2023 11:25-0400 SaO2% (BldA) [Mass fraction] 97 % Leodan GAY [facility] 03-25-2023 11:25-0400 Systolic blood pressure 134 mm[Hg] Leodan GAY [facility] 07-31-2022 10:56-0500 Blood Pressure Location Deirdre BOYKIN [facility] 07-31-2022 10:56-0500 Diastolic blood pressure 84 mm[Hg] Deirdre BOYKIN [facility] 07-31-2022 10:56-0500 Heart rate 76 /min Deirdre BOYKIN [facility] 07-31-2022 10:56-0500 SaO2% (BldA) [Mass fraction] 98 % Deirdre BOYKIN [facility] 07-31-2022 10:56-0500 Systolic blood pressure 136 mm[Hg] Deirdre BOYKIN [facility] 07-09-2022 10:45-0500 Blood Pressure Location Estuardo MIX [facility] 07-09-2022 10:45-0500 Diastolic blood pressure 71 mm[Hg] Estuardo MIX [facility] 07-09-2022 10:45-0500 Systolic blood pressure 127 mm[Hg] Estuardo MIX [facility] 03-19-2022 10:25-0400 Blood Pressure Location Leodan Gay [facility] 03-19-2022 10:25-0400 Diastolic blood pressure 67 mm[Hg] Leodan Gay [facility] 03-19-2022 10:25-0400 Heart rate 76 /min Leodan Gay [facility] 03-19-2022 10:25-0400 Respiratory rate 18 /min Leodan Gay [facility] 03-19-2022 10:25-0400 SaO2% (BldA) [Mass fraction] 100 % Leodan Gay [facility] 03-19-2022 10:25-0400 Systolic blood pressure 112 mm[Hg] Leodan Gay [facility] 01-30-2022 15:11-0400 Blood Pressure Location Leodan Gay [facility] 01-30-2022 15:11-0400 Diastolic blood pressure 71 mm[Hg] Leodan Gay [facility] 01-30-2022 15:11-0400 Heart rate 78 /min Leodan Gay [facility] 01-30-2022 15:11-0400 Respiratory rate 18 /min Leodan Gay [facility] 01-30-2022 15:11-0400 SaO2% (BldA) [Mass fraction] 100 % Leodan Gay [facility] 01-30-2022 15:11-0400 Systolic blood pressure 119 mm[Hg] Leodan Gay [facility] 01-11-2022 06:40-0400 Diastolic blood pressure 100 mm[Hg] Leodan Gay [facility] 01-11-2022 06:40-0400 Heart rate 73 /min Leodan Gay [facility] 01-11-2022 06:40-0400 Respiratory rate 20 /min Leodan Gay [facility] 01-11-2022 06:40-0400 SaO2% (BldA) [Mass fraction] 100 % Leodan Gay [facility] 01-11-2022 06:40-0400 Systolic blood pressure 167 mm[Hg] Leodan Gay [facility] 01-10-2022 14:50-0400 Blood Pressure Location Leodan Gay [facility] 01-10-2022 14:50-0400 Diastolic blood pressure 75 mm[Hg] Leodan Gay [facility] 01-10-2022 14:50-0400 Heart rate 69 /min Leodan Gay [facility] 01-10-2022 14:50-0400 Respiratory rate 18 /min Leodan Gay [facility] 01-10-2022 14:50-0400 SaO2% (BldA) [Mass fraction] 100 % Leodan Gay [facility] 01-10-2022 14:50-0400 Systolic blood pressure 127 mm[Hg] Leodan Gay [facility] 12-27-2021 16:40-0400 Body height 185.42 cm Jermaine Schaferaurelio Other [employer] Other 12-27-2021 16:40-0400 Body mass index (BMI) [Ratio] 43.27 kg/m2 Jermanie Schaferaurelio Other [employer] Other 12-27-2021 16:40-0400 Body temperature 96.5 [degF] Jermaine Burke Other [employer] Other 12-27-2021 16:40-0400 Body weight 148.78 kg Jermaine Burke Other [employer] Other 12-27-2021 16:40-0400 Diastolic blood pressure 69 mm[Hg] Jermaine Burke Other [employer] Other 12-27-2021 16:40-0400 Respiratory rate 20 /min Jermaine Burke Other [employer] Other 12-27-2021 16:40-0400 SaO2% (BldA) [Mass fraction] 98 % Jermaine Turk Other [place] [employer] Other 12-27-2021 16:40-0400 Systolic blood pressure 103 mm[Hg] Jermaine Turk Other [place] [employer] Other 12-26-2021 00:00-0400 60 1 Sanju Beard Work Phone: [facility] 250 DO Work Phone: Comment on above: [id number] 12-03-2021 09:58-0400 Blood Pressure Location Estuardo FiPath [facility] 12-03-2021 09:58-0400 Diastolic blood pressure 75 mm[Hg] Estuardo FiPath [facility] 12-03-2021 09:58-0400 Heart rate 74 /min Estuardo MIX [facility] 12-03-2021 09:58-0400 Respiratory rate 16 /min [facility]ardo [facility] 12-03-2021 09:58-0400 Systolic blood pressure 138 mm[Hg] Est[facility]ardo MIX [facility] 11-20-2021 12:40-0400 60 1 Sanju Beard Work Phone: [facility] 250 DO Work Phone: Comment on above: [id number] 10-30-2021 12:27-0400 Diastolic blood pressure 80 mm[Hg] Sanju Beard Work Phone: [facility] [employer] 600 DO Work Phone: 10-30-2021 12:27-0400 Heart rate 64 /min Sanju Beard Work Phone: [facility] 600 DO Work Phone: 10-30-2021 12:27-0400 Systolic blood pressure 138 mm[Hg] Sanju Beard Work Phone: [facility] [employer] 600 DO Work Phone: 10-30-2021 10:08-0400 Body height 185.42 cm Sanju Beard Work Phone: [facility] 600 DO Work Phone: 10-30-2021 10:08-0400 Body mass index (BMI) [Ratio] 46.94 kg/m2 Sanju Beard Work Phone: [facility] [employer] 600 DO Work Phone: 10-30-2021 10:08-0400 Body surface area Derived from formula 2.75 m2 Sanju Beard Work Phone: [facility] 600 DO Work Phone: 10-30-2021 10:08-0400 Body weight 161.39 kg Sanju Beard Work Phone: [facility] 600 DO Work Phone: 10-30-2021 10:08-0400 Diastolic blood pressure 80 mm[Hg] Sanju Beard Work Phone: [facility] [employer] 600 DO Work Phone: 10-30-2021 10:08-0400 Heart rate 69 /min Sanju Beard Work Phone: [facility] 600 DO Work Phone: 10-30-2021 [id number] Systolic blood pressure 160 mm[Hg] Sanju Beard Work Phone: [facility] 600 DO Work Phone: Encounters Encounter Date Encounter Type Care Provider Facility Start: 08-27-2023 End: 08-27-2023 ambulatory BRANDT ANTONIO Not Available Start: 08-27-2023 End: 08-27-2023 ambulatory IVA TINSLEY Not Available Start: 08-01-2023 End: 08-01-2023 ambulatory SANJU BEARD Not Available Start: 07-11-2023 End: 07-11-2023 ambulatory IVA TINSLEY Not Available Start: 07-10-2023 End: 07-10-2023 ambulatory BRANDT ANTONIO Not Available Start: 07-09-2023 End: 07-10-2023 ambulatory BRANDT ANTONIO Not Available Start: 06-23-2023 End: 06-23-2023 ambulatory YEYO TRUONG Not Available Start: 06-12-2023 End: 06-12-2023 ambulatory Joe Limon Facility:[facility] Start: 05-17-2023 End: 05-17-2023 Emergency department patient visit Sanju Beard Facility:[facility] Start: 05-02-2023 End: 05-03-2023 ambulatory Leodan GAY Facility:[facility] Start: 05-02-2023 End: 05-03-2023 ambulatory SANJU BEARD Facility:[facility] Start: 05-02-2023 End: 05-02-2023 Patient encounter procedure Leodan GAY [facility] Start: 05-02-2023 End: 05-02-2023 Patient encounter procedure Joe Limon [facility] [place] Start: 04-17-2023 ambulatory Leodan GAY Facility: [facility] Start: 03-25-2023 End: 03-26-2023 ambulatory Leodan GAY Facility:[facility] Start: 03-25-2023 End: 03-25-2023 Patient encounter procedure Leodan GAY [facility] Start: 03-07-2023 End: 06-09-2023 ambulatory Leodan GAY Facility:[facility] Start: 03-07-2023 End: 06-08-2023 Recurring Leodan Gay [facility] Start: 02-13-2023 End: 02-14-2023 ambulatory Leodan GAY Facility:[facility] Start: 10-11-2022 Rx Renewal Sanju butt Work Phone: [facility] 250 DO Work Phone: Start: 09-23-2022 Chart Update Sanju butt Work Phone: [facility] 250 DO Work Phone: Start: 07-31-2022 End: 07-31-2022 Patient encounter procedure Deirdre BOYKIN [facility] Start: 07-09-2022 End: 07-09-2022 Patient encounter procedure Estuardo MIX [facility] [place] Start: 04-30-2022 End: 05-01-[address] ESTUARDO MIX Facility:[facility] Start: 04-26-2022 End: 04-27-[address] SANJU BEARD Facility:[facility] Start: 04-18-2022 End: 09-08-2022 Recurring Leodan Gay [facility] Start: 04-17-[address] Everette Posadas II Facility: Start: 04-03-2022 End: 04-04-2022 ambulatory Sanju Beard Facility:[facility] Start: 04-03-2022 End: 04-03-2022 Discharged Recurring DO Sanju Beard Work Phone: [facility] [address] Start: 04-03-2022 Registered Recurring DO Emperatriz Beard Work Phone: [facility] [address] Start: 03-19-2022 End: 03-19-2022 Patient encounter procedure Leodan Gay [facility] Start: 02-26-2022 End: 02-27-[address] ESTUARDO MIX Facility:[facility] Start: 02-26-2022 End: 02-26-2022 Patient encounter procedure Estuardo MIX [facility] Start: 02-14-2022 End: 02-14-[address] ESTUARDO MIX Facility:[facility] Start: 02-07-2022 Encounter for preprocedural laboratory examination DR ESTUARDO MIX [facility] Start: 02-04-2022 End: 02-05-[address] ESTUARDO MIX Facility:[facility] Start: 02-04-2022 End: 02-05-2022 Encounter for preprocedural laboratory examination DR ESTUARDO MIX Facility:[facility] Start: 01-30-2022 End: 01-30-2022 Patient encounter procedure Leodan Gay [facility] Start: 01-29-2022 End: 01-29-2022 Patient encounter procedure Leodan Gay [facility] Start: 01-11-2022 End: 01-11-2022 Admission to same day surgery center Leodan Gay [facility] Start: 01-11-[address] Sanju Phelps Facility:[id number] Start: 01-10-2022 End: 01-10-2022 Patient encounter procedure Leodan Doherty Victor Hugo [facility] Start: 01-04-2022 End: 01-04-2022 ambulatory Lani Luevano Facility:[facility] Start: 01-04-2022 [facility], Provider: Everette Luevano, Status: Pen, Time: 10:00 AM Sanju Beard Work Phone: [facility] 250 DO Work Phone: Start: 01-02-2022 Chart Update Sanju butt Work Phone: [facility] 250 DO Work Phone: Start: 01-01-2022 End: 01-01-2022 ambulatory Lani Luevano Facility:[facility] Start: 12-27-2021 Chart Update Sanju butt Work Phone: [facility] 250 DO Work Phone: Start: 12-27-2021 End: 12-27-2021 ambulatory Jermaine Turk Other [facility] [employer] Other Start: 12-27-2021 Office outpatient vi sit 10 minutes Jermaine Turk [facility] Start: 12-26-[address] Sanju Phelps Facility:[id number] Start: 12-26-2021 End: 12-26-2021 ambulatory Lani Luevano Facility:[facility] Start: 12-25-2021 End: 12-26-2021 ambulatory Sanju Beard Facility:[facility] Start: 12-12-2021 AUDIT Sanju butt Work Phone: [facility] 250 DO Work Phone: Start: 12-03-2021 End: 12-04-[address] ESTUARDO MIX Facility:[facility] Start: 12-03-2021 End: 12-03-2021 Patient encounter procedure Estuardo MIX [facility] Don Start: 11-19-2021 End: 11-23-2021 Evaluation and management of inpatient Henny Katz Facility:[facility] Start: 10-30-2021 Office outpatient vi sit 25 minutes Sanju Beard [facility] 600 DO Work Phone: Start: 09-28-2021 Rx Renewal Everette Dubondo you DO Work Phone: [facility] 250 DO Work Phone: Start: 09-17-2021 Rx Renewal Everette you DO [facility] Work Phone: Patient encounter status [facility] Work Phone: Procedures Date Procedure Procedure Detail Performing Clinician Start: 02-26-2022 Cystoscopic removal of ureteric stent Estuardo MIX Start: 02-14-2022 Cystoscopic removal of ureteric stent Estuardo MIX Start: 02-14-2022 Stone retrieval bask et, device (physical object) Estuardo MIX Start: 01-11-2022 Catheterization of l eft heart Leodan Gay Start: 11-20-2021 Cystoscopy Estuardo ALARCON Cardiac catheterization Aba Beard Work Phone: Cystourethroscopy wi th dilation of urethral stricture Estuardo MIX History of percutane ous transluminal coronary angioplasty History of PTCA Sanju Beard Work Phone: History of placement of stent for coronary artery disease Hx of heart artery stent DO Sanju Beard Work Phone: Insertion of hip prosthesis Jeo Limon Placement of stent i n cardiac conduit Estuardo MIX Prosthetic arthropla sty of the hip Sanju Beard Work Phone: Total colonoscopy Sanju Beard Work Phone: Comment on above: 11Aug2014; Total replacement of hip Talha logan Beard Work Phone: Total replacement of hip Ruslan Limon Plan of Treatment Date Care Activity Detail Author Start: 09-17-2023 ambulatory Ambulatory Facility:[facility] [place] Start: 04-17-2022 [facility], Provider: Everette Luevano, Status: Pen, Time: 10:40 AM [facility], Provider: Everette Luevano, Status: Pen, Time: 10:40 AM [facility] Work Phone: Start: 04-16-2022 FUV, Provider: Everette Posadas, Status: Pen, Time: 10:15 AM [facility], Provider: Everette Posadas, Status: Pen, Time: 10:15 AM [facility] Work Phone: Start: 02-27-2022 FUV, Provider: Everette Luevano, Status: Pen, Time: 2:30 PM [facility], Provider: Everette Luevano, Status: Pen, Time: 2:30 PM [facility] Work Phone: Start: 02-27-2022 FUV, Provider: Everette Luevano, Status: Pen, Time: 11:10 AM [facility], Provider: Everette Luevano, Status: Pen, Time: 11:10 AM [facility] 250 DO Work Phone: Immunizations Immunization Date Immunization Notes Care Provider Dell mayorga 08-06-2021 influenza virus vacc ine, unspecified formulation Estuardo MIX [facility] 08-06-2021 Influenza, injectabl e, Madin Garland Canine Kidney, preservative free, quadrivalent Sanju Beard Work Phone: [facility] DO Work Phone: 07-30-2021 Moderna COVID-19 Vac cine 100 MCG/0.5ML Intramuscular Suspension Sanju Spicerman Work Phone: [facility] 10-16-2020 Aaron COVID-19 Vac cine 0.5 ML Intramuscular Suspension Sanju Spicerman Work Phone: [facility] 08-11-2020 SARS-CoV-2 (COVID-19 ) Ad26 vaccine, recombinant Estuardo MIX [facility] [place] 05-11-2020 influenza virus vacc ine, unspecified formulation Estuardo MIX [facility] 05-11-2020 influenza, high dose seasonal, preservative-free Sanju Beard Work Phone: [facility] Work Phone: 07-27-2018 influenza, injectabl e, madin susan canine kidney, preservative free Sanju Beard Work Phone: [facility] Work Phone: 07-11-2018 influenza virus vacc ine, unspecified formulation [facility] Be[facility] Work Phone: [facility] Work Phone: 08-08-2017 influenza virus vacc ine, unspecified formulation Estuardo MIX [facility] 08-08-2017 influenza, injectabl e, quadrivalent, preservative free Sanju Beard Work Phone: [facility] 600 DO Work Phone: 08-11-2015 pneumococcal polysaccharide vaccine, 23 valent Sanju Beard Work Phone: [facility] 600 DO Work Phone: 06-29-2009 novel influenza-H1N1 -09, preservative-free, injectable Sanju Beard Work Phone: [facility] 600 DO Work Phone: Payers Date Payer Category Payer Unknown [id number] 2023 Unknown 2021 Self-pay [id number] 1960 Unknown [id number] 2.16.84 0.1.443490.3.579.2.593 1961 Unknown [id number] 2.16.84 0.1.814953.3.579.2.593 1961 Unknown [id number] 2.16.84 0.1.723639.3.579.2.593 1961 Unknown [id number] 2.16.84 0.1.283477.3.579.2.593 1961 Unknown [id number] 2.16.84 0.1.165381.3.579.2.593 1961 Unknown [id number] 2.16.84 0.1.046207.3.579.2.593 1961 Unknown [id number] 2.16. 840.1.596490.3.579.2.356 1961 Unknown [id number] 2.16. 840.1.698288.3.579.2.356 1961 Unknown [id number] 2.16. 840.1.710617.3.579.2.356 1961 Unknown [id number] 2.16.8 40.1.353705.3.579.2.718 1961 Unknown [id number] 2.16.8 40.1.592685.3.579.2.727 1961 Unknown [id number] 2.16.8 40.1.475680.3.579.2.727 1961 Unknown [id number] 2.16.8 40.1.822087.3.579.2.727 1961 Unknown [id number] 2.16.8 40.1.415217.3.579.2.727 1961 Unknown [id number] 2.16.8 40.1.877330.3.579.2.727 1961 Unknown [id number] 2.16.8 40.1.988108.3.579.2.727 1961 Unknown [id number] 2.16.8 40.1.567099.3.579.2.727 1961 Unknown [id number] 2.16.84 0.1.366895.3.579.2.1259 1961 Unknown [id number] 2.16.84 0.1.489611.3.579.2.1259 1961 Unknown [id number] 2.16.840 .1.436951.3.579.2.1259 1961 Unknown [id number] 2.16.840 .1.394811.3.579.2.1259 1961 Unknown [id number] 2.16.840 .1.734329.3.579.2.1259 1961 Unknown [id number] 2.16.840 .1.955462.3.579.2.1259 1961 Unknown [id number] 2.16.840. 1.016788.3.579.2.1259 1959 Unknown [id number] [employer] BC/BS MAGDALENO [id number] Unknown [id number] 2.16.8 40.1.462473.3.579.2.531 Unknown [id number] 2.16.8 40.1.878350.3.579.2.531 Unknown [id number] 2.16.8 40.1.294572.3.579.2.531 Unknown [id number] 2.16.8 40.1.881765.3.579.2.531 Unknown [id number] 2.16.8 40.1.888858.3.579.2.531 Unknown [id number] 2.16.8 40.1.679498.3.579.2.531 Social History Date Type Detail Facility No illicit drug use No illicit drug use [place] [address] DO Work Phone: Start: 12-03-2021 End: 05-02-2023 Tobacco smoking status Never smoked tobacco (finding) [facility] Sex Assigned At Male [facility] Start: 1960 Sex Assigned At Male F [facility] Tobacco smoking status Never [facility] Medical Equipment Procedure Code Equipment Code Equipment Origin al Text Equipment Identifier Dates Cystoscopy, with ureteral calculus manipulation and stent placement Polymeric ureteral stent [id number] FDA Start: 11-20-2021 FDA Start: 01-11-2022 [facility] Unknown Non Biological Left Anterior Descending Coronary Artery FDA Start: 01-11-2022 [facility] Unknown Non Biological Left Anterior Descending Coronary Artery FDA Start: 01-11-2022 [facility] Unknown Non Biological Left Anterior Descending Coronary Artery FDA Start: 01-11-2022 [facility] Unknown Non Biological Left Anterior Descending Coronary Artery FDA Start: 01-11-2022 CL STENT RUI 2.5 X 23 FDA Start: 10-12-2018 CL STENT RUI 2.75 X 23 FDA Start: 10-12-2018 CL STENT RUI 2.5 X 23 FDA Start: 10-12-2018 CL STENT RUI 2.75 X 23 FDA Start: 10-12-2018 [facility] Unknown Non Biological Left Anterior Descending Coronary Artery FDA Start: 01-11-2022 [facility] Unknown Non Biological Left Anterior Descending Coronary Artery FDA Start: 01-11-2022 [facility] Unknown Non Biological Left Anterior Descending Coronary Artery FDA Start: 01-11-2022 LHC Unknown Non Biological Left Anterior Descending Coronary Artery FDA Start: 01-11-2022 [facility] Unknown Non Biological Left Anterior Descending Coronary Artery FDA Start: 01-11-2022 [facility] Unknown Non Biological Left Anterior Descending Coronary Artery FDA Start: 01-11-2022 [facility] Unknown Non Biological Left Anterior Descending Coronary Artery FDA Start: 01-11-2022 Functional Status Date Assessment Result Facility 03-25-2023 Functional Status No [facility] 07-31-2022 Functional Status No [facility] 07-09-2022 Functional Status N/A [facility] [place] 03-19-2022 Functional Status N/A [facility] 02-25-2022 Functional Status N/A [facility] 01-30-2022 Functional Status N/A [facility] Clinical Notes 12-03-2021 to 06-13-2023 Note Date & Type Note Facility 06-13-2023 Note [id number] 05-19-2023 Note [id number] [id number] Note Education Materials Cardiovascular Hypertension, Adult Hypertension is another name for high blood pressure. High blood pressure forces your heart to work harder to pump blood. This can cause problems over time. There are two numbers in a blood pressure reading. There is a top number (systolic) over a bottom number (diastolic). It is best to have a blood pressure that is below 120/80. What are the causes? The cause of this condition is not known. Some other conditions can lead to high blood pressure. What increases the risk? Some lifestyle factors can make you more likely to develop high blood pressure: ? Smoking. ? Not getting enough exercise or physical activity. ? Being overweight. ? Having too much fat, sugar, calories, or salt (sodium) in your diet. ? Drinking too much alcohol. Other risk factors include: ? Having any of these conditions: ? Heart disease. ? Diabetes. ? High cholesterol. ? Kidney disease. ? Obstructive sleep apnea. ? Having a family history of high blood pressure and high cholesterol. ? Age. The risk increases with age. ? Stress. What are the signs or symptoms? High blood pressure may not cause symptoms. Very high blood pressure (hypertensive crisis) may cause: ? Headache. ? Fast or uneven heartbeats (palpitations). ? Shortness of breath. ? Nosebleed. ? Vomiting or feeling like you may vomit (nauseous). ? Changes in how you see. ? Very bad chest pain. ? Feeling dizzy. ? Seizures. How is this treated? ? This condition is treated by making healthy lifestyle changes, such as: ? Eating healthy foods. ? Exercising more. ? Drinking less alcohol. ? Your doctor may prescribe medicine if lifestyle changes do not help enough and if: ? Your top number is above 130. ? Your bottom number is above 80. ? Your personal target blood pressure may vary. Follow these instructions at home: Eating and drinking ? If told, follow the DASH eating plan. To follow this plan: ? Fill one half of your plate at each meal with fruits and vegetables. ? Fill one fourth of your plate at each meal with whole grains. Whole grains include whole-wheat pasta, brown rice, and whole-grain bread. ? Eat or drink low-fat dairy products, such as skim milk or low-fat yogurt. ? Fill one fourth of your plate at each meal with low-fat (lean) proteins. Low-fat proteins include fish, chicken without skin, eggs, beans, and tofu. ? Avoid fatty meat, cured and processed meat, or chicken with skin. ? Avoid pre-made or processed food. ? Limit the amount of salt in your diet to less than 1,500 mg each day. ? Do not drink alcohol if: ? Your doctor tells you not to drink. ? You are , may be , or are planning to become . ? If you drink alcohol: ? Limit how much you have to: ? 0?1 drink a day for women. ? 0?2 drinks a day for men. ? Know how much alcohol is in your drink. In the [place] one drink equals one 12 oz bottle of beer (355 mL), one 5 oz glass of wine (148 mL), or one 1? oz glass of hard liquor (44 mL). Lifestyle ? Work with your doctor to stay at a healthy weight or to lose weight. Ask your doctor what the best weight is for you. ? Get at least 30 minutes of exercise that causes your heart to beat faster (aerobic exercise) most days of the week. This may include walking, swimming, or biking. ? Get at least 30 minutes of exercise that strengthens your muscles (resistance exercise) at least 3 days a week. This may include lifting weights or doing Pilates. ? Do not smoke or use any products that contain nicotine or tobacco. If you need help quitting, ask your doctor. ? Check your blood pressure at home as told by your doctor. ? Keep all follow-up visits. Medicines ? Take [id number]-[id number] and prescription medicines only as told by your doctor. Follow directions carefully. ? Do not skip doses of blood pressure medicine. The medicine does not work as well if you skip doses. Skipping doses also puts you at risk for problems. ? Ask your doctor about side effects or reactions to medicines that you should watch for. Contact a doctor if: ? You think you are having a reaction to the medicine you are taking. ? You have headaches that keep coming back. ? You feel dizzy. ? You have swelling in your ankles. ? You have trouble with your vision. Get help right away if: ? You get a very bad headache. ? You start to feel mixed up (confused). ? You feel weak or numb. ? You feel faint. ? You have very bad pain in your: ? Chest. ? Belly (abdomen). ? You vomit more than once. ? You have trouble breathing. These symptoms may be an emergency. Get help right away. Call 911. ? Do not wait to see if the symptoms will go away. ? Do not drive yourself to the hospital. Summary ? Hypertension is another name for high blood pressure. ? High blood pressure forces your heart to work harder to (more content not included)... [facility] 05-02-2023 Hospital Discharge instructions Patient Education 05/02/2023 11:35:54 Obesity, Adult Obesity, Adult Obesity is the condition of having too much total body fat. Being overweight or obese means that your weight is greater than what is considered healthy for your body size. Obesity is determined by a measurement called BMI (body mass index). BMI is an estimate of body fat and is calculated from height and weight. For adults, a BMI of 30 or higher is considered obese. Obesity can lead to other health concerns and major illnesses, including: Stroke. Coronary artery disease (CAD). Type 2 diabetes. Some types of cancer, including cancers of the colon, breast, uterus, and gallbladder. High blood pressure (hypertension). High cholesterol. Gallbladder stones. Obesity can also contribute to: Osteoarthritis. Sleep apnea. Infertility problems. What are the causes? Common causes of this condition include: Eating daily meals that are high in calories, sugar, and fat. Drinking high amounts of sugar-sweetened beverages, such as soft drinks. Being born with genes that may make you more likely to become obese. Having a medical condition that causes obesity, including: ?Hypothyroidism. ?Polycystic ovarian syndrome (PCOS). ?Binge-eating disorder. ?Petra syndrome. Taking certain medicines, such as steroids, antidepressants, and seizure medicines. Not being physically active (sedentary lifestyle). Not getting enough sleep. What increases the risk? The following factors may make you more likely to develop this condition: Having a family history of obesity. Living in an area with limited access to: ?[place], recreation centers, or sidewalks. ?Healthy food choices, such as grocery stores and [employer]. What are the signs or symptoms? The main sign of this condition is having too much body fat. How is this diagnosed? This condition is diagnosed based on: Your BMI. If you are an adult with a BMI of 30 or higher, you are considered obese. Your waist circumference. This measures the distance around your waistline. Your skinfold thickness. Your health care provider may gently pinch a fold of your skin and measure it. You may have other tests to check for underlying conditions. How is this treated? Treatment for this condition often includes changing your lifestyle. Treatment may include some or all of the following: Dietary changes. This may include developing a healthy meal plan. Regular physical activity. This may include activity that causes your heart to beat faster (aerobic exercise) and strength training. Work with your health care provider to design an exercise program that works for you. Medicine to help you lose weight if you are unable to lose one pound a week after six weeks of healthy eating and more physical activity. Treating conditions that cause the obesity (underlying conditions). Surgery. Surgical options may include gastric banding and gastric bypass. Surgery may be done if: ?Other treatments have not helped to improve your condition. ?You have a BMI of 40 or higher. ?You have life-threatening health problems related to obesity. Follow these instructions at home: Eating and drinking Follow recommendations from your health care provider about what you eat and drink. Your health care provider may advise you to: ?Limit fast food, sweets, and processed snack foods. ?Choose low-fat options, such as low-fat milk instead of whole milk. ?Eat five or more servings of fruits or vegetables every day. ?Choose healthy foods when you eat out. ?Keep low-fat snacks available. ?Limit sugary drinks, such as soda, fruit juice, sweetened iced tea, and flavored milk. Drink enough water to keep your urine pale yellow. Do not follow a fad diet. Fad diets can be unhealthy and even dangerous. Other healthful choices include: ?Eat at home more often. This gives you more control over what you eat. ?Learn to read food labels. This will help you understand how much food is considered one serving. ?Learn what a healthy serving size is. Physical activity Exercise regularly, as told by your health care provider. ?Most adults should get up to 150 minutes of moderate-intensity exercise every week. ?Ask your health care provider what types of exercise are safe for you and how often you should exercise. Warm up and stretch before being active. Cool down and stretch after being active. Rest between periods of activity. Lifestyle Work with your health care provider and a dietitian to set a weight-loss goal that is healthy and reasonable for you. Limit your screen time. Find ways to reward yourself that do not involve food. Do not drink alcohol if: ?Your health care provider tells you not to drink. ?You are , may be , or are planning to become . If you drink alcohol: ?Limit how much you have to: ?0 1 drink a day for women. ?0 2 drinks a day for men. ?Know how much alcohol is in your drink. In the [place] one drink equals one 12 oz bottle of beer (355 mL), one 5 oz glass of wine (148 mL), or one 1 oz glass of hard liquor (44 mL). General instructions Keep a weight-loss journal to keep track of the food you eat and how much exercise you get. Take jzuo-kyd-poeiklv and prescription medicines only as told by your health care provider. Take vitamins and supplements only as told by your health care provider. Consider joining a support group. Your health care provider may be able to recommend a support group. Pay attention to your mental health as obesity can lead to depression or self esteem issues. Keep all follow-up visits. This is important. Contact a health care provider if: You are unable to meet your weight-loss goal after six weeks of dietary and lifestyle changes. You have trouble breathing. Summary Obesity is the condition of having too much total body fat. Being overweight or obese means that your weight is greater than what is considered healthy for your body size. Work with your health care provider and a dietitian to set a weight-loss goal that is healthy and reasonable for you. Exercise regularly, as told by your health care provider. Ask your health care provider what types of exercise are safe for you and how often you should exercise. This information is not intended to replace advice given to you by your health care provider. Make sure you discuss any questions you have with your health care provider. Document Revised: 03/05/2022 Document Reviewed: 03/05/2022 Novavax Patient Education 2022 [employer]. [facility] [place] 07-09-2022 Hospital Discharge instructions Patient Education 07/09/2022 08:30:29 Dietary Guidelines to Help Prevent Kidney Stones Dietary Guidelines to Help Prevent Kidney Stones Kidney stones are deposits of minerals and salts that form inside your kidneys. Your risk of developing kidney stones may be greater depending on your diet, your lifestyle, the medicines you take, and whether you have certain medical conditions. Most people can reduce their chances of developing kidney stones by following the instructions below. Depending on your overall health and the type of kidney stones you tend to develop, your dietitian may give you more specific instructions. What are tips for following this plan? Reading food labels Choose foods with no salt added or low-salt labels. Limit your sodium intake to less than 1500 mg per day. Choose foods with calcium for each meal and snack. Try to eat about 300 mg of calcium at each meal. Foods that contain 200 500 mg of calcium per serving include: ?8 oz (237 ml) of milk, fortified nondairy milk, and fortified fruit juice. ?8 oz (237 ml) of kefir, yogurt, and soy yogurt. ?4 oz (118 ml) of tofu. ?1 oz of cheese. ?1 cup (300 g) of dried figs. ?1 cup (91 g) of cooked broccoli. ?1 3 oz can of sardines or mackerel. Most people need 1000 to 1500 mg of calcium each day. Talk to your dietitian about how much calcium is recommended for you. Shopping Buy plenty of fresh fruits and vegetables. Most people do not need to avoid fruits and vegetables, even if they contain nutrients that may contribute to kidney stones. When shopping for convenience foods, choose: ?Whole pieces of fruit. ?Premade salads with dressing on the side. ?Low-fat fruit and yogurt smoothies. Avoid buying frozen meals or prepared deli foods. Look for foods with live cultures, such as yogurt and kefir. Cooking Do not add salt to food when cooking. Place a salt shaker on the table and allow each person to add his or her own salt to taste. Use vegetable protein, such as beans, textured vegetable protein (TVP), or tofu instead of meat in pasta, casseroles, and soups. Meal planning Eat less salt, if told by your dietitian. To do this: ?Avoid eating processed or premade food. ?Avoid eating fast food. Eat less animal protein, including cheese, meat, poultry, or fish, if told by your dietitian. To do this: ?Limit the number of times you have meat, poultry, fish, or cheese each week. Eat a diet free of meat at least 2 days a week. ?Eat only one serving each day of meat, poultry, fish, or seafood. ?When you prepare animal protein, cut pieces into small portion sizes. For most meat and fish, one serving is about the size of one deck of cards. Eat at least 5 servings of fresh fruits and vegetables each day. To do this: ?Keep fruits and vegetables on hand for snacks. ?Eat 1 piece of fruit or a handful of berries with breakfast. ?Have a salad and fruit at lunch. ?Have two kinds of vegetables at dinner. Limit foods that are high in a substance called oxalate. These include: ?Spinach. ?Rhubarb. ?Beets. ?Potato chips and gibraltarian fries. ?Nuts. If you regularly take a diuretic medicine, make sure to eat at least 1 2 fruits or vegetables high in potassium each day. These include: ?Avocado. ?Banana. ?[place], prune, carrot, or tomato juice. ?Baked potato. ?Cabbage. ?Beans and split peas. General instructions Drink enough fluid to keep your urine clear or pale yellow. This is the most important thing you can do. Talk to your health care provider and dietitian about taking daily supplements. Depending on your health and the cause of your kidney stones, you may be advised: ?Not to take supplements with vitamin C. ?To take a calcium supplement. ?To take a daily probiotic supplement. ?To take other supplements such as magnesium, fish oil, or vitamin B6. Take all medicines and supplements as told by your health care provider. Limit alcohol intake to no more than 1 drink a day for non women and 2 drinks a day for men. One drink equals 12 oz of beer, 5 oz of wine, or 1 oz of hard liquor. Lose weight if told by your health care provider. Work with your dietitian to find strategies and an eating plan that works best for you. What foods are not recommended? Limit your intake of the following foods, or as told by your dietitian. Talk to your dietitian about specific foods you should avoid based on the type of kidney stones and your overall health. Grains Breads. Bagels. Rolls. Baked goods. Salted crackers. Cereal. Pasta. Vegetables Spinach. Rhubarb. Beets. Canned vegetables. Pickles. Olives. Meats and other protein foods Nuts. Nut butters. Large portions of meat, poultry, or fish. Salted or cured meats. Deli meats. Hot dogs. Sausages. Dairy Cheese. Beverages Regular soft drinks. Regular vegetable juice. Seasonings and other foods Seasoning blends with salt. Salad dressings. Canned soups. Soy sauce. Ketchup. Barbecue sauce. Canned pasta sauce. Casseroles. Pizza. Lasagna. Frozen meals. Potato chips. Hungarian fries. Summary You can reduce your risk of kidney stones by making changes to your diet. The most important thing you can do is drink enough fluid. You should drink enough fluid to keep your urine clear or pale yellow. Ask your health care provider or dietitian how much protein from animal sources you should eat each day, and also how much salt and calcium you should have each day. This information is not intended to replace advice given to you by your health care provider. Make sure you discuss any questions you have with your health care provider. Document Released: 11/22/2011 Document Revised: 11/17/2019 Document Reviewed: 07/08/2017 Novavax Patient Education 2020 [employer]. Follow Up Care 03/12/2022 12:46:15 With:DOMINGUEZ ACEVEDO, Estuardo Peralta, URL Address: [facility] [address] , [place] [address]- When: Unknown [facility] 02-26-2022 Hospital Discharge instructions Patient Education 02/26/2022 14:56:06 EU - Cystoscopy with Stent Removal Discharge Instructions (CUSTOM) Cystoscopy with Stent Removal Voiding after the procedure: there may be some pain, burning, urgency, frequency and blood tinged urine following the procedure. These symptoms usually resolve within 2-5 days. Drink the amount of fluid it takes to keep the urine pink to yellow or clear in color. Drinking enough water and fluids will help to ease any discomfort after your procedure. If you are having problems that seem out of the ordinary, please call. If unable to contact your physician and you feel it is an emergency, go to the nearest emergency room or call 911 Diet you may resume your normal diet. Activity you may resume your normal activities Call if you have a fever over 100 degrees. Follow Up Care 02/21/2022 13:17:40 With:Estuardo MIX Address: [facility] [address], [place] [place] [address]- Business (1) When:08/29/2022 14:55:34 Comments:sobia now and sobia at 6 month f/u. [facility] 01-11-2022 Hospital Discharge instructions Patient Education 01/11/2022 13:12:46 CV - Cardiovascular PCI Discharge Instructions (Custom) [place], [place] Cardiovascular PCI DISCHARGE INSTRUCTIONS Diet: Resume pre-procedure diet. Increase water intake the next 2 days to flush dye out of the body. Activity: If groin access: Limit activity today. Do not operate a vehicle, machinery or power tools. NO LIFTING OVER 10 POUNDS (a gallon of milk weighs 8 pounds) for 3 days. Limit climbing stairs, bending, squatting and stooping for 3 days. May resume driving in 24 hours. Let pain/discomfort guide your activity. If you are having pain, stop. No sexual activity for 1 week. Return to the Emergency Room if you have trouble breathing, walking or nausea and vomiting. Medications: Resume pre-procedure medication, unless otherwise directed. Hold the following medications for 48 hours post procedure: Actoplus MetGlucophageGlucophage XR GlucovanceAvandametFortamet Ozh-gxvxghpsiKkbmfqYhvo-feyavnnoa GlumetzaJanumetMetaglip RiometGlycomet Minimal pain, soreness and/or discomfort is expected. If you are prescribed an aspirin and/or antiplatelet (such as Plavix, Brilinta or Effient) do NOT stop taking these medications for any reason without talking to your farm helper Site Care: Do not remove dressing for 24 hours unless it becomes saturated, then replace. Keep site clean and dry; inspect site daily. Do not use any lotions, powders, or ointments at the groin or wrist site for 1 week. May shower 24 hours after the procedure. Clean site with soap and water. Pat dry and apply band aid. No tub baths, swimming or hot tubs for 3 days. Post Procedure: Soreness and tenderness to the site can last up to one week. Bruising may occur to site. A responsible adult should be with you for the first 24 hours after you arrive home. Keep follow-up appointment. Carry your stent card with you at all times. This provides information about your heart disease for any doctor who cares for you. No smoking for 24 hours as it increases the risk of developing blood clots. If you are interested in smoking cessation, contact [facility] at [phone], ext. [phone]. In the event you are unable to reach your physician, please call [facility] at [phone] and the router machine operator will assist you. Seek Medicare Care for: Bleeding: Apply continuous pressure to the site and Call 911. Should the arm or leg become cold, numb, blue or white call your physician immediately. Signs of infection are redness, warmth, swelling, getting more sore, colored drainage, fever or chills Chest pain Blood in your urine or stool Black tarry stools Follow Up Care 01/10/2022 15:46:36 With:Leodan Gay Address: [address] [place] [phone]- [phone] Business (1) When:01/30/2022 15:15:00 Comments:Keep scheduled appointment [facility] 01-11-2022 Evaluation + Plan note Extrac ivory from: Title:Procedure Note Heart & Vascular Author:Milan reeves MD, Leodan Doherty Date:01/11/22 Ordered: clopidogrel, 75 mg = 1 tab(s), Oral, Daily, X 90 day(s), # 90 tab(s), Refills(s) 3, Pharmacy: [id number], 186, cm, 01/10/22 14:52:00 EDT, Height/Length Dosing, 149, kg, 01/10/22 14:52:00 EDT, Weight Dosing clopidogrel, 300 mg = 4 tab(s), Oral, Once, 300 mg Loading Dose, # 4 tab(s), Refills(s) 0, Pharmacy: [id number], 186, cm, 01/10/22 14:52:00 EDT, Height/Length Dosing, 149, kg, 01/10/22 14:52:00 EDT, Weight Dosing fentanyl, 50 microgram = 1 mL, Injection, IV Push, q2min PRN Other (see comment) for 4 dose(s), Stop date Limited # of times, Routine, Start date 01/11/22 6:12:00 EDT, 01/11/22 6:12:00 EDT heparin, 5,000 unit(s) = 5 mL, Injection, IV Push, q2min PRN Other (see comment) for 4 dose(s), Stop date Limited # of times, Routine, Start date 01/11/22 6:12:00 EDT heparin, 1,000 unit(s) = 500 mL, Soln-IV, Misc, Once PRN Other (see comment), Routine, Start date 01/11/22 6:12:00 EDT heparin, 1,000 unit(s) = 500 mL, Soln-IV, Misc, Once PRN Other (see comment), Routine, Start date 01/11/22 6:12:00 EDT heparin, 1,000 unit(s) = 500 mL, Soln-IV, Misc, Once PRN Other (see comment), Routine, Start date 01/11/22 6:12:00 EDT iopamidol, = 50 mL, Injection, IV Push, q5min PRN Other (see comment) for 4 dose(s), Stop date Limited # of times, Routine, Start date 01/11/22 6:12:00 EDT iopamidol, = 200 mL, Injection, IV Push, q5min PRN Other (see comment) for 4 dose(s), Stop date Limited # of times, Routine, Start date 01/11/22 6:12:00 EDT lidocaine, 100 mg, 10 mL, Injection, SubCutaneous, q5min PRN Other (see comment) for 3 dose(s), Stop date Limited # of times, Routine, Start date 01/11/22 6:12:00 EDT midazolam, 1 mg = 1 mL, Injection, IV Push, q2min PRN Other (see comment) for 4 dose(s), Stop date Limited # of times, Routine, Start date 01/11/22 6:12:00 EDT niCARdipine 20 mg + Sodium Chloride 0.9% intravenous solution 200 mL, 200 mL, IV, titrate per protocol, Routine, Start date 01/11/22 6:12:00 EDT, Total volume (mL): 200, 149 kg, Use as directed for radial cocktail, 2.77, m2 nitroglycerin 50 mg [5 mcg/min] + Dextrose 5% in Water intravenous solution 250 mL, 250 mL, IV, 1.5 mL/hr, Routine, Start date 01/11/22 6:12:00 EDT, 166.7 hour(s), Total volume (mL): 250, 149 kg, 2.77, m2 Sodium Chloride 0.9% intravenous solution 1,000 mL, 1,000 mL, IV, 75 mL/hr, Routine, Start date 01/11/22 6:12:00 EDT, 13.3 hour(s), Total volume (mL): 1,000, 149 kg, 2.77, m2 verapamil, 2.5 mg = 1 mL, Soln-IV, IV Push, q2min PRN Other (see comment), Routine, Start date 01/11/22 6:12:00 EDT, as directed for radial cocktail Automated Diff Basic Metabolic Panel CBC w/ Auto Diff Communication Order Communication Order Communication Order Communication Order Communication Order Communication Order Communication Order Communication Order Communication Order CV Cardiovascular CV Coronary IVUS FFR Initial CV Coronary IVUS Initial ECG 12 Lead Adult Echo Transthoracic Complete eGFR NPO Diet Oxygen Protocol Patient Education Routine Capillary Glucose POC Saline Lock Insert Future Appointments Appointment Date:01/30/2022 03:15:00 PM Scheduled Provider:Leodan Gay MD Location:[facility] Appointment Type:Cardiology Follow Up ([facility]) Future Scheduled Tests Radiology* Echo Transthoracic Complete 01/10/22 [facility]05-19-2022 Evaluation note* Encounter Date Diagnosis Assessment Notes Treatment Notes Treatment Clinical Notes December, BRENDEN (acute kidney injury) (ICD-10 - N17.9) Patient presented with BRENDEN related to obstructive uropathy in the setting of low blood pressure and UTI that improved after insertion of stent and retrieval of 1 kidney stone. Serum creatinine is down to 1.1 mg/dL close to baseline. Patient still has ureteral stent. We will recheck renal panel in 2 to 3 months. I will call the patient if intervention is needed. Patient mentioned that he will find another production tool engineer that is included in his insurance network since we are not. He was advised to call our service if he has any question or concern. He stated that eventually he will need to change his insurance to include our group since he would like to have all his medical care in [facility]. No change of medications at this point. December, Nephrolithiasis (ICD-10 - N20.0) Patient had recurrent nephrolithiasis because of which is not clear. He had normal calcium and H during hospital stay. Patient will need 24-hour urine collection for crystals and stone analysis to provide instruction about prevention of further stones. General instruction about stone prevention including ample water intake , low-salt diet and low protein diet has been addressed. Patient stated that our nephrology group it is not included in his insurance network and he would like to proceed with further work-up and management with another production tool engineer who is in his network till he changes insurance. December, DM hyperosmolarity type II (ICD-10 - E11.00) Patient follow-up with Dr. Beard for diabetes management. He stated that diabetes is better controlled. December, Hypertension (ICD-10 - I10) Blood pressure is well controlled on current medications including lisinopril. [employer] Other 04-25-2022 Hospital Discharge instructions Patient Education 12/03/2021 10:26:51 Calorie Counting for Weight Loss Calorie Counting for Weight Loss Calories are units of energy. Your body needs a certain amount of calories from food to keep you going throughout the day. When you eat more calories than your body needs, your body stores the extra calories as fat. When you eat fewer calories than your body needs, your body gooden fat to get the energy it needs. Calorie counting means keeping track of how many calories you eat and drink each day. Calorie counting can be helpful if you need to lose weight. If you make sure to eat fewer calories than your bodyneeds, you should lose weight. Ask your health care provider what a healthy weight is for you. For calorie counting to work, you will need to eat the right number of calories in a day in order to lose a healthy amount of weight per week. A dietitian can help you determine how many calories youneed in a day and will give you suggestions on how to reach your calorie goal. A healthy amount of weight to lose per week is usually 1 2 lb (0.5 0.9 kg). This usually means thatyour daily calorie intake should be reduced by 500 750 calories. Eating 1,200 1,500 calories per day can help most women lose weight. Eating 1,500 1,800 calories per day can help most men lose weight. What is my plan? My goal is to have calories per day. If I have this many calories per day, I should lose around pounds per week. What do I need to know about calorie counting? In order to meet your daily calorie goal, you will need to: Find out how many calories are in each food you would like to eat. Try to do this before you eat. Decide how much of the food you plan to eat. Write down what you ate and how many calories it had. Doing this is called keeping a food log. To successfully lose weight, it is important to balance calorie counting with a healthy lifestyle that includes regular activity. Aim for 150 minutes of moderate exercise (such as walking) or 75 minutes of vigorous exercise (such as running) each week. Where do I find calorie information? The number of calories in a food can be found on a Nutrition Facts label. If a food does not have aNutrition Facts label, try to look up the calories online or ask your dietitian for help. Remember that calories are listed per serving. If you choose to have more than one serving of a food, you will have to multiply the calories per serving by the amount of servings you plan to eat. Forexample, the label on a package of bread might say that a serving size is 1 slice and that there are 90 calories in a serving. If you eat 1 slice, you will have eaten 90 calories. If you eat 2 slices, you will have eaten 180 calories. How do I keep a food log? Immediately after each meal, record the following information in your food log: What you ate. Don't forget to include toppings, sauces, and other extras on the food. How much you ate. This can be measured in cups, ounces, or number of items. How many calories each food and drink had. The total number of calories in the meal. Keep your food log near you, such as in a small notebook in your pocket, or use a mobile sarah or website. Some programs will calculate calories for you and show you how many calories you have left forthe day to meet your goal. What are some calorie counting tips? Use your calories on foods and drinks that will fill you up and not leave you hungry: ?Some examples of foods that fill you up are nuts and nut butters, vegetables, lean proteins, and high-fiber foods like whole grains. High-fiber foods are foods with more than 5 g fiber per serving. ?Drinks such as sodas, specialty coffee drinks, alcohol, and juices have a lot of calories, yet do not fill you up. Eat nutritious foods and avoid empty calories. Empty calories are calories you get from foods or beverages that do not have many vitamins or protein, such as candy, sweets, and soda. It is better to have a nutritious high-calorie food (such as an avocado) than a food with few nutrients (such as a bag of chips). Know how many calories are in the foods you eat most often. This will help you calculate calorie counts faster. Pay attention to calories in drinks. Low-calorie drinks include water and unsweetened drinks. Pay attention to nutrition labels for low fat or fat free foods. These foods sometimes have thesame amount of calories or more calories than the full fat versions. They also often have added sugar, starch, or salt, to make up for flavor that was removed with the fat. Find a way of tracking calories that works for you. Get creative. Try different apps or programs ifwriting down calories does not work for you. What are some portion control tips? Know how many calories are in a serving. This will help you know how many servings of a certain food you can have. Use a measuring cup to measure serving sizes. You could also try weighing out portions on a kitchenscale. With time, you will be able to estimate serving sizes for some foods. Take some time to put servings of different foods on your favorite plates, bowls, and cups so you know what a serving looks like. Try not to eat straight from a bag or box. Doing this can lead to overeating. Put the amount you would like to eat in a cup or on a plate to make sure you are eating the right portion. Use smaller plates, glasses, and bowls to prevent overeating. Try not to multitask (for example, watch TV or use your computer) while eating. If it is time to eat, sit down at a table and enjoy your food. This will help you to know when you are full. It will also help you to be aware of what you are eating and how much you are eating. What are tips for following this plan? Reading food labels Check the calorie count compared to the serving size. The serving size may be smaller than what youare used to eating. Check the source of the calories. Make sure the food you are eating is high in vitamins and proteinand low in saturated and trans fats. Shopping Read nutrition labels while you shop. This will help you make healthy decisions before you decide to purchase your food. Make a grocery list and stick to it. Cooking Try to cook your favorite foods in a healthier way. For example, try baking instead of frying. Use low-fat dairy products. Meal planning Use more fruits and vegetables. Half of your plate should be fruits and vegetables. Include lean proteins like poultry and fish. How do I count calories when eating out? Ask for smaller portion sizes. Consider sharing an entree and sides instead of getting your own entree. If you get your own entree, eat only half. Ask for a box at the beginning of your meal and put the rest of your entree in it so you are not tempted to eat it. If calories are listed on the menu, choose the lower calorie options. Choose dishes that include vegetables, fruits, whole grains, low-fat dairy products, and lean protein. Choose items that are boiled, broiled, grilled, or steamed. Stay away from items that are buttered,battered, fried, or served with cream sauce. Items labeled crispy are usually fried, unless stated otherwise. Choose water, low-fat milk, unsweetened iced tea, or other drinks without added sugar. If you want an alcoholic beverage, choose a lower calorie option such as a glass of wine or light beer. Ask for dressings, sauces, and syrups on the side. These are usually high in calories, so you should limit the amount you eat. If you want a salad, choose a garden salad and ask for grilled meats. Avoid extra toppings like clifford, cheese, or fried items. Ask for the dressing on the side, or ask for olive oil and vinegar or lemon to use as dressing. Estimate how many servings of a food you are given. For example, a serving of cooked rice is cup orabout the size of half a baseball. Knowing serving sizes will help you be aware of how much food you are eating at restaurants. The list below tells you how big or small some common portion sizes arebased on everyday objects: ?1 oz 4 stacked dice. ?3 oz 1 deck of cards. ?1 tsp 1 . ?1 Tbsp a ping-pong ball. ?2 Tbsp 1 ping-pong ball. ? cup baseball. ?1 cup 1 baseball. Summary Calorie counting means keeping track of how many calories you eat and drink each day. If you eat fewer calories than your body needs, you should lose weight. A healthy amount of weight to lose per week is usually 1 2 lb (0.5 0.9 kg). This usually means reducing your daily calorie intake by 500 750 calories. The number of calories in a food can be found on a Nutrition Facts label. If a food does not have aNutrition Facts label, try to look up the calories online or ask your dietitian for help. Use your calories on foods and drinks that will fill you up, and not on foods and drinks that will leave you hungry. Use smaller plates, glasses, and bowls to prevent overeating. This information is not intended to replace advice given to you by your health care provider. Make sure you discuss any questions you have with your health care provider. Document Released: 07/28/2006 Document Revised: 04/16/2019 Document Reviewed: 06/27/2017 [employer] Patient Education 2020 [employer] 12/03/2021 10:26:44 Kidney Stones, [id number] Kidney Stones Kidney stones are rock-like masses that form inside of the kidneys. Kidneys are organs that make pee (urine). A kidney stone may move into other parts of the urinary tract, including: The tubes that connect the kidneys to the bladder (ureters). The bladder. The tube that carries urine out of the body (urethra). Kidney stones can cause very bad pain and can block the flow of pee. The stone usually leaves your body (passes) through your pee. You may need to have a doctor take out the stone. What are the causes? Kidney stones may be caused by: A condition in which certain glands make too much parathyroid hormone (primary hyperparathyroidism). A buildup of a type of crystals in the bladder made of a chemical called uric acid. The body makes uric acid when you eat certain foods. Narrowing (stricture) of one or both of the ureters. A kidney blockage that you were born with. Past surgery on the kidney or the ureters, such as gastric bypass surgery. What increases the risk? You are more likely to develop this condition if: You have had a kidney stone in the past. You have a family history of kidney stones. You do not drink enough water. You eat a diet that is high in protein, salt (sodium), or sugar. You are overweight or very overweight (obese). What are the signs or symptoms? Symptoms of a kidney stone may include: Pain in the side of the belly, right below the ribs (flank pain). Pain usually spreads (radiates) to the groin. Needing to pee often or right away (urgently). Pain when going pee (urinating). Blood in your pee (hematuria). Feeling like you may vomit (nauseous). Vomiting. Fever and chills. How is this treated? Treatment depends on the size, location, and makeup of the kidney stones. The stones will often pass out of the body through peeing. You may need to: Drink more fluid to help pass the stone. In some cases, you may be given fluids through an IV tube put into one of your veins at the hospital. Take medicine for pain. Make changes in your diet to help keep kidney stones from coming back. Sometimes, medical procedures are needed to remove a kidney stone. This may involve: A procedure to break up kidney stones using a beam of light (laser) or shock waves. Surgery to remove the kidney stones. Follow these instructions at home: Medicines Take fxui-[id number]-pvznktp and prescription medicines only as told by your doctor. Ask your doctor if the medicine prescribed to you requires you to avoid driving or using heavy machinery. Eating and drinking Drink enough fluid to keep your pee pale yellow. You may be told to drink at least 8 10 glasses of water each day. This will help you pass the stone. If told by your doctor, change your diet. This may include: ?Limiting how much salt you eat. ?Eating more fruits and vegetables. ?Limiting how much meat, poultry, fish, and eggs you eat. Follow instructions from your doctor about eating or drinking restrictions. General instructions Collect pee samples as told by your doctor. You may need to collect a pee sample: ?24 hours after a stone comes out. ?8 12 weeks after a stone comes out, and every 6 12 months after that. Strain your pee every time you pee (urinate), for as long as told. Use the strainer that your doctor recommends. Do not throw out the stone. Keep it so that it can be tested by your doctor. Keep all follow-up visits as told by your doctor. This is important. You may need follow-up tests. How is this prevented? To prevent another kidney stone: Drink enough fluid to keep your pee pale yellow. This is the best way to prevent kidney stones. Eat healthy foods. Avoid certain foods as told by your doctor. You may be told to eat less protein. Stay at a healthy weight. Where to find more information National Kidney Foundation (NKF): www.kidney.org [employer] (UCF): www.urologyhealth.org Contact a doctor if: You have pain that gets worse or does not get better with medicine. Get help right away if: You have a fever or chills. You get very bad pain. You get new pain in your belly (abdomen). You pass out (faint). You cannot pee. Summary Kidney stones are rock-like masses that form inside of the kidneys. Kidney stones can cause very bad pain and can block the flow of pee. The stones will often pass out of the body through peeing. Drink enough fluid to keep your pee pale yellow. This information is not intended to replace advice given to you by your health care provider. Make sure you discuss any questions you have with your health care provider. Document Released: 01/13/2009 Document Revised: 12/14/2019 Document Reviewed: 12/14/2019 [employer] Patient Education 2019 [employer]. Follow Up Care 11/26/2021 11:29:08 With:DOMINGUEZ ACEVEDO, Estuardo Peralta, URL Address: [facility] [address] [place] [phone] When: Unknown Comments:Will check KUB and then schedule ESWL vs Holmium laser stone surgery. [facility] evaluation + Plan note No data available for this section [facility] evaluation + Plan note Future Appointments Appointment Date:01/11/2022 08:00:00 AM Scheduled Provider: [facility] (FT) Future Scheduled Tests Radiology* Echo Transthoracic Complete 01/10/22 * [facility]ments Appointment Date:01/30/2022 03:15:00 PM Scheduled Provider:Leodan Gay MD [facility] + Plan note Future Appointments Appointment Date:08/01/2022 11:45:00 AM Scheduled Provider:Leodan Gay MD [facility]Cardiology Follow Up (FT) Future Scheduled Tests Laboratory* [facility] Future Appointments Appointment Date:03/19/2022 10:00:00 AM Scheduled Provider: [facility] Type:Cardiology Nurse Visit (FT) Appointment Date:08/01/2022 11:45:00 AM Scheduled Provider:Leodan Gay MD [facility] Type:Cardiology Follow Up (FT) Future Scheduled Tests Laboratory* [facility] Future Appointments Appointment Date:06/26/2022 01:45:00 PM Scheduled Provider:Estuardo MIX MD Location:[facility] [place] Appointment Type:URO Office Visit Appointment Date:08/01/2022 11:45:00 AM Scheduled Provider:Leodan Gay MD [facility]:Cardiology Follow Up (FT) Future Scheduled Tests Laboratory* [facility] Future Appointments Appointment Date:08/01/2022 11:45:00 AM Scheduled Provider:Leodan Gay MD [facility] Type:Cardiology Follow Up (FT) Appointment Date:07/09/2023 10:30:00 AM Scheduled Provider:Estuardo MIX MD Location:[facility] Appointment Type:URO Office Visit Future Scheduled Tests Laboratory* Lipid Panel 01/30/22 [facility] Evaluation + Plan note Future Appointments Appointment Date:07/09/2023 10:30:00 AM Scheduled Provider:Estuardo MIX MD Location:[facility] Appointment Type:URO Office Visit Future Scheduled Tests Laboratory* [facility]id [facility] App[facility]ments Appointment Date:07/09/2023 10:30:00 AM Scheduled Provider:Estuardo MIX MD Location:[facility] Appointment Type:URO Office Visit Future Scheduled Tests Laboratory* Lipid Panel 02/13/23 * [facility] Future Appointments Appointment Date:05/26/2023 09:00:00 AM Scheduled Provider: Location:[facility] Appointment Type:Surgery FT Appointment Date:07/09/2023 10:30:00 AM Scheduled Provider:Estuardo MIX MD Location:[facility] Appointment Type:URO Office Visit [facility] [place] Evaluation + Plan note Future Appointments Appointment Date:06/12/2023 03:00:00 PM Scheduled Provider: Location:[facility] Appointment Type:Surgery FT Appointment Date:07/09/2023 10:30:00 AM Scheduled Provider:Estuardo MIX MD Location:[facility] Appointment Type:URO [facility] noteNo assessment information available [facility] Work Phone: History general Narrative - Reported* Type Description Date Medical History diabetes mellitis Medical History Cholesterol Medical History kidney stones Medical History DAGOBERTO Medical History 2 stents placed Medical History ACUTE KIDNEY INJURY Medical History RENAL CALCULUS, BILATERAL Medical History URINARY TRACT INFECTION Medical History TYPE 2 MYOCARDIAL INFARCTION Medical History ACUTE RENAL FAILURE Medical History HEART ATTACK Medical History VERTIGO Surgical History right hip replacement Surgical History HEART STENTS X 2 Hospitalization History hip replacement Hospitalization History SEE ABOVE [employer] Other Hospital Discharge instructions No data available for this section [facility] data available for this section [facility] Family History No Family History Records FoundUnknown Family Member Name Dates Details Family history of diabetes m ellitus: Father, Sister, Brother(V18.0, Z83.3) Status:Active Family history of hypertensi on: Mother(V17.49, Z82.49) Status:Active Heart problem: Mother, Fathe r Status:Active Unknown Family Member Name Dates Details Family history of diabetes m ellitus: Father, Sister, Brother(V18.0, Z83.3) Status:Active Family history of hypertensi on: Mother(V17.49, Z82.49) Status:Active Heart problem: Mother, Fathe r Status:Active Unknown Family Member Name Dates Details Family history of diabetes m ellitus: Father, Sister, Brother(V18.0, Z83.3) Status:Active Family history of hypertensi on: Mother(V17.49, Z82.49) Status:Active Heart problem: Mother, Fathe r Status:Active Unknown Family Member Name Dates Details Family history of diabetes m ellitus: Father, Sister, Brother(V18.0, Z83.3) Status:Active Family history of hypertensi on: Mother(V17.49, Z82.49) Status:Active Heart problem: Mother, Fathe r Status:Active Relationship Condition Age at Onset Recorded Date/T angel father Diabetes mellitus Unknown Myocardial infarction Unknown Not Specified Hypertension Unknown brother Diabetes mellitus Unknown sister Diabetes mellitus Unknown Unknown Family Member Name Dates Details Family history of diabetes m ellitus: Father, Sister, Brother(V18.0, Z83.3) Status:Active Family history of hypertensi on: Mother(V17.49, Z82.49) Status:Active Heart problem: Mother, Fathe r Status:Active Unknown Family Member Name Dates Details Family history of diabetes m ellitus: Father, Sister, Brother(V18.0, Z83.3) Status:Active Family history of hypertensi on: Mother(V17.49, Z82.49) Status:Active Heart problem: Mother, Fathe r Status:Active Summary Purpose Advance Directives No Advanced Directives Records Found Advance Directive Response Recorded Date/ Time Advance Directives No September 12:23pm Chief Complaint and Reason for Visit Chief Complaint MARGARITO only- vertigo Additional Source Comments (unrecognized sect ion and content) No Status Records FoundNo Status Records FoundNo Status Records FoundNo Status Records FoundNo Status Records FoundNo Status Records FoundNo Status Records FoundNo Status Records Found INFORMATION SOURCE (unrecogn ized section and content) DATE CREATED AUTHOR 10/31/2021 [employer] DATE CREATED AUTHOR AUTHOR'S ORGANIZ ATION 05/11/2022 [facility] DATE CREATED AUTHOR AUTHOR'S ORGANIZ ATION 09/14/2022 [facility] DATE CREATED AUTHOR AUTHOR'S ORGANIZ ATION 10/02/[address] [facility] dical Specialist DATE CREATED AUTHOR AUTHOR'S ORGANIZ ATION 12/07/2022 [facility] DATE CREATED AUTHOR AUTHOR'S ORGANIZ ATION 07/09/2023 [facility] DATE CREATED AUTHOR AUTHOR'S ORGANIZ ATION [facility] DATE CREATED AUTHOR AUTHOR'S ORGANIZ ATION 08/28/[address] [facility] dical Specialists EPIC Care Team (unrecognized sect ion and content) Team Status: Inactive Member Role Status Dates Sanju Beard DO Primary Care Provider, Rosaura velez Active Team Status: Active Member Role Status Dates Sanju Beard DO Primary Care Provider Active Team Status: Active Member Role Status Dates Sanju Beard DO Primary Care Provider, Attending Yoni velez Active REASON FOR VISIT (unrecogniz ed section and content) RENAL HOSP F/U BRENDEN and obstr uctive uropathy Goals (unrecognized section and content) Goals may be documented in a n alternate section FOR RECORDS PERTAINING TO PATIENTS WHO ARE OR HAVE BEEN ENROLLED IN A CHEMICAL DEPENDENCY/SUBSTANCEABUSE PROGRAM, SOME INFORMATION MAY BE OMITTED. This clinical summary was aggregated from multiple sources. Caution should be exercised in using it in the provision of clinical care. This summary normalizes information from multiple sources, and as a consequence, information in this document may materially change the coding, format and clinical context of patient data. In addition, data may be omitted in some cases. CLINICAL DECISIONS SHOULD BE BASED ON THE PRIMARY CLINICAL RECORDS. [facility] [employer] [facility]. provides no warranty or guarantee of the accuracy or completeness of information in this document.
--- NOTE | 2023-08-28 10:04 | P.CN_ITS ---
Consult Note: HPI Data of Consult Patient: known to practice within the last 3 years Requesting Physician: Elizabeth Meza NP Primary Care Provider: ROSA M BEARD Consult Narrative Reason for consult: f/u Narrative: Everette Cartagena a pleasant 63 year old male presents for evaluation and management of chronic low back pain with numbness tingling weakness to left leg and bilateral feet. Patient stopped gabapentin and is now on zonegran 200mg HS but found better benefit from gabapentin. Patient notices no difference with baclofen. Patient underwent L4-5 KASSI with 70% relief for a few days, but now returned to baseline. Pain 6/10 heaviness, weakness, numbness tingling to left leg/foot cc:: CC: Elizabeth Meza NP Review of Systems ROS Status of ROS 10 or more systems reviewed and unremark able except as noted in history and below Musculoskeletal Reports: back pain, extremity pain and muscle weakness Meds Home Medications and Allergies Home Medications Medication Instructions Recorded Confirmed Type allopurinol 100 mg tablet 100 mg PO DAILY 05/17/23 08/19/23 History atorvastatin 40 mg tablet 40 mg PO DAILY 05/17/23 08/19/23 History clopidogrel 75 mg tablet 75 mg PO DAILY 05/17/23 08/19/23 History clotrimazole-betamethasone 1 1 applic topical BID 05/17/23 08/19/23 History %-0.05 % topical cream isosorbide mononitrate 30 mg 30 mg PO DAILY 05/17/23 08/19/23 History tablet,extended release 24 hr lisinopril 20 mg tablet 20 mg PO DAILY 05/17/23 08/19/23 History metformin 1,000 mg tablet 1,000 mg PO BID 05/17/23 08/19/23 History semaglutide 2 mg/dose (8 mg/3 mL) 2 mg subcut QWEEK 05/17/23 08/19/23 History subcutaneous pen injector (Ozempic) aspirin 81 mg tablet,delayed 81 mg PO DAILY 08/01/23 08/19/23 History release baclofen 10 mg tablet 10 mg PO DAILY 08/01/23 08/19/23 History carvedilol 6.25 mg tablet 6.25 mg PO BID 08/01/23 08/19/23 History insulin aspart U-100 100 unit/mL 25 unit subcut TID 08/01/23 08/19/23 History (3 mL) subcutaneous pen (Novolog FlexPen U-100 Insulin aspart) insulin detemir U-100 100 unit/mL 32 unit subcut BID 08/01/23 08/19/23 History (3 mL) subcutaneous pen (Levemir FlexPen) zinc sulfate .ROUTE 08/01/23 History zonisamide 100 mg capsule 100 mg PO DAILY 08/01/23 08/19/23 History (Zonegran) Allergies Allergy/AdvReac Type Severity Reaction Status Date / Time No Known Drug Allergies Allergy Verified 05/17/23 17:26 Exam Constitutional Documenting provider has reviewed patient's vital signs: yes Common normals: no apparent distress, oriented x3, healthy appearing, alert and well nourished General appearance: cooperative HENMT Common normals: normocephalic, hearing grossly normal bilaterally and moist oral mucous membranes Head and scalp: normocephalic Eye Common normals: PERRL Pupil: PERRL Neck & C-Spine Common normals: full ROM General: normal visual inspection Chest Common normals: inspection of chest normal Respiratory Common normals: normal respiratory effort, no retractions and no use of accessory muscles Back & Pelvis Lumbar spine/lower back: pain with ROM and straight leg raise negative bilaterally Other: negative straight leg raise radicular pain and heaviness weakness to LLE Extremity Common normals: normal to inspection and full ROM Neuro Common normals: oriented x3, CN's II-XII intact bilaterally, moves all extremities, no focal motor deficits, no sensory deficits noted and deep tendon reflexes 2+ bilaterally Sensorium/orientation: alert Motor exam: no movement abnormalities noted and strength abnormal (4/5 in LLE) Psych Common normals: mental status grossly normal, thought process normal, cooperative, affect normal, speech normal and activity/motor behavior normal Speech: normal speech Thought process: normal thought process Results Additional Findings Additional findings: I have checked an [facility] report on this patient today and there are no aberrancies noted in the prescribing history.?? A drug screen was completed and reviewed within the last year, and if there has not been a drug screen completed we ordered one today to monitor higher risk, state monitored pain medication use. As part of providing excellent, safe, comprehensive care, the following was completed at our patient's visit: 1. A medication reconciliation and review to ensure accurate knowledge of current/active medications, including asking our patients to inform us about any [id number] medications or herbal remedies/nutritional supplements/alternative remedies. 2. A review to specifically ensure our patients have had annual screening for: elevated body mass index (BMI), tobacco use, screening for depression, and screening for unhealthy alcohol use. When screening is concerning, patients are provided with education and the specific recommendation to discuss the concerning health issue and treatment options with their primary care provider. Assessment and Plan Assessment and Plan (1) Lower leg pain: (2) Peripheral neuropathy: (3) Lumbar stenosis with neurogenic claudication: (4) Obesity: Assessment and Plan: The patient was counseled that proper dietary changes and consistent participation in a home exercise plan can lead to weight loss. Weight loss can help to improve functionality in patients with chronic pain.? (5) Diabetes mellitus: Plan increase zonegran to 300mg daily NS referral a1c prior to next appointment, continue f/u with PCP consider L5-S1 KASSI at next visit f/u 2 months
== END 2023-08-28 09:38 | disposition home or self-care (01) ==
PROVIDERS: PCP Internal Medicine; Visit Provider Nurse Practitioner
DX: M79.662 Pain in left lower leg (principal); M79.661 Pain in right lower leg; G62.9 Polyneuropathy, unspecified; M48.062 Spinal stenosis, lumbar region with neurogenic claudication; E66.9 Obesity, unspecified; E11.8 Type 2 diabetes mellitus with unspecified complications
CPT/HCPCS: G0463